=== PATIENT | female | born 1955 | race Caucasian/White ===

== ENCOUNTER 2016-12-10 16:05 | Inpatient (IN) ==
[2016-12-10] MEDS ORDERED: ASPIRIN 325 MG TABLET PO STA (18:21)
[2016-12-10] MEDS ORDERED: MORPHINE 2 MG/1 ML SYRINGE IV STA (18:21)
[2016-12-10] MEDS ORDERED: methylPREDNISolone SOD SUC 125 MG/2 ML VIAL IV STA (18:21)
[2016-12-10] MEDS ORDERED: FUROSEMIDE 100 MG/10 ML VIAL IV STA (18:21)
[2016-12-10] MEDS ORDERED: ONDANSETRON 4 MG/2 ML VIAL IV STA (18:21)
[2016-12-10 18:30] LABS: Basophils % 0.7 % (0.0-0.8); Eosinophils # 0.1 10*3/uL (0.0-0.87); Eosinophils % 1.1 % (0.00-10.9); Hemoglobin 10.1 GM/DL (12.0-16.0); Immature Granulocytes % 0.2 %; Immature Granulocytes Absolute 0.01 #; Lymphocytes % 18.3 % (21.3-54.2); Mean Corpuscular HGB Conc 28.6 GM/DL (32-36); Mean Corpuscular Hemoglobin 23 PG (27-34); Mean Corpuscular Volume 80.8 FL (87-102); Monocytes # 0.8 10*3/uL (0.11-0.8); Monocytes % 14.7 % (1.7-12.7); NRBC # 0.02 10*3/uL; Neutrophils # 3.7 10*3/uL (1.4-7.4); Platelet Count 114 10*3/uL (130-400); Red Blood Count 4.37 10*6/uL (3.8-5.5); Red Cell Distribution Width 17.6 % (9.3-17.3); White Blood Count 5.6 10*3/uL (4.5-13.71)
[2016-12-10] MEDS ORDERED: ALBUTEROL 2.5 MG/3 ML NEB RESP TX SCH (18:30)
[2016-12-10 18:31] LABS: Hematocrit 35.3 VOL% (35.7-47.0)
[2016-12-10] MEDS ORDERED: methylPREDNISolone SOD SUC 125 MG/2 ML VIAL ONE (18:35)
[2016-12-10] MEDS ORDERED: FUROSEMIDE 40 MG/4 ML VIAL ONE (18:35)
[2016-12-10] MEDS ORDERED: MORPHINE 2 MG/1 ML SYRINGE ONE (18:35)
[2016-12-10] MEDS ORDERED: FUROSEMIDE 20 MG/2 ML VIAL ONE (18:35)
[2016-12-10] MEDS ORDERED: ASPIRIN 325 MG TABLET ONE (18:35)
[2016-12-10] MEDS ORDERED: ONDANSETRON 4 MG/2 ML VIAL ONE (18:35)
--- NOTE | 2016-12-10 18:38 | XRay Report ---
PA chest. Indication: Shortness of breath. Comparison: October 30, 2016. The cardiac silhouette is markedly enlarged. The cardiac hardware is in satisfactory position. The pulmonary vasculature is normal. Obscuration of the left hemidiaphragm may be related to atelectasis or infiltrate. Mild atelectasis at the right lung base. Impression: Persistent enlargement of the cardiac silhouette. Bilateral basilar atelectasis. Infiltrate at the left base cannot be excluded. PROCEDURE INTERPRETED AT [facility] DEPARTMENT OF RADIOLOGY Final Report Signed by: Dr. Perla Nogueira
--- NOTE | 2016-12-10 18:45 | Emergency Department Note ---
IJuan Brittany, am scribing for, and in the presence of, Pelon Akers MD 18:26. Delphine Trujillo Charles R, MD, personally performed the services described in this documentation, ascribed by Genia Martinez in my presence, and it is both accurate and complete [id number] . Arrival - Arrival Chief Complaint: Shortness of Breath Stated Complaint: can't breath ED Nursing Triage Note: pt got more sob than normal over then weekend. pt was told by home health to come to the er for decreased breath sounds on rt lower lobe. Mode of Arrival: Wheelchair Limitations: No Limitations Source: Patient, Family Time Seen by Provider: 12/10/16 18:11 - History of Present Illness HPI Narrative: This is a 61 y/o white female,who presents to the ED with c/o dyspnea which started 2 days ago. Her family states she was seen by Home health over the weekend and had diminished breath sounds in the right lung. She reports she is SOB and nauseated. Per pt, "I feel like I'm 8 months from fluid." Pt has no other complaints/pain in the ED at this time. Pt has a PMHx of IDDM, CHF , HTN, pacemaker, cardiac dysrhythmia, COPD, obstructive sleep apnea, and GERD. Pt has had a cardiac cath, internal defibillator, colonoscopy, hysterectomy, gynecologic surgery, and orthopedic surgery. Pt has a family medical Hx of cancer, diabetes, heart disease, and HTN. Pt denies a social Hx. Onset (ago): day(s) (Started 2 days ago) Consistency: constant Severity: moderate Allergies/Adverse Reactions: Allergies Allergy/AdvReac Type Severity Reaction Status Date / Time nitrofurantoin Allergy ITCHING Verified 08/21/16 12:38 [From Macrobid] Penicillins Allergy ITCHING Verified 08/21/16 12:38 Home Medications: Home Medications Medication Instructions Recorded Confirmed Type Albuterol Sulfate [Ventolin HFA] 2 puff INH Q6HR PRN 05/03/16 12/10/16 History Cilostazol [Pletal] 50 mg PO BID 05/03/16 12/10/16 History Gabapentin 600 mg PO BID 05/03/16 12/10/16 History Insulin Glargine,Hum.rec.anlog 10 unit SUBCUT DAILY 05/03/16 12/10/16 History [Lantus SoloStar] Lisinopril 5 mg PO DAILY 05/03/16 12/10/16 History Pantoprazole Tab [Protonix Tab] 40 mg PO DAILY 05/03/16 12/10/16 History Zolpidem [Ambien] 5 mg PO BEDTIME PRN 05/03/16 12/10/16 History Budesonide/Formoterol 160-4.5 2 puff INH DAILY 05/04/16 12/10/16 History [Symbicort 160-4.5] Atorvastatin Calcium 10 mg PO DAILY 08/24/16 12/10/16 History Isosorbide Mononitrate [Isosorbide 30 mg PO QAM 08/24/16 12/10/16 History Mononitrate ER] PARoxetine [Paxil] 20 mg PO DAILY 08/24/16 12/10/16 History Carvedilol [Coreg] 6.25 mg PO BID #60 tablet 11/02/16 12/10/16 Rx Ferrous Sulfate Tab [Feosol 325 mg PO DAILY #30 tablet 11/02/16 12/10/16 Rx Original Tab] Furosemide Tab [Lasix Tab] 40 mg PO BID DIURETIC #60 tablet 11/02/16 12/10/16 Rx Aspirin Chew Tab 81 mg PO DAILY 12/10/16 12/10/16 History Digoxin Tab [Lanoxin Tab] 0.125 mg PO DAILY 12/10/16 12/10/16 History Levothyroxine Tab [Synthroid Tab] 125 mcg PO DAILY 12/10/16 12/10/16 History Sulfameth/Trimeth 800-160 Tab 1 tablet PO BID 12/10/16 12/10/16 History [Bactrim DS Tab] Medical,Surgical,& Family Hx - Medical History Cardio: History of: Cardiac Dysrhythmia, CHF, Hypertension, Pacemaker (ICD) Neurology: No history of: Seizures Endocrine: History of: Diabetes Mellitus (IDDM) Respiratory: History of: COPD, Obstructive Sleep Apnea, Pneumonia Genitourinary: History of: Kidney Stones Gastrointestinal: History of: GERD - Surgical History Cardiac Surgeries: Sugical HX of: Cardiac Catheterization, Internal Defibrillator Thoracic Surgeries: Patient denies;: Lobectomy Neurologic Surgeries: Patient denies: Neurologic Surgery HEENT Surgeries: Patient denies: Eye Surgery, Tonsilectomy & Adenoidectomy Abdominal Surgeries: Surgical HX of: Colonoscopy Reproductive Surgeries: Surgical HX of;: Gynecologic Surgery, Hysterectomy Orthopedic Surgeries: Surgical HX of;: Orthopedic Surgery - Family History Family History: Reports;: Family Cancer, Family Diabetes, Family Heart Disease, Family Hypertension - Social History Smoking Status: Never smoker Frequency of Alcohol Use: None Type of Drug Use: None Exam Vital Signs: Vital Signs Temperature 100.2 F H 12/10/16 17:06 Pulse Rate 88 12/10/16 17:06 Respiratory Rate 20 12/10/16 17:06 Blood Pressure 124/69 12/10/16 17:06 O2 Sat by Pulse Oximetry 94 L 12/10/16 17:06 Course - Consultations Consultation #1: Dr. Jerez will admit patient Time: 20:24 Results - Labs CBC & BMP: 12/10/16 18:14 12/10/16 18:14 Lab Results: I have reviewed the patients labs Critical Care Time Critical Care Time: Yes Total Critical Care Time: 60 Disposition Clinical Impression: Cardiomyopathy, Hypertension, CHF (congestive heart failure), Exertional dyspnea, CHF exacerbation Case discussed with: patient, patient's family Disposition: Still a Patient Condition: Guarded Time of Disposition: 20:25
[2016-12-10 18:54] LABS: Albumin 3.4 G/DL (3.4-5.0); Bilirubin,Total 2.9 MG/DL (0.2-1.0); Calcium 8.4 MG/DL (8.5-10.1); Osmolality,Calculated 290.8 MOS/KG (273-304); Total Protein 6.3 G/DL (6.4-8.3)
[2016-12-10 18:59] LABS: Troponin I Only 0.124 NG/ML (0.00-0.045)
--- NOTE | 2016-12-10 20:08 | CT Report ---
CT of the chest with intravenous contrast, PE protocol. Axial images were obtained with sagittal and coronal 2-D and 3 days reconstructions. 80 cc omni-350. Indication: Shortness of breath. Elevated d-dimer. There is no evidence of pulmonary thromboembolism. The cardiac silhouette is markedly enlarged. A pacemaker is in place. There is increased pericardial fluid inferiorly and posteriorly at the heart. There is a moderate right pleural effusion. There are shotty lymph nodes present in the hilar and mediastinal regions bilaterally, with maximum diameters measuring up to 12 mm. There are bilateral groundglass infiltrates, nonspecific but may be related to 6 pulmonary edema. There is a large hiatal hernia which contains the entire stomach which is turned upon itself. There is also a left Bochdalek hernia which contains fat. There is edema in the subcutaneous tissues. Impression: 1. No evidence of pulmonary thromboembolism. 2. Enlarged heart, with increased pericardial fluid. 3. Nonspecific groundglass infiltrates, may be related to pulmonary edema. 4. Moderate right pleural effusion. 5. Subcutaneous edema. 6. Large hiatal hernia containing the entire stomach, which is turned upon itself. Additional left Bochdalek hernia. PROCEDURE INTERPRETED AT [facility] DEPARTMENT OF RADIOLOGY Final Report Signed by: Dr. Perla Nogueira
[2016-12-10 20:32] LABS: Apearance,Urine CLEAR (Clear); Bilirubin,Urine Negative (Negative); Blood, Urine Negative (Negative); Glucose,Urine (UA) Negative (Negative); Ketones,Urine Negative (Negative); Mucus,Urine Occasional /LPF (Occasional); Nitrite,Urine Negative (Negative); Protein,Urine Negative; Squamous Epithelial Cell,Urine Occasional /HPF (0-10); Urine Color Yellow (Yellow); Urine Specific Gravity 1.006 (1.001-1.035); Urine Urobilinogen < 2.0 EU/DL (0.2-1.0); WBC,Urine <1 /HPF (0-6)
--- NOTE | 2016-12-10 21:31 | Hospitalist History & Physical ---
Assessment and Plan (1) CHF exacerbation Status: Acute Current Visit: Yes (2) Congestive heart failure Status: Acute Current Visit: Yes (3) Exertional dyspnea Status: Acute Current Visit: Yes (4) Cardiomyopathy Status: Chronic Current Visit: Yes (5) Chronic systolic (congestive) heart failure Status: Acute Assessment and plan: Plan for this patient 1 admit the patient to telemetry #2 IV diuresis #3 cardiology consult #4 2-D echo #5 home medications as appropriate #6 insulin sliding scale Current Visit: No History of Present Illness Chief complaint: shortness of breath History of present illness: Ms. Cotto is a 61 year old female with past medical history significant for congestive heart failure, COPD and diabetes who was in her normal state of health till the past couple days. Patient is short of breath at rest for the most part but it seem like her shortness of breath at steadily increased over the past 2 days. Home health checked on the patient today and I talked to Dr. Ferrell. She recommended the patient be taken to the emergency room for further evaluation. Patient found to have an elevated BNP and increasing pericardial effusion and a mild pleural effusion I was consulted to admit her Home Medications Medication Instructions Recorded Confirmed Type Albuterol Sulfate [Ventolin HFA] 2 puff INH Q6HR PRN 05/03/16 12/10/16 History Cilostazol [Pletal] 50 mg PO BID 05/03/16 12/10/16 History Gabapentin 600 mg PO BID 05/03/16 12/10/16 History Insulin Glargine,Hum.rec.anlog 10 unit SUBCUT DAILY 05/03/16 12/10/16 History [Lantus SoloStar] Lisinopril 5 mg PO DAILY 05/03/16 12/10/16 History Pantoprazole Tab [Protonix Tab] 40 mg PO DAILY 05/03/16 12/10/16 History Zolpidem [Ambien] 5 mg PO BEDTIME PRN 05/03/16 12/10/16 History Budesonide/Formoterol 160-4.5 2 puff INH DAILY 05/04/16 12/10/16 History [Symbicort 160-4.5] Atorvastatin Calcium 10 mg PO DAILY 08/24/16 12/10/16 History Isosorbide Mononitrate [Isosorbide 30 mg PO QAM 08/24/16 12/10/16 History Mononitrate ER] PARoxetine [Paxil] 20 mg PO DAILY 08/24/16 12/10/16 History Carvedilol [Coreg] 6.25 mg PO BID #60 tablet 11/02/16 12/10/16 Rx Ferrous Sulfate Tab [Feosol 325 mg PO DAILY #30 tablet 11/02/16 12/10/16 Rx Original Tab] Furosemide Tab [Lasix Tab] 40 mg PO BID DIURETIC #60 tablet 11/02/16 12/10/16 Rx Aspirin Chew Tab 81 mg PO DAILY 12/10/16 12/10/16 History Digoxin Tab [Lanoxin Tab] 0.125 mg PO DAILY 12/10/16 12/10/16 History Levothyroxine Tab [Synthroid Tab] 125 mcg PO DAILY 12/10/16 12/10/16 History Sulfameth/Trimeth 800-160 Tab 1 tablet PO BID 12/10/16 12/10/16 History [Bactrim DS Tab] Allergies Allergy/AdvReac Type Severity Reaction Status Date / Time nitrofurantoin Allergy ITCHING Verified 08/21/16 12:38 [From Macrobid] Penicillins Allergy ITCHING Verified 08/21/16 12:38 Medical,Surgical,& Family Hx - Medical History Cardio: History of: Cardiac Dysrhythmia, CHF, Hypertension, Pacemaker (ICD) Neurology: No history of: Seizures Endocrine: History of: Diabetes Mellitus (IDDM) Respiratory: History of: COPD, Obstructive Sleep Apnea, Pneumonia Genitourinary: History of: Kidney Stones Gastrointestinal: History of: GERD - Surgical History Cardiac Surgeries: Sugical HX of: Cardiac Catheterization, Internal Defibrillator Thoracic Surgeries: Patient denies;: Lobectomy Neurologic Surgeries: Patient denies: Neurologic Surgery HEENT Surgeries: Patient denies: Eye Surgery, Tonsilectomy & Adenoidectomy Abdominal Surgeries: Surgical HX of: Colonoscopy Reproductive Surgeries: Surgical HX of;: Gynecologic Surgery, Hysterectomy Orthopedic Surgeries: Surgical HX of;: Orthopedic Surgery - Family History Family History: Reports;: Family Cancer, Family Diabetes, Family Heart Disease, Family Hypertension - Social History Smoking Status: Never smoker Frequency of Alcohol Use: None Type of Drug Use: None 12 point system: reviewed and no additional remarkable complaints except as stated Exam - Constitutional Vitals: Period Temp Pulse Resp BP Sys/Cazares Pulse Ox Last 24 Hr 99.4 F-100.2 F 88-102 20-20 124-133/69-89 94-97 General appearance: morbidly obese - Head Head exam: Present: normal inspection - Eye Eye exam: Present: EOMI Pupils: Present: JUNIOR - ENT ENT exam: Present: normal exam - Neck Neck exam: Present: normal inspection - Respiratory Respiratory exam: Present: rales - Cardiovascular Cardiovascular exam: Present: regular rate and rhythm - GI/Abdominal GI/Abdominal exam: Present: normal bowel sounds - Extremities Exam Extremities exam: Present: edema - Back Exam Back exam: Present: normal inspection Results - Labs CBC & BMP: 12/10/16 18:14 12/10/16 18:14
[2016-12-10] MEDS ORDERED: GLUCAGON 1 MG VIAL IM PRN (21:34)
[2016-12-10] MEDS ORDERED: MAGNESIUM SULF RIDER 2 GM in PREMIX 1 EACH IV PRN (21:34)
[2016-12-10] MEDS ORDERED: MAGNESIUM SULF RIDER 4 GM in PREMIX 1 EACH IV PRN (21:34)
[2016-12-10] MEDS ORDERED: DEXTROSE 50% 25 GM/50 ML VIAL IV PRN (21:34)
[2016-12-10] MEDS ORDERED: ALBUTEROL 2.5 MG/3 ML NEB RESP TX PRN (21:38)
[2016-12-10] MEDS ORDERED: ZALEPLON 5 MG CAPSULE PO PRN (21:38)
[2016-12-10] MEDS: ENOXAPARIN 40 MG/0.4 ML SYRINGE SUBCUT SCH (23:11)
[2016-12-10] MEDS: CARVEDILOL 6.25 MG TABLET PO SCH (23:11)
[2016-12-11 00:11] LABS: Troponin I Only 0.098 NG/ML (0.00-0.045)
[2016-12-11 02:26] LABS: Troponin I Only 0.087 NG/ML (0.00-0.045)
[2016-12-11 02:31] LABS: Basophils % 0.2 % (0.0-0.8); Eosinophils % 0.2 % (0.00-10.9); Hematocrit 35.9 VOL% (35.7-47.0); Hemoglobin 10.3 GM/DL (12.0-16.0); Immature Granulocytes % 1.1 %; Immature Granulocytes Absolute 0.05 #; Lymphocytes # 0.3 10*3/uL (1.4-4.0); Lymphocytes % 7.3 % (21.3-54.2); Mean Corpuscular HGB Conc 28.7 GM/DL (32-36); Mean Corpuscular Hemoglobin 23 PG (27-34); Monocytes # 0.1 10*3/uL (0.11-0.8); NRBC # 0.02 10*3/uL; Neutrophils % 89.2 % (38.7-73.9); Red Blood Count 4.43 10*6/uL (3.8-5.5); Red Cell Distribution Width 17.7 % (9.3-17.3); White Blood Count 4.5 10*3/uL (4.5-13.71)
[2016-12-11 02:33] LABS: Platelet Count 92 10*3/uL (130-400)
[2016-12-11 02:45] LABS: Calcium 8.3 MG/DL (8.5-10.1); Osmolality,Calculated 294.8 MOS/KG (273-304); Potassium 4.3 MMOL/L (3.5-5.1)
[2016-12-11] MEDS: LEVOTHYROXINE 125 MCG TABLET PO SCH (06:10)
[2016-12-11] MEDS ORDERED: FUROSEMIDE 40 MG/4 ML VIAL IV SCH (08:00)
[2016-12-11] MEDS: SULFAMETHOX/TRIMETHOPRIM 800-160 MG TABLET PO SCH ×2 (08:35→20:38)
[2016-12-11] MEDS: ATORVASTATIN 10 MG TABLET PO SCH (08:35)
[2016-12-11] MEDS: PARoxetine 20 MG TABLET PO SCH (08:35)
[2016-12-11] MEDS: ASPIRIN CHEW 81 MG TABLET PO SCH (08:35)
[2016-12-11] MEDS: GABAPENTIN 600 MG TABLET PO SCH ×2 (08:35→20:38)
[2016-12-11] MEDS: CARVEDILOL 6.25 MG TABLET PO SCH ×2 (08:35→20:38)
[2016-12-11] MEDS: ISOSORBIDE MONONITRATE 30 MG TABLET PO SCH (08:35)
[2016-12-11] MEDS: FERROUS SULFATE 325 MG TABLET PO SCH (08:35)
[2016-12-11] MEDS: INSULIN REGULAR 100 UNIT/ML SUBCUT SCH ×4 (08:36→20:39)
--- NOTE | 2016-12-11 09:03 | Cardiology Consult Note ---
<Dee Dee Torres E - Last Filed: 12/11/16 09:49> Assessment and Plan - Time spent with patient Time spent with patient: Greater than 30 minutes (1) Acute on chronic systolic CHF (congestive heart failure) Status: Acute Assessment and plan: Acute on chronic congestive heart failure secondary to severely decreased LVEF of 20-25%. NYHA Class III-IV. Continue with diuresis, strict I&O and daily weights. IV Lasix. Current Visit: Yes (2) NICM (nonischemic cardiomyopathy) Status: Chronic Assessment and plan: Continue current plan of care. Current Visit: Yes (3) Diabetes Status: Chronic Current Visit: Yes (4) Biventricular ICD (implantable cardioverter-defibrillator) in place Status: Chronic Assessment and plan: Recently interrogated in October 2016. Current Visit: Yes (5) Dyslipidemia Status: Chronic Assessment and plan: Continue current plan of care. Current Visit: Yes (6) Hypothyroidism Status: Chronic Assessment and plan: Continue current plan of care. Current Visit: Yes (7) COPD (chronic obstructive pulmonary disease) Status: Chronic Current Visit: Yes (8) Thrombocytopenia Status: Chronic Assessment and plan: We'll defer further workup and management of this to attending. Current Visit: Yes (9) Hypertension Status: Chronic Assessment and plan: Usually well controlled. Will adjust medications accordingly as needed during the hospital stay. She is tolerating beta-blockade without problems. Home medications include lisinopril. I am going to restart this this morning. Current Visit: Yes (10) Obstructive sleep apnea syndrome Status: Chronic Assessment and plan: May use her sleep device during hospital stay. Current Visit: No (11) Pericardial effusion Status: Acute Assessment and plan: Echocardiogram has been ordered. No evidence of tamponade by physical exam and we'll await final interpretation of echo. Current Visit: Yes (12) Elevated troponin Status: Acute Assessment and plan: Troponin is mildly elevated and trending down. In view of other hospitalizations, last time she was admitted (October 2016) cyst troponin was mildly elevated at that time. She has a history of nonischemic cardiomyopathy though heart catheterization is approximate 2 years ago. We will continue to monitor her troponin and cardiac biomarkers. Current Visit: Yes History of Present Illness - Data of Consult Patient: known to practice within the last 3 years Consult date: 12/11/16 Requesting Physician: Fili Jerez Primary care physician: Hannah Ferrell - Consult Narrative Reason for consult: shortness of breath, enlarging pericardial effusion History of present illness: Ms. Cotto is a 61 year old female routinely followed by Dr. Morales. Risk factors include: hypertension, dyslipidemia, diabetes, obesity and sedentary lifestyle. History of known CHF, COPD, nonischemic cardiomyopathy, URMILA. She is status post by the ICD implantation. She was last seen in Dr. Morales's office November 20, 2016 after being hospitalized to [facility] for CHF. She was diagnosed with nonischemic cardiomyopathy in 2014, LVEF was 25%. Dr. Jones is a 1 perform cardiac catheterization. We do not have that official report the records from Dr. Morales's office reveal she had no known coronary artery disease. She had moderate symptomatic improvement with CURTAIN STITCHER-D after adjustments made Fall 2015. Patient was admitted to the emergency department [facility] last evening after her home health nurse expressed to her primary care provider that she had been expecting worsened shortness of breath for approximately 2 days. She denies cough or fever. She denies chest pain, heaviness, tightness. She reports that she has been chronically short of breath for many months but found that it has worsened in the past several days. She acknowledges she may have mild orthopnea or bilateral lower extremity swelling that she is very edematous ongoing evaluation. She does have a 4 cm jugular vein distention to the jaw. She underwent chest x-ray and ultimately CT of her chest last night which revealed an enlarged pericardial effusion and no PE. See report for additional information. Troponin is mildly elevated at 0.124, now down to 0.087. During her past admission her troponin was noted to be 0.114. Her platelet count has dropped overnight to 92. Upon review of her prior records, she has had chronically low platelet count. At discharge in October, thyroid nodule was noted. She was sent for fine-needle aspiration as performed by Dr. Slaughter. She tells me Dr. Ferrell reported stable pathology results and she is following this. Pro BNP is 1560. Of note, this is the lowest it has ever been on her [facility] admissions. D-dimer elevated but CT Chest negative for PE. Patient reports dietary compliance including avoiding foods high in sodium. Echo has been ordered. CC: Fili Jerez MD - Home Medications and Allergies Home Medications: Home Medications Medication Instructions Recorded Confirmed Type Albuterol Sulfate [Ventolin HFA] 2 puff INH Q6HR PRN 05/03/16 12/10/16 History Cilostazol [Pletal] 50 mg PO BID 05/03/16 12/10/16 History Gabapentin 600 mg PO BID 05/03/16 12/10/16 History Insulin Glargine,Hum.rec.anlog 10 unit SUBCUT DAILY 05/03/16 12/10/16 History [Lantus SoloStar] Lisinopril 5 mg PO DAILY 05/03/16 12/10/16 History Pantoprazole Tab [Protonix Tab] 40 mg PO DAILY 05/03/16 12/10/16 History Zolpidem [Ambien] 5 mg PO BEDTIME PRN 05/03/16 12/10/16 History Budesonide/Formoterol 160-4.5 2 puff INH DAILY 05/04/16 12/10/16 History [Symbicort 160-4.5] Atorvastatin Calcium 10 mg PO DAILY 08/24/16 12/10/16 History Isosorbide Mononitrate [Isosorbide 30 mg PO QAM 08/24/16 12/10/16 History Mononitrate ER] PARoxetine [Paxil] 20 mg PO DAILY 08/24/16 12/10/16 History Carvedilol [Coreg] 6.25 mg PO BID #60 tablet 11/02/16 12/10/16 Rx Ferrous Sulfate Tab [Feosol 325 mg PO DAILY #30 tablet 11/02/16 12/10/16 Rx Original Tab] Furosemide Tab [Lasix Tab] 40 mg PO BID DIURETIC #60 tablet 11/02/16 12/10/16 Rx Aspirin Chew Tab 81 mg PO DAILY 12/10/16 12/10/16 History Digoxin Tab [Lanoxin Tab] 0.125 mg PO DAILY 12/10/16 12/10/16 History Levothyroxine Tab [Synthroid Tab] 125 mcg PO DAILY 12/10/16 12/10/16 History Sulfameth/Trimeth 800-160 Tab 1 tablet PO BID 12/10/16 12/10/16 History [Bactrim DS Tab] Allergies/Adverse Reactions: Allergies Allergy/AdvReac Type Severity Reaction Status Date / Time nitrofurantoin Allergy ITCHING Verified 08/21/16 12:38 [From Macrobid] Penicillins Allergy ITCHING Verified 08/21/16 12:38 Review of systems: REVIEW OF SYSTEMS: - Constitutional Constitutional: Present: Fatigue. Absent: syncope, anorexia, night sweats - EENT Eyes: Absent: blurry vision, loss of vision, diplopia Ears: Absent: decreased hearing, ear pain, ear discharge - Cardiovascular Cardiovascular: Present: chest pain with exertion, dyspnea on exertion, edema, palpitations. Absent: chest pain with deep breath, claudication, - Respiratory Respiratory: HERNANDEZ, denies cough. Short of breath at rest. Some degree of orthopnea acknowledged. Absent: wheezing, hemoptysis, change in phlegm color - Gastrointestinal Gastrointestinal: Denies constipation and has had mild diarrhea. Absent: abdominal pain, hematemesis, hematochezia, melena, change in bowel habits, nausea - Genitourinary Genitourinary: Absent: difficulty urinating, dysuria, urinary hesitancy, flank pain - Musculoskeletal Musculoskeletal: Present: back pain Absent: joint swelling, muscle cramps, muscle weakness - Neurological Neurological: Present: normal gait without frequent falls. Absent: dizziness, hemiparesis - Psychiatric Psychiatric: Absent: anxiety, depression, difficulty concentrating - Endocrine Endocrine: Present: fatigue. Absent: cold intolerance, heat intolerance, polyuria, polyphagia, polydipsia - Hematologic/Lymphatic Hematologic/Lymphatic: Present: easy bruising. Absent: easy bleeding, easy bruisability -Integumentary Integumentary: Pea-sized diabetic ulcer to right pastor she has been treating at home and believes this to be much improved Absent: rashes, skin breakdown Medical,Surgical,& Family Hx - Medical History Cardio: History of: Cardiac Dysrhythmia, CHF, Hypertension, Pacemaker (ICD) No history of: CAD Neurology: No history of: Seizures Endocrine: History of: Diabetes Mellitus (IDDM) Respiratory: History of: COPD, Obstructive Sleep Apnea, Pneumonia Genitourinary: History of: Kidney Stones Gastrointestinal: History of: GERD - Surgical History Cardiac Surgeries: Sugical HX of: Cardiac Catheterization, Internal Defibrillator Thoracic Surgeries: Patient denies;: Lobectomy Neurologic Surgeries: Patient denies: Neurologic Surgery HEENT Surgeries: Patient denies: Eye Surgery, Tonsilectomy & Adenoidectomy Abdominal Surgeries: Surgical HX of: Colonoscopy Reproductive Surgeries: Surgical HX of;: Gynecologic Surgery, Hysterectomy Orthopedic Surgeries: Surgical HX of;: Orthopedic Surgery - Family History Family History: Reports;: Family Cancer, Family Diabetes, Family Heart Disease, Family Hypertension - Social History Smoking Status: Never smoker Frequency of Alcohol Use: None Type of Drug Use: None Physical Examination Vital Signs Temp Pulse Resp BP Pulse Ox 99.4 F 88 20 133/89 97 12/10/16 16:10 12/10/16 16:10 12/10/16 16:10 12/10/16 16:10 12/10/16 16:10 General: Appears well with no apparent distress. Pleasant and cooperative. Appears comfortable. HEENT: PERRL, normocephalic, atraumatic. Mucous membranes moist. No jaundice noted. Conjunctiva moist and clear, sclerae anicteric Neck: 4 cm JVD to jaw. No lymphadenopathy noted. No carotid bruit appreciated Cardiac: Regular rate and rhythm. No murmur rub or gallop. . Lungs: His respiratory crackles noted posteriorly midway of the right posterior lung bennett. No wheezing noted. Requiring oxygen intermittently. Abdomen: Soft, bowel sounds normoactive. Nontender and nondistended. No abdominal bruit or thrill noted. No masses noted. Musculoskeletal: No fluid collection. Decreased range of motion is noted. Extremities: No clubbing, cyanosis noted. 2-3+ pitting edema bilateral lower extremities. Upper extremity pulses 2+. Lower extremity pulses 1+. Capillary refill less than 3 seconds. Skin: Pea-sized ulcer noted right pastor. No skin breakdown appreciated. Neuro: Awake, alert and oriented 3. Moves all extremities well without hemiparesis or paralysis. No essential tremor is appreciated. Result/EKG - Labs CBC & BMP: 12/11/16 01:01 12/11/16 01:01 Lab Results: I have reviewed the past 24 hour labs Labs: Laboratory Results - last 24 hr 12/10/16 12/11/16 12/11/16 23:17 01:01 01:01 WBC 4.5 RBC 4.43 Hgb 10.3 L Hct 35.9 MCV 81.0 L MCH 23 L MCHC 28.7 L RDW 17.7 H Plt Count 92 L Neut % (Auto) 89.2 H Lymph % (Auto) 7.3 L Phillips % (Auto) 2.0 Eos % (Auto) 0.2 Baso % (Auto) 0.2 Neut # (Auto) 4.0 Lymph # (Auto) 0.3 L Phillips # (Auto) 0.1 L Eos # (Auto) 0.0 Baso # (Auto) 0.0 Immature Gran % 1.1 Nucleated RBC % 0.4 Immature Gran # 0.05 Nucleated RBCs # 0.02 Sodium Potassium Chloride Carbon Dioxide Anion Gap BUN Creatinine GFR Calculation BUN/Creatinine Ratio Glucose POC Glucose Calculated Osmolality Calcium Total Creatine Kinase 86 80 CK-MB (CK-2) 1.6 1.8 Troponin I 0.098 H D 0.087 H 12/11/16 12/11/16 01:01 07:21 WBC RBC Hgb Hct MCV MCH MCHC RDW Plt Count Neut % (Auto) Lymph % (Auto) Phillips % (Auto) Eos % (Auto) Baso % (Auto) Neut # (Auto) Lymph # (Auto) Phillips # (Auto) Eos # (Auto) Baso # (Auto) Immature Gran % Nucleated RBC % Immature Gran # Nucleated RBCs # Sodium 144 Potassium 4.3 Chloride 107 Carbon Dioxide 24 Anion Gap 17.3 H BUN 23 H Creatinine 1.10 H GFR Calculation 71 BUN/Creatinine Ratio 20.00 Glucose 182 H POC Glucose 225 H Calculated Osmolality 294.8 Calcium 8.3 L Total Creatine Kinase CK-MB (CK-2) Troponin I - Diagnostic Findings Procedure: Chest x-ray: report reviewed by me, CT - chest: report reviewed by me - EKG EKG results: interpreted by pa EKG shows: sinus rhythm <Ramy Dudley - Last Filed: 12/11/16 22:28> History of Present Illness - Consult Narrative History of present illness: Ms. Cotto is a 61 year old female CC: Fili Jerez MD Physical Examination Vital Signs Temp Pulse Resp BP Pulse Ox 99.4 F 88 20 133/89 97 12/10/16 16:10 12/10/16 16:10 12/10/16 16:10 12/10/16 16:10 12/10/16 16:10 Result/EKG - Labs CBC & BMP: 12/11/16 01:01 12/11/16 01:01 Labs: Laboratory Results - last 24 hr 12/10/16 12/11/16 12/11/16 23:17 01:01 01:01 WBC 4.5 RBC 4.43 Hgb 10.3 L Hct 35.9 MCV 81.0 L MCH 23 L MCHC 28.7 L RDW 17.7 H Plt Count 92 L Neut % (Auto) 89.2 H Lymph % (Auto) 7.3 L Phillips % (Auto) 2.0 Eos % (Auto) 0.2 Baso % (Auto) 0.2 Neut # (Auto) 4.0 Lymph # (Auto) 0.3 L Phillips # (Auto) 0.1 L Eos # (Auto) 0.0 Baso # (Auto) 0.0 Immature Gran % 1.1 Nucleated RBC % 0.4 Immature Gran # 0.05 Nucleated RBCs # 0.02 Sodium Potassium Chloride Carbon Dioxide Anion Gap BUN Creatinine GFR Calculation BUN/Creatinine Ratio Glucose POC Glucose Calculated Osmolality Calcium Total Creatine Kinase 86 80 CK-MB (CK-2) 1.6 1.8 Troponin I 0.098 H D 0.087 H 12/11/16 12/11/16 12/11/16 01:01 07:21 11:33 WBC RBC Hgb Hct MCV MCH MCHC RDW Plt Count Neut % (Auto) Lymph % (Auto) Phillips % (Auto) Eos % (Auto) Baso % (Auto) Neut # (Auto) Lymph # (Auto) Phillips # (Auto) Eos # (Auto) Baso # (Auto) Immature Gran % Nucleated RBC % Immature Gran # Nucleated RBCs # Sodium 144 Potassium 4.3 Chloride 107 Carbon Dioxide 24 Anion Gap 17.3 H BUN 23 H Creatinine 1.10 H GFR Calculation 71 BUN/Creatinine Ratio 20.00 Glucose 182 H POC Glucose 225 H 269 H Calculated Osmolality 294.8 Calcium 8.3 L Total Creatine Kinase CK-MB (CK-2) Troponin I 12/11/16 12/11/16 16:17 20:32 WBC RBC Hgb Hct MCV MCH MCHC RDW Plt Count Neut % (Auto) Lymph % (Auto) Phillips % (Auto) Eos % (Auto) Baso % (Auto) Neut # (Auto) Lymph # (Auto) Phillips # (Auto) Eos # (Auto) Baso # (Auto) Immature Gran % Nucleated RBC % Immature Gran # Nucleated RBCs # Sodium Potassium Chloride Carbon Dioxide Anion Gap BUN Creatinine GFR Calculation BUN/Creatinine Ratio Glucose POC Glucose 227 H 245 H Calculated Osmolality Calcium Total Creatine Kinase CK-MB (CK-2) Troponin I
[2016-12-11] MEDS ORDERED: LISINOPRIL 2.5 MG TABLET PO SCH (10:00)
--- NOTE | 2016-12-11 11:23 | Hospitalist Progress Note ---
Assessment and Plan (1) CHF exacerbation Status: Deleted Current Visit: Yes (2) Congestive heart failure Status: Acute Current Visit: Yes (3) Exertional dyspnea Status: Acute Current Visit: Yes (4) Cardiomyopathy Status: Chronic Current Visit: Yes (5) Chronic systolic (congestive) heart failure Status: Acute Assessment and plan: Plan for this patient 1 admit the patient to telemetry #2 IV diuresis #3 cardiology consult #4 2-D echo #5 home medications as appropriate #6 insulin sliding scale 12/11/16 continue with IV diuresis while in the hospital. Cardiology was can add back her lisinopril. Need to monitor kidney function. Need to follow up on her 2-D echo to see if her ejection fraction has deteriorated more. Need to evaluate for the pericardial effusion. Current Visit: No Hospitalist: Subjective Interval history: Overall patient reports feeling a little bit better. She reports not being short of breath when she exerts herself Exam - Constitutional Vitals: Period Temp Pulse Resp BP Sys/Cazares Pulse Ox Last 24 Hr 96.4 F-97.9 F 70-99 20-20 118-125/62-78 94-97 General appearance: morbidly obese - Head Head exam: Present: normal inspection - Eye Eye exam: Present: EOMI Pupils: Present: JUNIOR - ENT ENT exam: Present: normal exam - Neck Neck exam: Present: normal inspection - Respiratory Respiratory exam: Present: rales - Cardiovascular Cardiovascular exam: Present: regular rate and rhythm - GI/Abdominal GI/Abdominal exam: Present: normal bowel sounds - Extremities Exam Extremities exam: Present: edema - Back Exam Back exam: Present: normal inspection Results - Labs CBC & BMP: 12/11/16 01:01 12/11/16 01:01
[2016-12-11] MEDS: BUDESONIDE/FORMOTEROL 160-4.5 INHALER 6 GM INH SCH (11:37)
[2016-12-11] MEDS: CILOSTAZOL 50 MG TABLET PO SCH ×2 (11:37→20:38)
[2016-12-11] MEDS: DIGOXIN 0.125 MG TABLET PO SCH (14:27)
[2016-12-11] MEDS: FUROSEMIDE 40 MG/4 ML VIAL IV SCH (16:31)
[2016-12-11] MEDS: ENOXAPARIN 40 MG/0.4 ML SYRINGE SUBCUT SCH (20:38)
[2016-12-11] MEDS: rOPINIRole 0.25 MG TABLET PO SCH (20:38)
--- NOTE | 2016-12-11 21:43 | ECHO Report ---
Veronica Cotto Exam Date: 12/11/2016 08:35 Referring Physician: Technologist: Radha Hancock RDCS Age: 61 Ht (in): Wt (lb): Gender: F Exam Location: [facility] Echo Indications: Chronic systolic (congestive) heart failure, Dyspnea, unspecified, Cardiomyopathy, unspecified, IDDM, Pericardial effusion, COPD, URMILA, Edema, unspecified BP: / HR: Rhythm: Sinus Technical Quality: Good IMPRESSIONS Severely increased left ventricular cavity size. Mild left ventricular hypertrophy. Left ventricular ejection fraction is estimated at 15 %. Right ventricular size. Moderately increased right atrial size. Moderately increased left atrial size. Mildly thickened mitral valve with mild - 2+ mitral regurgitation. Morphologically normal aortic valve without significant sclerosis or stenosis. Mild to moderate tricuspid valve regurgitation. Tricuspid regurgitation velocities suggest a PAP of 50 mmHg. Trace pulmonary valve regurgitation. Trivial pericardial effusion. MEASUREMENTS (Male / Female) Normal Values 2D ECHO LV Diastolic Diameter PLAX 8.5 cm 4.2 - 5.9 / 3.9 - 5.3 cm LV Systolic Diameter PLAX 8.0 cm LV Fractional Shortening PLAX 5.1 % IVS Diastolic Thickness 1.1 cm 0.6 - 1.0 / 0.6 - 0.9 cm LVPW Diastolic Thickness 1.1 cm 0.6 - 1.0 / 0.6 - 0.9 cm RV Internal Dim ED PLAX 4.3 cm Aortic Root Diameter 3.0 cm LA Systolic Diameter LX 5.3 cm 3.0 - 4.0 / 2.7 - 3.8 cm DOPPLER TR Peak Velocity 316.0 cm/s TR Peak Gradient 39.9 mmHg FINDINGS Left Ventricle Severely increased left ventricular cavity size. Mild left ventricular hypertrophy. Left ventricular ejection fraction is estimated at 15 %. Right Ventricle 1 + incr. right ventricular size. Pacemaker wire visualized in the right ventricle. Right Atrium Moderately increased right atrial size. Pacemaker wire in the right atrial cavity. Left Atrium Moderately increased left atrial size. Mitral Valve Mildly thickened mitral valve with mild - 2+ mitral regurgitation. Aortic Valve Morphologically normal aortic valve without significant sclerosis or stenosis. There is no aortic regurgitation. Tricuspid Valve Morphologically normal tricuspid valve. Mild to moderate tricuspid valve regurgitation. Tricuspid regurgitation velocities suggest a PAP of 50 mmHg. Pulmonic Valve Morphologically normal pulmonic valve. Trace pulmonary valve regurgitation. Pericardium Trivial pericardial effusion. Aorta Normal ascending aorta dimension. Mendez Jacinto MD (Electronically Signed) Final Date: 11 December 2016 21:42
[2016-12-12 06:00] LABS: Calcium 8.1 MG/DL (8.5-10.1); Magnesium 2.1 MG/DL (1.8-2.4); Osmolality,Calculated 294.7 MOS/KG (273-304)
[2016-12-12] MEDS: LEVOTHYROXINE 125 MCG TABLET PO SCH (07:01)
[2016-12-12] MEDS: ASPIRIN CHEW 81 MG TABLET PO SCH (09:38)
[2016-12-12] MEDS: SACUBITRIL/VALSARTAN 49-51 MG TABLET PO SCH ×2 (09:38→20:30)
[2016-12-12] MEDS: ISOSORBIDE MONONITRATE 30 MG TABLET PO SCH (09:38)
[2016-12-12] MEDS: SULFAMETHOX/TRIMETHOPRIM 800-160 MG TABLET PO SCH ×2 (09:38→20:30)
[2016-12-12] MEDS: FERROUS SULFATE 325 MG TABLET PO SCH (09:38)
[2016-12-12] MEDS: ATORVASTATIN 10 MG TABLET PO SCH (09:38)
[2016-12-12] MEDS: CARVEDILOL 6.25 MG TABLET PO SCH ×2 (09:39→20:30)
[2016-12-12] MEDS: GABAPENTIN 600 MG TABLET PO SCH ×2 (09:39→20:30)
[2016-12-12] MEDS: PARoxetine 20 MG TABLET PO SCH (09:39)
[2016-12-12] MEDS: SPIRONOLACTONE 50 MG TABLET PO SCH (09:39)
[2016-12-12] MEDS: FUROSEMIDE 40 MG/4 ML VIAL IV SCH ×2 (09:39→16:10)
[2016-12-12] MEDS: INSULIN REGULAR 100 UNIT/ML SUBCUT SCH ×4 (09:39→20:31)
[2016-12-12] MEDS: BUDESONIDE/FORMOTEROL 160-4.5 INHALER 6 GM INH SCH (09:42)
--- NOTE | 2016-12-12 09:53 | EKG Report ---
Stationary ECG Study [facility] Test Date: 12/12/2016 9:20:52 AM Pat Name: QUIANA DURAN Department: Room: 286 Gender: F Resource Conservation Specialist: : [id number] Requested by: Ramy Mondragon Order Number: [id number] Reading MD: ALEJANDRO REICH Intervals [place] Rate: 84 P: 51 SD: 162 QRS: 134 QRSD: 161 T: -28 QT: 414 QTc: 454 Interpretive Statements SINUS RHYTHM WITH ELECTRONIC VENTRICULAR PACEMAKER TRACKING Electronically Signed On 12-14-16 13:06:23 POLICY VALUE CALCULATOR by ALEJANDRO REICH [email or web address]
--- NOTE | 2016-12-12 10:32 | Cardiology Progress Note ---
<Dee Dee Torres E - Last Filed: 12/12/16 10:39> Assessment and Plan - Time spent with patient Time spent with patient: Less than 30 minutes (1) Acute on chronic systolic CHF (congestive heart failure) Status: Acute Assessment and plan: Acute on chronic congestive heart failure secondary to severely decreased LVEF of 10-15%. NYHA Class III. today. Continue with diuresis, strict I&O and daily weights. IV Lasix. Spironolactone Current Visit: Yes (2) NICM (nonischemic cardiomyopathy) Status: Chronic Assessment and plan: Continue current plan of care. Current Visit: Yes (3) Diabetes Status: Chronic Current Visit: Yes (4) Biventricular ICD (implantable cardioverter-defibrillator) in place Status: Chronic Assessment and plan: Recently interrogated in October 2016. Current Visit: Yes (5) Dyslipidemia Status: Chronic Assessment and plan: Continue current plan of care. Current Visit: Yes (6) Hypothyroidism Status: Chronic Assessment and plan: Continue current plan of care. Current Visit: Yes (7) COPD (chronic obstructive pulmonary disease) Status: Chronic Current Visit: Yes (8) Thrombocytopenia Status: Chronic Assessment and plan: We'll defer further workup and management of this to attending. Current Visit: Yes (9) Hypertension Status: Chronic Assessment and plan: Usually well controlled. Will adjust medications accordingly as needed during the hospital stay. She is tolerating beta-blockade without problems. Home medications include lisinopril. I am going to restart this this morning. Current Visit: Yes (10) Obstructive sleep apnea syndrome Status: Chronic Assessment and plan: Sleep Medicine classroom technology technician consulted Current Visit: No (11) Pericardial effusion Status: Acute Assessment and plan: Echocardiogram has been ordered. No evidence of tamponade by physical exam and we'll await final interpretation of echo. Current Visit: Yes (12) Elevated troponin Status: Acute Assessment and plan: Troponin is mildly elevated and trending down. In view of other hospitalizations, last time she was admitted (October 2016) cyst troponin was mildly elevated at that time. She has a history of nonischemic cardiomyopathy though heart catheterization is approximate 2 years ago. This is NOT NSTEMI. Current Visit: Yes Cardiology - PN: Subj Interval history: Ms. Cotto is a 61 year old female routinely followed by Dr. Morales. Risk factors include: hypertension, dyslipidemia, diabetes, obesity and sedentary lifestyle. History of known CHF, COPD, nonischemic cardiomyopathy, URMILA. She is status post by the ICD implantation. She was last seen in Dr. Morales's office November 20, 2016 after being hospitalized to [facility] for CHF. Diagnosed with nonischemic cardiomyopathy in 2014, LVEF was 25% . Dr. Shaikh performed cardiac catheterization 2014. Patient was admitted to the emergency department [facility] Saturday with complaints of worsened shortness of breath and edema. She was diagnosed with acute on chronic CHF secondary to severely reduced LVEF (10%- 15%), NYHA Classication III-IV on admission. CT Chest Saturday revealed an enlarged pericardial effusion and no PE. However, echo found only tiny pericardial effusion. 1. Significantly overweight 61-year-old WF with severe nonischemic cardiomyopathy status post biventricular ICD placement in April 2016, with multiple admissions for acute on chronic systolic heart failure including last month. Continues to improve overnight. Still orthopneic but improved. 2. Added spironolactone 50 mg every morning, and we continue to watch renal function and electrolytes. Has lost 2 kg overnight. 3. Discontinued Pletal since this is contraindicated in advanced heart failure patients 4. Low dose Entresto has been initiated this morning. 5. URMILA, but not using her CPAP because "my machine ss broke". Sleep Medicine classroom technology technician has been consulted. 6. Continue IV diuresis with daily weights and strick I&0. 7. ICD/pacemaker was recently interrogated last month 8. Ejection fraction of 10-15% noted today is unchanged from last month; there is only a tiny pericardial effusion 9. Pulmonary hypertension is likely related to left heart failure but also may be related to URMILA Exam (Progress Note) - Constitutional Vitals: Period Temp Pulse Resp BP Sys/Cazares Pulse Ox Last 24 Hr 96.7 F-98.7 F 63-82 20-20 94-116/50-61 90-98 Exam: General: Appears well with no apparent distress. Pleasant and cooperative. Appears comfortable. HEENT: PERRL, normocephalic, atraumatic. Mucous membranes moist. No jaundice noted. Conjunctiva moist and clear, sclerae anicteric Neck: No JVD/HJR, no thyromegaly or lymphadenopathy noted. No carotid bruit appreciated Cardiac: Regular rate and rhythm. No murmur rub or gallop. Lungs: Right lower lobe inspiratory crackles in bases. No wheezing noted. Continues to require oxygen via nasal cannula Abdomen: Soft, bowel sounds normoactive. Nontender and nondistended. No abdominal bruit or thrill noted. No masses noted. Musculoskeletal: No fluid collection. Decreased range of motion is noted. Extremities: No clubbing, cyanosis noted. 2+ pitting edema, BLE, improved. Upper extremity pulses 2+. Lower extremity pulses 1+. Capillary refill less than 3 seconds. Skin: Dressing to right pastor dry and itact. No unusual lesions or rashes. No skin breakdown appreciated. Neuro: Awake, alert and oriented 3. Moves all extremities well without hemiparesis or paralysis. No essential tremor is appreciated. Result/EKG - Labs CBC & BMP: 12/11/16 01:01 12/12/16 04:23 Lab Results: I have reviewed the past 24 hour labs Labs: Laboratory Results - last 24 hr 12/11/16 12/11/16 12/11/16 11:33 16:17 20:32 Sodium Potassium Chloride Carbon Dioxide Anion Gap BUN Creatinine GFR Calculation BUN/Creatinine Ratio Glucose POC Glucose 269 H 227 H 245 H Calculated Osmolality Calcium Magnesium 12/12/16 12/12/16 04:23 07:09 Sodium 145 Potassium 4.0 Chloride 105 Carbon Dioxide 31 Anion Gap 13.0 BUN 26 H Creatinine 1.00 GFR Calculation 80 BUN/Creatinine Ratio 26.00 H Glucose 137 H POC Glucose 170 H Calculated Osmolality 294.7 Calcium 8.1 L Magnesium 2.1 - EKG EKG results: interpreted by ca EKG shows: sinus rhythm <Ramy Dudley - Last Filed: 12/12/16 17:45> Exam (Progress Note) - Constitutional Vitals: Period Temp Pulse Resp BP Sys/Cazares Pulse Ox Last 24 Hr 96.6 F-98.7 F 59-82 20-20 82-110/48-58 96-99 Result/EKG - Labs CBC & BMP: 12/11/16 01:01 12/12/16 04:23 Labs: Laboratory Results - last 24 hr 12/11/16 12/12/16 12/12/16 20:32 04:23 07:09 Sodium 145 Potassium 4.0 Chloride 105 Carbon Dioxide 31 Anion Gap 13.0 BUN 26 H Creatinine 1.00 GFR Calculation 80 BUN/Creatinine Ratio 26.00 H Glucose 137 H POC Glucose 245 H 170 H Calculated Osmolality 294.7 Calcium 8.1 L Magnesium 2.1 Digoxin 12/12/16 12/12/16 12/12/16 11:29 14:44 15:18 Sodium Potassium Chloride Carbon Dioxide Anion Gap BUN Creatinine GFR Calculation BUN/Creatinine Ratio Glucose POC Glucose 113 H 177 H Calculated Osmolality Calcium Magnesium Digoxin 0.20 L
--- NOTE | 2016-12-12 11:01 | Hospitalist Progress Note ---
Assessment and Plan (1) CHF exacerbation Status: Deleted Current Visit: Yes (2) Congestive heart failure Status: Acute Current Visit: Yes (3) Exertional dyspnea Status: Acute Current Visit: Yes (4) Cardiomyopathy Status: Chronic Current Visit: Yes (5) Chronic systolic (congestive) heart failure Status: Acute Assessment and plan: Plan for this patient 1 admit the patient to telemetry #2 IV diuresis #3 cardiology consult #4 2-D echo #5 home medications as appropriate #6 insulin sliding scale 12/11/16 continue with IV diuresis while in the hospital. Cardiology was can add back her lisinopril. Need to monitor kidney function. Need to follow up on her 2-D echo to see if her ejection fraction has deteriorated more. Need to evaluate for the pericardial effusion. 12/12/16 patient's pericardial effusion is trivial. She has an ejection fraction 15%. We'll continue with IV diuresis/hospital. Hopefully she is at her baseline and tomorrow she can be switched over to the medications and discharged home. Current Visit: No Hospitalist: Subjective Interval history: Patient seems to be feeling much better today. She reports that she is almost at her baseline. Exam - Constitutional Vitals: Period Temp Pulse Resp BP Sys/Cazares Pulse Ox Last 24 Hr 96.7 F-98.7 F 63-82 20-20 94-116/50-61 90-98 General appearance: morbidly obese - Head Head exam: Present: normal inspection - Eye Eye exam: Present: EOMI Pupils: Present: JUNIOR - ENT ENT exam: Present: normal exam - Neck Neck exam: Present: normal inspection - Respiratory Respiratory exam: Present: rales but better air movement today - Cardiovascular Cardiovascular exam: Present: regular rate and rhythm - GI/Abdominal GI/Abdominal exam: Present: normal bowel sounds - Extremities Exam Extremities exam: Present: edema - Back Exam Back exam: Present: normal inspection Results - Labs CBC & BMP: 12/11/16 01:01 12/12/16 04:23
[2016-12-12] MEDS: DIGOXIN 0.125 MG TABLET PO SCH (16:10)
--- NOTE | 2016-12-12 17:15 | Sleep Medicine Consult ---
Assessment and Plan (1) Obstructive sleep apnea syndrome Status: Chronic Assessment and plan: She will need to get her CPAP machine taken [facility] to be assessed and see if it can be serviced and put back into use. She may not qualify for a new CPAP device if it is not. This can be a difficult problem. She should continue on nocturnal O2 therapy and we will schedule her for follow-up in the sleep clinic after discharge for follow-up. Current Visit: No History of Present Illness Chief complaint: sleep apnea History of present illness: Ms. Cotto is a 61 year old female known to me from previous sleep evaluation and sleep consultation done in August 2016. She has a history of severe obstructive sleep apnea with a diagnostic AHI of 46.9. She was treated with CPAP therapy of 18 cm. She apparently did not keep follow-up appointments for compliance. She did keep her CPAP machine and by her report, used it. She states however that it quit working and when she took it to be checked, it was found to be infested with roaches. She has not taken her CPAP machine to [facility] for service. She has not used her CPAP machine since. She received her CPAP device in 2014 with diagnosis on 03/23/2015. She is now admitted with congestive heart failure and has a severe cardiomyopathy. She continues to have some symptoms of sleepiness, having an [place] sleepiness score of 13. She now sleeps with nocturnal O2 therapy. Home Medications Medication Instructions Recorded Confirmed Type Albuterol Sulfate [Ventolin HFA] 2 puff INH Q6HR PRN 05/03/16 12/10/16 History Cilostazol [Pletal] 50 mg PO BID 05/03/16 12/10/16 History Gabapentin 600 mg PO BID 05/03/16 12/10/16 History Insulin Glargine,Hum.rec.anlog 10 unit SUBCUT DAILY 05/03/16 12/10/16 History [Lantus SoloStar] Lisinopril 5 mg PO DAILY 05/03/16 12/10/16 History Pantoprazole Tab [Protonix Tab] 40 mg PO DAILY 05/03/16 12/10/16 History Zolpidem [Ambien] 5 mg PO BEDTIME PRN 05/03/16 12/10/16 History Budesonide/Formoterol 160-4.5 2 puff INH DAILY 05/04/16 12/10/16 History [Symbicort 160-4.5] Atorvastatin Calcium 10 mg PO DAILY 08/24/16 12/10/16 History Isosorbide Mononitrate [Isosorbide 30 mg PO QAM 08/24/16 12/10/16 History Mononitrate ER] PARoxetine [Paxil] 20 mg PO DAILY 08/24/16 12/10/16 History Carvedilol [Coreg] 6.25 mg PO BID #60 tablet 11/02/16 12/10/16 Rx Ferrous Sulfate Tab [Feosol 325 mg PO DAILY #30 tablet 11/02/16 12/10/16 Rx Original Tab] Furosemide Tab [Lasix Tab] 40 mg PO BID DIURETIC #60 tablet 11/02/16 12/10/16 Rx Aspirin Chew Tab 81 mg PO DAILY 12/10/16 12/10/16 History Digoxin Tab [Lanoxin Tab] 0.125 mg PO DAILY 12/10/16 12/10/16 History Levothyroxine Tab [Synthroid Tab] 125 mcg PO DAILY 12/10/16 12/10/16 History Sulfameth/Trimeth 800-160 Tab 1 tablet PO BID 12/10/16 12/10/16 History [Bactrim DS Tab] Allergies Allergy/AdvReac Type Severity Reaction Status Date / Time nitrofurantoin Allergy ITCHING Verified 08/21/16 12:38 [From Macrobid] Penicillins Allergy ITCHING Verified 08/21/16 12:38 Review of systems: Notable for lower extremity swelling. Exam (Pulmonay) H&P - Constitutional Vitals: Period Temp Pulse Resp BP Sys/Cazares Pulse Ox Last 24 Hr 96.6 F-98.7 F 59-82 20-20 82-110/48-58 96-99 Exam: She is alert and responsive in no acute distress. Pupils equal round reactive to light and accommodation. Extraocular movements intact. Oropharynx with a class III Mallampati exam. Neck is supple without adenopathy or thyromegaly. No supraclavicular adenopathy is noted. Chest was symmetrical breath sounds without focal wheezes, rhonchi, or rales. Cardiac exam reveals a regular rhythm without murmur or gallop. Abdomen obese nontender without palpable hepatosplenomegaly or mass. Extremities notable for pitting edema bilaterally. Neurologically, she is grossly intact. Medical,Surgical,& Family Hx - Medical History Cardio: History of: Cardiac Dysrhythmia, CHF, Hypertension, Pacemaker (ICD) No history of: CAD Neurology: No history of: Seizures Endocrine: History of: Diabetes Mellitus (IDDM) Respiratory: History of: COPD, Obstructive Sleep Apnea, Pneumonia Genitourinary: History of: Kidney Stones Gastrointestinal: History of: GERD - Surgical History Cardiac Surgeries: Sugical HX of: Cardiac Catheterization, Internal Defibrillator Thoracic Surgeries: Patient denies;: Lobectomy Neurologic Surgeries: Patient denies: Neurologic Surgery HEENT Surgeries: Patient denies: Eye Surgery, Tonsilectomy & Adenoidectomy Abdominal Surgeries: Surgical HX of: Colonoscopy Reproductive Surgeries: Surgical HX of;: Gynecologic Surgery, Hysterectomy Orthopedic Surgeries: Surgical HX of;: Orthopedic Surgery - Family History Family History: Reports;: Family Cancer, Family Diabetes, Family Heart Disease, Family Hypertension - Social History Smoking Status: Never smoker Frequency of Alcohol Use: None Type of Drug Use: None Results - Labs CBC & BMP: 12/11/16 01:01 12/12/16 04:23 Lab Results: I have reviewed the past 24 hour labs
[2016-12-12 18:53] LABS: Apearance,Urine Slightly Hazy (Clear); Bilirubin,Urine Negative (Negative); Blood, Urine Small mg/dL (Negative); Glucose,Urine (UA) Negative (Negative); Ketones,Urine Negative (Negative); Mucus,Urine Occasional /LPF (Occasional); Nitrite,Urine Negative (Negative); Protein,Urine Negative; RBC,Urine 6 /HPF (0-4); Urine Color Yellow (Yellow); Urine Specific Gravity 1.016 (1.001-1.035); WBC,Urine 12 /HPF (0-6)
[2016-12-12] MEDS: rOPINIRole 0.25 MG TABLET PO SCH (20:30)
[2016-12-12] MEDS: ENOXAPARIN 40 MG/0.4 ML SYRINGE SUBCUT SCH ×2 (20:31→22:21)
[2016-12-13 06:28] LABS: Calcium 7.7 MG/DL (8.5-10.1); Osmolality,Calculated 297.4 MOS/KG (273-304); Potassium 4.2 MMOL/L (3.5-5.1)
[2016-12-13] MEDS: LEVOTHYROXINE 125 MCG TABLET PO SCH (06:47)
[2016-12-13] MEDS: INSULIN REGULAR 100 UNIT/ML SUBCUT SCH ×2 (08:58→13:18)
[2016-12-13] MEDS: ISOSORBIDE MONONITRATE 30 MG TABLET PO SCH (09:59)
[2016-12-13] MEDS: FERROUS SULFATE 325 MG TABLET PO SCH (09:59)
[2016-12-13] MEDS: GABAPENTIN 600 MG TABLET PO SCH (09:59)
[2016-12-13] MEDS: SACUBITRIL/VALSARTAN 49-51 MG TABLET PO SCH (09:59)
[2016-12-13] MEDS: PARoxetine 20 MG TABLET PO SCH (10:00)
[2016-12-13] MEDS: CARVEDILOL 6.25 MG TABLET PO SCH (10:00)
[2016-12-13] MEDS: BUDESONIDE/FORMOTEROL 160-4.5 INHALER 6 GM INH SCH (10:00)
[2016-12-13] MEDS: FUROSEMIDE 40 MG/4 ML VIAL IV SCH (10:00)
[2016-12-13] MEDS: ATORVASTATIN 10 MG TABLET PO SCH (10:00)
[2016-12-13] MEDS: SPIRONOLACTONE 50 MG TABLET PO SCH (10:00)
[2016-12-13] MEDS: SULFAMETHOX/TRIMETHOPRIM 800-160 MG TABLET PO SCH (10:00)
[2016-12-13] MEDS: ASPIRIN CHEW 81 MG TABLET PO SCH (10:00)
--- NOTE | 2016-12-13 12:52 | Sleep Medicine Progress Note ---
Assessment and Plan (1) Obstructive sleep apnea syndrome Status: Chronic Assessment and plan: Patient will have her CPAP device check by [facility] and can resume use of it if functional. Current Visit: No Sleep Medicine Subjective Interval history: Patient doing okay. She reports no new issues or problems. She is sleeping with oxygen at night. She does state that her daughter is to poultry picker her CPAP machine and take it to [facility] to see if it is serviceable. If so, she just needs to restart her on CPAP device. Exam (Progress Note) - Constitutional Vitals: Period Temp Pulse Resp BP Sys/Cazares Pulse Ox Last 24 Hr 96.6 F-98.6 F 59-77 18-20 88-108/50-59 90-99 Results - Labs CBC & BMP: 12/11/16 01:01 12/13/16 05:38 Lab Results: I have reviewed the past 24 hour labs
[2016-12-13] MEDS: DIGOXIN 0.125 MG TABLET PO SCH (13:18)
--- NOTE | 2016-12-13 15:05 | Discharge Summary ---
Hospital Course - Hospital Course Hospital Course: Ms. Cotto is a 61 year old female with past medical history significant for congestive heart failure, COPD and diabetes who was in her normal state of health till the past couple days. Patient is short of breath at rest for the most part but it seem like her shortness of breath at steadily increased over the past 2 days. Home health checked on the patient today and I talked to Dr. Ferrell. She recommended the patient be taken to the emergency room for further evaluation. Patient found to have an elevated BNP and increasing pericardial effusion and a mild pleural effusion I was consulted to admit her. Consult to cardiology with assistance for this patient. Patient has a severely reduced ejection fraction with an EF approximately 15%. We ID diuresed her and got her back to her baseline. Cardiology followed along with us while she was here. Patient's usual building maintenance engineer is Dr. Batres. She has an appointment with him within 2 weeks. Patient is ready for discharge at this time Diagnosis - Discharge Diagnosis (1) CHF exacerbation Status: Deleted (2) Congestive heart failure Status: Acute (3) Exertional dyspnea Status: Acute (4) Cardiomyopathy Status: Chronic (5) Chronic systolic (congestive) heart failure Status: Acute Specialty Discharge - Follow Up or Referrals Follow up with: Hollie Velasquez MD [Physician] - 01/14/17 9:45 am (bring cpap) Discharge Plan - Discharge Data Disposition: Disch To Home/Self Care Condition at Discharge: Stable Discharge Diet: advance to your usual diet Activity: resume usual activities as tolerated - Discharge Medications New Sacubitril/Valsartan [Entresto 49 mg-51 mg Tablet] 0.5 tablet PO BID #60 tablet Spironolactone [Aldactone] 50 mg PO DAILY #30 tablet Continue Zolpidem [Ambien] 5 mg PO BEDTIME PRN PRN Reason: Sleep Pantoprazole Tab [Protonix Tab] 40 mg PO DAILY Insulin Glargine,Hum.rec.anlog [Lantus SoloStar] 10 unit SUBCUT DAILY Gabapentin 600 mg PO BID Albuterol Sulfate [Ventolin HFA] 2 puff INH Q6HR PRN PRN Reason: Dyspnea Budesonide/Formoterol 160-4.5 [Symbicort 160-4.5] 2 puff INH DAILY Atorvastatin Calcium 10 mg PO DAILY Isosorbide Mononitrate [Isosorbide Mononitrate ER] 30 mg PO QAM PARoxetine [Paxil] 20 mg PO DAILY Carvedilol [Coreg] 6.25 mg PO BID #60 tablet Aspirin Chew Tab 81 mg PO DAILY Levothyroxine Tab [Synthroid Tab] 125 mcg PO DAILY Ferrous Sulfate Tab [Feosol Original Tab] 325 mg PO DAILY #30 tablet Digoxin Tab [Lanoxin Tab] 0.125 mg PO DAILY Sulfameth/Trimeth 800-160 Tab [Bactrim DS Tab] 1 tablet PO BID Changed Furosemide Tab [Lasix Tab] 80 mg PO BID DIURETIC #120 tablet Discontinued Lisinopril 5 mg PO DAILY Cilostazol [Pletal] 50 mg PO BID - Follow Up or Referral Follow Up: Hollie Velasquez MD [Physician] - 01/14/17 9:45 am (bring cpap) - Forms/Instructions Exam - Constitutional Vitals: Period Temp Pulse Resp BP Sys/Cazares Pulse Ox Last 24 Hr 96.6 F-98.6 F 59-77 18-20 88-108/50-59 90-99 General appearance: morbidly obese - Head Head exam: Present: normal inspection - Eye Eye exam: Present: EOMI Pupils: Present: JUNIOR - ENT ENT exam: Present: normal exam - Neck Neck exam: Present: normal inspection - Respiratory Respiratory exam: Present: rales but better air movement today - Cardiovascular Cardiovascular exam: Present: regular rate and rhythm - GI/Abdominal GI/Abdominal exam: Present: normal bowel sounds - Extremities Exam Extremities exam: Present: edema - Back Exam Back exam: Present: normal inspectio Discharge Results Procedures and tests throughout hospitalization: Pending Orders 12/12/16 Urine Culture Routine Labs on day of discharge: Labs from last 24 hours 12/13/16 12/13/16 12/13/16 11:26 07:52 05:38 Sodium Potassium Chloride Carbon Dioxide Anion Gap BUN Creatinine GFR Calculation BUN/Creatinine Ratio Glucose POC Glucose 167 H 135 H Calculated Osmolality Calcium B-Natriuretic Peptide 733 H Urine Color Urine Appearance Urine pH Ur Specific [place] Urine Protein Urine Glucose (UA) Urine Ketones Urine Blood Urine Nitrate Urine Bilirubin Urine Urobilinogen Urine Leukocytes Urine RBC Urine WBC Urine Mucus Ur Culture Indicated? Digoxin 12/13/16 12/12/16 12/12/16 05:38 Unknown 20:09 Sodium 147 H Potassium 4.2 Chloride 108 H Carbon Dioxide 32 Anion Gap 11.2 BUN 23 H Creatinine 1.00 GFR Calculation 79 BUN/Creatinine Ratio 23.00 H Glucose 129 H POC Glucose 213 H Calculated Osmolality 297.4 Calcium 7.7 L B-Natriuretic Peptide Urine Color Yellow Urine Appearance Slightly hazy Urine pH 7.0 Ur Specific [place] 1.016 Urine Protein Negative Urine Glucose (UA) Negative Urine Ketones Negative Urine Blood Small Urine Nitrate Negative Urine Bilirubin Negative Urine Urobilinogen 4.0 H Urine Leukocytes Moderate H Urine RBC 6 Urine WBC 12 Urine Mucus Occasional Ur Culture Indicated? Results to follow Digoxin 12/12/16 12/12/16 15:18 14:44 Sodium Potassium Chloride Carbon Dioxide Anion Gap BUN Creatinine GFR Calculation BUN/Creatinine Ratio Glucose POC Glucose 177 H Calculated Osmolality Calcium B-Natriuretic Peptide Urine Color Urine Appearance Urine pH Ur Specific [place] Urine Protein Urine Glucose (UA) Urine Ketones Urine Blood Urine Nitrate Urine Bilirubin Urine Urobilinogen Urine Leukocytes Urine RBC Urine WBC Urine Mucus Ur Culture Indicated? Digoxin 0.20 L Preliminary micro results at discharge 12/12/16 Unknown Urine Culture - Preliminary Urine,Clean Catch No Growth at 12 hours. DS: Provider Date of admission: 12/10/16 21:34 Primary care physician: . No PCP Attending physician on admission: Fili Jerez MD Consults: 12/10/16 21:39 Consult to Wound Care - [place] [CONS] Routine Reason for Wound Care: Wound Care Management 12/10/16 21:40 Consult to Physician [CONS] Routine Comment: Consulting Provider: Cardiology - [facility] Consult to Specialist Group: Cardiology When should Consulting Provider be notified: In am Person Notified: MENDY Date Notified: 12/11/16 Time Notified: 07:40 12/11/16 22:32 Consult to Sleep Center [CONS] Routine Reason for Sleep Center: Technologist Assist Consult Comment: URMILA; severe CMP repeat admis "cpap broke" Discharging clinician: Fili Jerez MD
--- NOTE | 2016-12-13 15:11 | Cardiology Progress Note ---
<Dee Dee Torres E - Last Filed: 12/13/16 15:08> Assessment and Plan - Time spent with patient Time spent with patient: Less than 30 minutes (1) Acute on chronic systolic CHF (congestive heart failure) Status: Acute Assessment and plan: Acute on chronic congestive heart failure secondary to severely decreased LVEF of 10-15%. NYHA Class II-III. today. Ready for discharge. Current Visit: Yes (2) NICM (nonischemic cardiomyopathy) Status: Chronic Assessment and plan: Continue current plan of care. Current Visit: Yes (3) Diabetes Status: Chronic Current Visit: Yes (4) Biventricular ICD (implantable cardioverter-defibrillator) in place Status: Chronic Assessment and plan: Recently interrogated in October 2016. Current Visit: Yes (5) Dyslipidemia Status: Chronic Assessment and plan: Continue current plan of care. Current Visit: Yes (6) Hypothyroidism Status: Chronic Assessment and plan: Continue current plan of care. Current Visit: Yes (7) COPD (chronic obstructive pulmonary disease) Status: Chronic Current Visit: Yes (8) Thrombocytopenia Status: Chronic Assessment and plan: We'll defer further workup and management of this to attending. Current Visit: Yes (9) Hypertension Status: Chronic Assessment and plan: Usually well controlled. Will adjust medications accordingly as needed during the hospital stay. She is tolerating beta-blockade without problems. Home medications include lisinopril. I am going to restart this this morning. Current Visit: Yes (10) Obstructive sleep apnea syndrome Status: Chronic Assessment and plan: Sleep Medicine fork lift technician consulted Current Visit: No (11) Pericardial effusion Status: Acute Assessment and plan: Echocardiogram has been ordered. No evidence of tamponade by physical exam and we'll await final interpretation of echo. Current Visit: Yes (12) Elevated troponin Status: Chronic Assessment and plan: Troponin is mildly elevated and trending down. In view of other hospitalizations, last time she was admitted (October 2016) cyst troponin was mildly elevated at that time. She has a history of nonischemic cardiomyopathy though heart catheterization is approximate 2 years ago. This is NOT NSTEMI. Current Visit: Yes Cardiology - PN: Subj Interval history: Ms. Cotto is a 61 year old female routinely followed by Dr. Morales. Risk factors include: hypertension, dyslipidemia, diabetes, obesity and sedentary lifestyle. History of known CHF, COPD, nonischemic cardiomyopathy, URMILA. She is status post by the ICD implantation. She was last seen in Dr. Morales's office November 20, 2016 after being hospitalized to [facility] for CHF. Diagnosed with nonischemic cardiomyopathy in 2014, LVEF was 25% . Dr. Shaikh performed cardiac catheterization 2014. Patient was admitted to the emergency department [facility] Saturday with complaints of worsened shortness of breath and edema. She was diagnosed with acute on chronic CHF secondary to severely reduced LVEF (10%- 15%), NYHA Classication III-IV on admission. CT Chest Saturday revealed an enlarged pericardial effusion and no PE. However, echo found only tiny pericardial effusion. 1. Significantly overweight 61-year-old WF with severe nonischemic cardiomyopathy status post biventricular ICD placement in April 2016, with multiple admissions for acute on chronic systolic heart failure including last month. Continues to improve overnight. Still orthopneic but improved. 2. Added spironolactone 50 mg every morning, and she has responded well. Lost another 2 kg overnight. Breathing improved. Edema improved. 3. Discontinued Pletal since this is contraindicated in advanced heart failure patients 4. Low dose Entresto has been initiated and she is tolerating well. 5. URMILA, evalauted by Dr. Velasquez. See recommendations. 6. ICD/pacemaker was recently interrogated last month 8. Ejection fraction of 10-15% per echo during this hospitalization, unchanged from last month; there is only a tiny pericardial effusion 9. Pulmonary hypertension is likely related to left heart failure but also may be related to URMILA 10. Being considered for discharge today. Will arrange follow-up appointment with Dr. Morales in 1-2 weeks. Exam (Progress Note) - Constitutional Vitals: Period Temp Pulse Resp BP Sys/Cazares Pulse Ox Last 24 Hr 96.6 F-98.6 F 59-77 18-20 88-108/50-59 90-99 Exam: General: Appears well with no apparent distress. Pleasant and cooperative. Appears comfortable. HEENT: PERRL, normocephalic, atraumatic. Mucous membranes moist. No jaundice noted. Conjunctiva moist and clear, sclerae anicteric Neck: No JVD/HJR, no thyromegaly or lymphadenopathy noted. No carotid bruit appreciated Cardiac: Regular rate and rhythm. No murmur rub or gallop. Lungs: Relatively clear to auscultation. No wheezing noted. Intermittently wearing oxygen via nasal cannula Abdomen: Soft, bowel sounds normoactive. Nontender and nondistended. No abdominal bruit or thrill noted. No masses noted. Musculoskeletal: No fluid collection. Decreased range of motion is noted. Extremities: No clubbing, cyanosis noted. 1+ pitting edema, BLE, improved. Upper extremity pulses 2+. Lower extremity pulses 1+. Capillary refill less than 3 seconds. Skin: Dressing to right pastor dry and itact. No unusual lesions or rashes. No skin breakdown appreciated. Neuro: Awake, alert and oriented 3. Moves all extremities well without hemiparesis or paralysis. No essential tremor is appreciated. Result/EKG - Labs CBC & BMP: 12/11/16 01:01 12/13/16 05:38 Lab Results: I have reviewed the past 24 hour labs Labs: Laboratory Results - last 24 hr 12/12/16 12/12/16 12/12/16 14:44 15:18 20:09 Sodium Potassium Chloride Carbon Dioxide Anion Gap BUN Creatinine GFR Calculation BUN/Creatinine Ratio Glucose POC Glucose 177 H 213 H Calculated Osmolality Calcium B-Natriuretic Peptide Urine Color Urine Appearance Urine pH Ur Specific Brewster Urine Protein Urine Glucose (UA) Urine Ketones Urine Blood Urine Nitrate Urine Bilirubin Urine Urobilinogen Urine Leukocytes Urine RBC Urine WBC Urine Mucus Ur Culture Indicated? Digoxin 0.20 L 12/12/16 12/13/16 12/13/16 Unknown 05:38 05:38 Sodium 147 H Potassium 4.2 Chloride 108 H Carbon Dioxide 32 Anion Gap 11.2 BUN 23 H Creatinine 1.00 GFR Calculation 79 BUN/Creatinine Ratio 23.00 H Glucose 129 H POC Glucose Calculated Osmolality 297.4 Calcium 7.7 L B-Natriuretic Peptide 733 H Urine Color Yellow Urine Appearance Slightly hazy Urine pH 7.0 Ur Specific Brewster 1.016 Urine Protein Negative Urine Glucose (UA) Negative Urine Ketones Negative Urine Blood Small Urine Nitrate Negative Urine Bilirubin Negative Urine Urobilinogen 4.0 H Urine Leukocytes Moderate H Urine RBC 6 Urine WBC 12 Urine Mucus Occasional Ur Culture Indicated? Results to follow Digoxin 12/13/16 12/13/16 07:52 11:26 Sodium Potassium Chloride Carbon Dioxide Anion Gap BUN Creatinine GFR Calculation BUN/Creatinine Ratio Glucose POC Glucose 135 H 167 H Calculated Osmolality Calcium B-Natriuretic Peptide Urine Color Urine Appearance Urine pH Ur Specific Brewster Urine Protein Urine Glucose (UA) Urine Ketones Urine Blood Urine Nitrate Urine Bilirubin Urine Urobilinogen Urine Leukocytes Urine RBC Urine WBC Urine Mucus Ur Culture Indicated? Digoxin - Diagnostic Findings Procedure: Chest x-ray: report reviewed by me - EKG EKG results: interpreted by me EKG shows: sinus rhythm Specialty Discharge - Follow Up or Referrals Follow up with: Fernandez Morales MD [Physician] - 12/25/16 2:50 pm Hollie Velasquez MD [Physician] - 01/14/17 9:45 am (bring cpap) <Ramy Dudley - Last Filed: 12/13/16 15:34> Exam (Progress Note) - Constitutional Vitals: Period Temp Pulse Resp BP Sys/Cazares Pulse Ox Last 24 Hr 96.6 F-98.6 F 59-77 18-20 88-108/50-59 90-99 Result/EKG - Labs CBC & BMP: 12/11/16 01:01 12/13/16 05:38 Labs: Laboratory Results - last 24 hr 12/12/16 12/12/16 12/12/16 14:44 15:18 20:09 Sodium Potassium Chloride Carbon Dioxide Anion Gap BUN Creatinine GFR Calculation BUN/Creatinine Ratio Glucose POC Glucose 177 H 213 H Calculated Osmolality Calcium B-Natriuretic Peptide Urine Color Urine Appearance Urine pH Ur Specific Brewster Urine Protein Urine Glucose (UA) Urine Ketones Urine Blood Urine Nitrate Urine Bilirubin Urine Urobilinogen Urine Leukocytes Urine RBC Urine WBC Urine Mucus Ur Culture Indicated? Digoxin 0.20 L 12/12/16 12/13/16 12/13/16 Unknown 05:38 05:38 Sodium 147 H Potassium 4.2 Chloride 108 H Carbon Dioxide 32 Anion Gap 11.2 BUN 23 H Creatinine 1.00 GFR Calculation 79 BUN/Creatinine Ratio 23.00 H Glucose 129 H POC Glucose Calculated Osmolality 297.4 Calcium 7.7 L B-Natriuretic Peptide 733 H Urine Color Yellow Urine Appearance Slightly hazy Urine pH 7.0 Ur Specific Brewster 1.016 Urine Protein Negative Urine Glucose (UA) Negative Urine Ketones Negative Urine Blood Small Urine Nitrate Negative Urine Bilirubin Negative Urine Urobilinogen 4.0 H Urine Leukocytes Moderate H Urine RBC 6 Urine WBC 12 Urine Mucus Occasional Ur Culture Indicated? Results to follow Digoxin 12/13/16 12/13/16 07:52 11:26 Sodium Potassium Chloride Carbon Dioxide Anion Gap BUN Creatinine GFR Calculation BUN/Creatinine Ratio Glucose POC Glucose 135 H 167 H Calculated Osmolality Calcium B-Natriuretic Peptide Urine Color Urine Appearance Urine pH Ur Specific Brewster Urine Protein Urine Glucose (UA) Urine Ketones Urine Blood Urine Nitrate Urine Bilirubin Urine Urobilinogen Urine Leukocytes Urine RBC Urine WBC Urine Mucus Ur Culture Indicated? Digoxin
[2016-12-13 15:53] VITALS: BP 108/53
[2016-12-13] MEDS ORDERED: FUROSEMIDE 80 MG TABLET PO SCH (16:00)
== END 2016-12-13 17:01 | disposition home or self-care (01) | DRG 292 ==
LOC: N.ED 16:05 → N.EDINP 21:34 → N.TELEN 22:24
PROVIDERS: ADMIT Internal Medicine; ATTEND Internal Medicine

== ENCOUNTER 2017-07-12 10:44 | Inpatient (IN) ==
[2017-07-12] MEDS ORDERED: MAGNESIUM SULF RIDER 2 GM in PREMIX 1 EACH IV PRN (10:46)
[2017-07-12] MEDS ORDERED: MAGNESIUM SULF RIDER 4 GM in PREMIX 1 EACH IV PRN (10:46)
[2017-07-12] MEDS ORDERED: ONDANSETRON 4 MG/2 ML VIAL IV PRN (10:46)
[2017-07-12] MEDS ORDERED: ZALEPLON 5 MG CAPSULE PO PRN (10:46)
[2017-07-12] MEDS ORDERED: ACETAMINOPHEN 325 MG TABLET PO PRN (10:46)
[2017-07-12] MEDS ORDERED: DOCUSATE SODIUM 100 MG CAPSULE PO PRN (10:46)
[2017-07-12] MEDS ORDERED: POTASSIUM CHLORIDE RIDER 10 MEQ in PREMIX 1 EACH IV PRN (10:46)
[2017-07-12 14:12] LABS: Basophils % 0.9 % (0.0-0.8); Eosinophils # 0.2 10*3/uL (0.0-0.87); Eosinophils % 3.5 % (0.00-10.9); Hematocrit 38.5 VOL% (35.7-47.0); Hemoglobin 12.6 GM/DL (12.0-16.0); Immature Granulocytes % 0.2 %; Immature Granulocytes Absolute 0.01 #; Lymphocytes # 1.2 10*3/uL (1.4-4.0); Lymphocytes % 28.2 % (21.3-54.2); Mean Corpuscular HGB Conc 32.7 GM/DL (32-36); Mean Corpuscular Hemoglobin 31 PG (27-34); Mean Corpuscular Volume 94.8 FL (87-102); Mean Platelet Volume 10.6 FL (9.6-12.0); Monocytes # 0.5 10*3/uL (0.11-0.8); Monocytes % 11.4 % (1.7-12.7); Neutrophils # 2.4 10*3/uL (1.4-7.4); Neutrophils % 55.8 % (38.7-73.9); Platelet Count 96 T/CUMM (130-400); Red Blood Count 4.06 MC/CUMM (3.8-5.5); Red Cell Distribution Width 13.6 % (9.3-17.3); White Blood Count 4.3 T/CUMM (4-12)
[2017-07-12 14:51] LABS: Troponin I Only 0.024 NG/ML (0.00-0.045)
[2017-07-12 15:12] LABS: Albumin 3.8 G/DL (3.4-5.0); Bilirubin,Total 0.7 MG/DL (0.2-1.0); Calcium 8.8 MG/DL (8.5-10.1); Magnesium 2.2 MG/DL (1.8-2.4); Osmolality,Calculated 283.1 MOS/KG (273-304); Potassium 4.2 MMOL/L (3.5-5.1); Total Protein 6.8 G/DL (6.4-8.3)
[2017-07-12] MEDS ORDERED: Tiotropium Br/Olodaterol Hcl [Stiolto Respimat Inhal Spray] 4 GM INH PRN (15:23)
--- NOTE | 2017-07-12 15:23 | Event Note ---
Dr. Morales called Dr. Jacinto this morning regarding Ms. Cotto's need for admission. She is admitted to the hospital for inpatient management of CHF exacerbation and diuresis with IV lasix. She will tentatively be planned for RHC after her volume overload improves. She has been started on 80mg IV Lasix BID. We will monitor her labs and vital signs and resume her home medications as she is able to tolerate. Dr. Jacinto will assume care of Ms. Cotto tomorrow and follow her throughout the weekend. Ms. Cotto voices understanding of the plan of care and denies any needs at the present time. She is resting comfortably in her room in no acute distress. We will continue to monitor.
[2017-07-12] MEDS ORDERED: ZOLPIDEM 5 MG TABLET PO PRN (15:33)
[2017-07-12 15:54] LABS: Platelet Estimate Decreased; Poikilocytosis Slight; Tear Drop Cells Few
[2017-07-12] MEDS: FUROSEMIDE 40 MG/4 ML VIAL IV SCH (16:15)
--- NOTE | 2017-07-12 16:54 | XRay Report ---
XR chest 2V Indication: Shortness of breath. Chest 2 views: Comparison 12/10/2016. Although mild cardiomegaly is present, it represents a significant improvement from the previous exam. Thoracic aortic tortuosity noted. Obscuration of the left hemidiaphragm noted and appears to be secondary to elevated left hemidiaphragm and atelectasis or scarring. Cannot exclude left basilar pneumonia however. Right lung is clear. Impression: Left basilar opacification, likely from elevated left hemidiaphragm and atelectasis. Cannot exclude left basilar pneumonia. Decreased severity of cardiomegaly since November. PROCEDURE INTERPRETED AT [facility] DEPARTMENT OF RADIOLOGY Final Report Signed by: Fili Mccracken M.D.
[2017-07-12] MEDS: clonazePAM 0.5 MG TABLET PO SCH (20:39)
[2017-07-12] MEDS: GABAPENTIN 600 MG TABLET PO SCH (20:40)
[2017-07-12] MEDS: CARVEDILOL 6.25 MG TABLET PO SCH (20:40)
[2017-07-12] MEDS: POTASSIUM GLUCONATE 500 MG TABLET PO SCH (20:41)
[2017-07-13 05:00] LABS: Calcium 8.3 MG/DL (8.5-10.1); Magnesium 2.5 MG/DL (1.8-2.4); Potassium 3.7 MMOL/L (3.5-5.1)
[2017-07-13] MEDS ORDERED: LEVOTHYROXINE 125 MCG TABLET PO SCH (07:30)
[2017-07-13] MEDS: SPIRONOLACTONE 50 MG TABLET PO SCH (09:24)
[2017-07-13] MEDS: PARoxetine 20 MG TABLET PO SCH (09:24)
[2017-07-13] MEDS: GABAPENTIN 600 MG TABLET PO SCH ×2 (09:24→21:31)
[2017-07-13] MEDS: DIGOXIN 0.125 MG TABLET PO SCH (09:24)
[2017-07-13] MEDS: SACUBITRIL/VALSARTAN 49-51 MG TABLET PO SCH (09:24)
[2017-07-13] MEDS: PANTOPRAZOLE 40 MG TABLET PO SCH (09:24)
[2017-07-13] MEDS: ASPIRIN CHEW 81 MG TABLET PO SCH (09:24)
[2017-07-13] MEDS: ISOSORBIDE MONONITRATE 30 MG TABLET PO SCH (09:24)
[2017-07-13] MEDS: CARVEDILOL 6.25 MG TABLET PO SCH ×2 (09:25→18:03)
[2017-07-13] MEDS: FUROSEMIDE 40 MG/4 ML VIAL IV SCH ×2 (09:25→16:31)
[2017-07-13] MEDS: BUDESONIDE/FORMOTEROL 160-4.5 INHALER 6 GM INH SCH (09:33)
[2017-07-13] MEDS: INSULIN GLARGINE 100 UNIT/ML SUBCUT SCH (09:36)
--- NOTE | 2017-07-13 13:23 | Cardiology Progress Note ---
Assessment and Plan - Time spent with patient Time spent with patient: Greater than 30 minutes (1) Chronic combined systolic and diastolic heart failure Status: Acute Assessment and plan: Her shortness of breath better with diuresis She is on good evidence-based medication for systolic heart failure May be some diastolic heart failure from her untreated sleep apnea, contributing to her symptoms I encouraged encouraged to sleep propped up It is possible untreated sleep apnea is causing her pulmonary hypertension Her TSH is elevated, suggesting inadequate repletion of her hypothyroidism We will increase the levothyroxine 175 mcg daily Recheck CMP every morning 3 Right heart cath on Saturday Current Visit: Yes (2) NICM (nonischemic cardiomyopathy) Status: Chronic Current Visit: No (3) Cellulitis Status: Acute Current Visit: No (4) Chronic systolic (congestive) heart failure Status: Acute Current Visit: No (5) Congestive heart failure Status: Acute Current Visit: No (6) Exertional dyspnea Status: Acute Current Visit: No (7) Intravascular volume depletion Status: Acute Current Visit: No (8) Biventricular ICD (implantable cardioverter-defibrillator) in place Status: Chronic Current Visit: No (9) CHF (congestive heart failure) Status: Chronic Current Visit: No (10) COPD (chronic obstructive pulmonary disease) Status: Chronic Current Visit: No (11) Cardiomyopathy Status: Chronic Current Visit: No (12) Diabetes Status: Chronic Current Visit: No (13) Dyslipidemia Status: Chronic Current Visit: No (14) Elevated troponin Status: Chronic Current Visit: No (15) Hypertension Status: Chronic Current Visit: No (16) Hypothyroid Status: Chronic Current Visit: No (17) Obstructive sleep apnea syndrome Status: Chronic Current Visit: No Cardiology - PN: Subj Interval history: Less shortness of breath. No chest pain Exam (Progress Note) - Constitutional Vitals: Period Temp Pulse Resp BP Sys/Cazares Pulse Ox Last 24 Hr 96.9 F-98.0 F 60-62 18-18 94-141/51-81 92-99 Exam: HEENT: Pupils equal, reactive to light and accommodation Neck: NoJVD or bruit Lungs clear to auscultation Heart: Regular rhythm rate with normal S1 and S2. Apical S4 Abdomen: No hepatosplenomegaly Spine/extremities: No clubbing, cyanosis, or edema Neuro: Nonfocal Psych: No depression or anxiety Result/EKG - Labs CBC & BMP: 07/12/17 13:50 07/13/17 04:23 Lab Results: I have reviewed the past 24 hour labs Labs: Laboratory Results - last 24 hr 07/12/17 07/12/17 07/12/17 13:50 13:50 13:50 WBC 4.3 RBC 4.06 Hgb 12.6 Hct 38.5 MCV 94.8 MCH 31 MCHC 32.7 RDW 13.6 Plt Count 96 L MPV 10.6 Neut % (Auto) 55.8 Lymph % (Auto) 28.2 Valley % (Auto) 11.4 Eos % (Auto) 3.5 Baso % (Auto) 0.9 H Neut # (Auto) 2.4 Lymph # (Auto) 1.2 L Valley # (Auto) 0.5 Eos # (Auto) 0.2 Baso # (Auto) 0.0 Immature Gran % 0.2 Nucleated RBC % 0.0 Immature Gran # 0.01 Nucleated RBCs # 0.00 Platelet Estimate Decreased Immature Plt Fraction 2.2 Poikilocytosis Slight Tear Drop Cells Few Sodium 142 Potassium 4.2 Chloride 109 H Carbon Dioxide 27 Anion Gap 10.2 BUN 16 Creatinine 1.00 GFR Calculation 78 BUN/Creatinine Ratio 16.00 Glucose 100 POC Glucose Calculated Osmolality 283.1 Calcium 8.8 Magnesium 2.2 Total Bilirubin 0.70 AST 18 ALT 19 Alkaline Phosphatase 76 Total Creatine Kinase 136 CK-MB (CK-2) 1.7 Troponin I 0.024 B-Natriuretic Peptide Total Protein 6.8 Albumin 3.8 Globulin 3.0 Albumin/Globulin Ratio 1.2 TSH 3rd Generation 24.000 H Digoxin 07/12/17 07/13/17 07/13/17 13:50 04:23 04:23 WBC RBC Hgb Hct MCV MCH MCHC RDW Plt Count MPV Neut % (Auto) Lymph % (Auto) Valley % (Auto) Eos % (Auto) Baso % (Auto) Neut # (Auto) Lymph # (Auto) Valley # (Auto) Eos # (Auto) Baso # (Auto) Immature Gran % Nucleated RBC % Immature Gran # Nucleated RBCs # Platelet Estimate Immature Plt Fraction Poikilocytosis Tear Drop Cells Sodium 143 Potassium 3.7 Chloride 108 H Carbon Dioxide 27 Anion Gap 11.7 BUN 20 H Creatinine 1.00 GFR Calculation 78 BUN/Creatinine Ratio 20.00 Glucose 114 H POC Glucose Calculated Osmolality 288.0 Calcium 8.3 L Magnesium 2.5 H Total Bilirubin AST ALT Alkaline Phosphatase Total Creatine Kinase CK-MB (CK-2) Troponin I B-Natriuretic Peptide 255 H Total Protein Albumin Globulin Albumin/Globulin Ratio TSH 3rd Generation Digoxin 0.70 L 07/13/17 09:35 WBC RBC Hgb Hct MCV MCH MCHC RDW Plt Count MPV Neut % (Auto) Lymph % (Auto) Valley % (Auto) Eos % (Auto) Baso % (Auto) Neut # (Auto) Lymph # (Auto) Valley # (Auto) Eos # (Auto) Baso # (Auto) Immature Gran % Nucleated RBC % Immature Gran # Nucleated RBCs # Platelet Estimate Immature Plt Fraction Poikilocytosis Tear Drop Cells Sodium Potassium Chloride Carbon Dioxide Anion Gap BUN Creatinine GFR Calculation BUN/Creatinine Ratio Glucose POC Glucose 112 H Calculated Osmolality Calcium Magnesium Total Bilirubin AST ALT Alkaline Phosphatase Total Creatine Kinase CK-MB (CK-2) Troponin I B-Natriuretic Peptide Total Protein Albumin Globulin Albumin/Globulin Ratio TSH 3rd Generation Digoxin - EKG EKG results: interpreted by me Quality Measures - VTE Contraindication to Pharmacological VTE Prophylaxis: High Risk of Bleeding
[2017-07-13] MEDS: POTASSIUM GLUCONATE 500 MG TABLET PO SCH (21:31)
[2017-07-13] MEDS: clonazePAM 0.5 MG TABLET PO SCH (21:31)
[2017-07-14 06:22] LABS: Calcium 8.5 MG/DL (8.5-10.1); Magnesium 2.4 MG/DL (1.8-2.4); Osmolality,Calculated 286.3 MOS/KG (273-304)
[2017-07-14 06:23] LABS: Albumin 3.6 G/DL (3.4-5.0); Calcium 8.5 MG/DL (8.5-10.1); Osmolality,Calculated 286.3 MOS/KG (273-304); Total Protein 6.5 G/DL (6.4-8.3)
[2017-07-14] MEDS ORDERED: LEVOTHYROXINE 150 MCG TABLET PO SCH (07:00)
[2017-07-14] MEDS: SPIRONOLACTONE 50 MG TABLET PO SCH (09:28)
[2017-07-14] MEDS: SACUBITRIL/VALSARTAN 49-51 MG TABLET PO SCH (09:28)
[2017-07-14] MEDS: GABAPENTIN 600 MG TABLET PO SCH ×2 (09:28→21:46)
[2017-07-14] MEDS: DIGOXIN 0.125 MG TABLET PO SCH (09:28)
[2017-07-14] MEDS: PANTOPRAZOLE 40 MG TABLET PO SCH (09:28)
[2017-07-14] MEDS: ASPIRIN CHEW 81 MG TABLET PO SCH (09:28)
[2017-07-14] MEDS: CARVEDILOL 6.25 MG TABLET PO SCH ×2 (09:29→16:56)
[2017-07-14] MEDS: PARoxetine 20 MG TABLET PO SCH (09:29)
[2017-07-14] MEDS: BUDESONIDE/FORMOTEROL 160-4.5 INHALER 6 GM INH SCH (09:29)
[2017-07-14] MEDS: ISOSORBIDE MONONITRATE 30 MG TABLET PO SCH (09:29)
[2017-07-14] MEDS: INSULIN GLARGINE 100 UNIT/ML SUBCUT SCH (09:30)
[2017-07-14] MEDS: FUROSEMIDE 40 MG/4 ML VIAL IV SCH ×2 (10:04→16:56)
[2017-07-14] MEDS ORDERED: MAGNESIUM SULF RIDER 2 GM in PREMIX 1 EACH IV PRN (15:16)
[2017-07-14] MEDS ORDERED: POTASSIUM CHLORIDE RIDER 10 MEQ in PREMIX 1 EACH IV PRN (15:16)
[2017-07-14] MEDS ORDERED: DIAZEPAM 5 MG TABLET PO ONE (15:16)
[2017-07-14] MEDS ORDERED: diphenhydrAMINE CAP 25 MG CAPSULE PO ONE (15:16)
--- NOTE | 2017-07-14 15:22 | Cardiology Progress Note ---
Assessment and Plan (1) Chronic combined systolic and diastolic heart failure Status: Acute Assessment and plan: Her shortness of breath better with diuresis She is on good evidence-based medication for systolic heart failure May be some diastolic heart failure from her untreated sleep apnea, contributing to her symptoms I encouraged encouraged to sleep propped up It is possible untreated sleep apnea is causing her pulmonary hypertension Her TSH is elevated, suggesting inadequate repletion of her hypothyroidism We will increase the levothyroxine 175 mcg daily Recheck CMP every morning 3 Right heart cath on Saturday07/14/17: Continue diuresis With TSH as high as it was, will increase to 175 mcg every morning. Recheck TSH in 6 weeks We will consult Dr. Velasquez regarding options of getting another CPAP which is not pay for by her insurance--using CPAP regularly would probably help lessen her heart failure in addition to help resolve the pulmonary hypertension The risk and benefits of the right heart catheter discussed the patient. She agrees to proceed. It will be done tomorrow afternoon right heart cath were discussed with the patient. The risk of the procedure include but are not limited to a small risk of injury to the vessel, abnormal heart rhythm, stroke, heart attack, need for emergent surgery, contrast reaction , restenosis, or . The patient voices understanding, agrees with the plan , and desires to proceed with the heart catheterization. I will recheck a chemistry in the morning Current Visit: Yes (2) NICM (nonischemic cardiomyopathy) Status: Chronic Current Visit: No (3) Cellulitis Status: Acute Current Visit: No (4) Chronic systolic (congestive) heart failure Status: Acute Current Visit: No (5) Congestive heart failure Status: Acute Current Visit: No (6) Exertional dyspnea Status: Acute Current Visit: No (7) Intravascular volume depletion Status: Acute Current Visit: No (8) Biventricular ICD (implantable cardioverter-defibrillator) in place Status: Chronic Current Visit: No (9) CHF (congestive heart failure) Status: Chronic Current Visit: No (10) COPD (chronic obstructive pulmonary disease) Status: Chronic Current Visit: No (11) Cardiomyopathy Status: Chronic Current Visit: No (12) Diabetes Status: Chronic Current Visit: No (13) Dyslipidemia Status: Chronic Current Visit: No (14) Elevated troponin Status: Chronic Current Visit: No (15) Hypertension Status: Chronic Current Visit: No (16) Hypothyroid Status: Chronic Current Visit: No (17) Obstructive sleep apnea syndrome Status: Chronic Current Visit: No Cardiology - PN: Subj Interval history: No chest pain. Less shortness of breath. Exam (Progress Note) - Constitutional Vitals: Period Temp Pulse Resp BP Sys/Cazares Pulse Ox Last 24 Hr 97.1 F-98.5 F 58-64 16-20 94-122/51-66 93-98 Exam: HEENT: Pupils equal, reactive to light and accommodation Neck: NoJVD or bruit Lungs clear to auscultation Heart: Regular rhythm rate with normal S1 and S2. Apical S4 Abdomen: No hepatosplenomegaly Spine/extremities: No clubbing, cyanosis, or edema Neuro: Nonfocal Psych: No depression or anxiety Result/EKG - Labs CBC & BMP: 07/12/17 13:50 07/14/17 05:30 Lab Results: I have reviewed the past 24 hour labs Labs: Laboratory Results - last 24 hr 07/13/17 07/14/17 07/14/17 20:27 05:30 05:30 Sodium 141 141 Potassium 4.0 4.0 Chloride 105 105 Carbon Dioxide 28 28 Anion Gap 12.0 12.0 BUN 25 H 24 H Creatinine 1.10 H 1.10 H GFR Calculation 69 69 BUN/Creatinine Ratio 22.00 H 21.00 H Glucose 140 H 143 H POC Glucose 221 H Calculated Osmolality 286.3 286.3 Calcium 8.5 8.5 Magnesium 2.4 Total Bilirubin 1.00 AST 15 ALT 15 Alkaline Phosphatase 78 Total Protein 6.5 Albumin 3.6 Globulin 2.9 Albumin/Globulin Ratio 1.2 07/14/17 08:15 Sodium Potassium Chloride Carbon Dioxide Anion Gap BUN Creatinine GFR Calculation BUN/Creatinine Ratio Glucose POC Glucose 92 Calculated Osmolality Calcium Magnesium Total Bilirubin AST ALT Alkaline Phosphatase Total Protein Albumin Globulin Albumin/Globulin Ratio - EKG EKG results: interpreted by nv Quality Measures - VTE Contraindication to Pharmacological VTE Prophylaxis: High Risk of Bleeding
[2017-07-14] MEDS: clonazePAM 0.5 MG TABLET PO SCH (21:46)
[2017-07-14] MEDS: POTASSIUM GLUCONATE 500 MG TABLET PO SCH (21:46)
[2017-07-15 05:29] LABS: Calcium 8.5 MG/DL (8.5-10.1); Magnesium 2.4 MG/DL (1.8-2.4); Osmolality,Calculated 285.4 MOS/KG (273-304); Osmolality,Calculated 286.3 MOS/KG (273-304); Potassium 3.8 MMOL/L (3.5-5.1); Potassium 3.9 MMOL/L (3.5-5.1)
[2017-07-15 05:30] LABS: Albumin 3.6 G/DL (3.4-5.0); Bilirubin,Total 0.8 MG/DL (0.2-1.0); Calcium 8.2 MG/DL (8.5-10.1); Osmolality,Calculated 287.3 MOS/KG (273-304); Potassium 3.9 MMOL/L (3.5-5.1); Total Protein 6.5 G/DL (6.4-8.3)
[2017-07-15] MEDS ORDERED: diphenhydrAMINE CAP 25 MG CAPSULE PO ONE (06:00)
[2017-07-15] MEDS ORDERED: DIAZEPAM 5 MG TABLET PO ONE (06:00)
[2017-07-15] MEDS: LEVOTHYROXINE 175 MCG TABLET PO SCH (06:14)
[2017-07-15] MEDS: ASPIRIN CHEW 81 MG TABLET PO SCH (08:35)
[2017-07-15] MEDS: CARVEDILOL 6.25 MG TABLET PO SCH ×2 (08:35→18:37)
[2017-07-15] MEDS: SPIRONOLACTONE 50 MG TABLET PO SCH (08:35)
[2017-07-15] MEDS: SACUBITRIL/VALSARTAN 49-51 MG TABLET PO SCH (08:35)
[2017-07-15] MEDS: INSULIN GLARGINE 100 UNIT/ML SUBCUT SCH (08:36)
[2017-07-15] MEDS: GABAPENTIN 600 MG TABLET PO SCH ×2 (08:36→20:41)
[2017-07-15] MEDS: ISOSORBIDE MONONITRATE 30 MG TABLET PO SCH (08:36)
[2017-07-15] MEDS: BUDESONIDE/FORMOTEROL 160-4.5 INHALER 6 GM INH SCH (08:37)
[2017-07-15] MEDS: PARoxetine 20 MG TABLET PO SCH (08:37)
[2017-07-15] MEDS: PANTOPRAZOLE 40 MG TABLET PO SCH (08:37)
[2017-07-15] MEDS: FUROSEMIDE 40 MG/4 ML VIAL IV SCH (08:38)
[2017-07-15] MEDS: DIGOXIN 0.125 MG TABLET PO SCH (08:38)
[2017-07-15] MEDS ORDERED: DIAZEPAM 5 MG TABLET ONE (13:34)
[2017-07-15] MEDS ORDERED: diphenhydrAMINE CAP 25 MG CAPSULE ONE (13:35)
[2017-07-15] MEDS ORDERED: LIDOCAINE 1% 20 ML VIAL ONE (13:53)
[2017-07-15] MEDS ORDERED: HEPARIN 5,000 UNIT/1 ML VIAL ONE (13:53)
--- NOTE | 2017-07-15 14:11 | History and Physical Update ---
Sedation H&P Update - History and Physical H&P was reviewed, the patient examined and there: are no changes in the patients condition since last H&P was completed. - Dictation Physical: refer to H&P completed by admitting physician - Physical Exam Mental Status: alert and oriented Heart: regular rate and rhythm Lung: clear to auscultation Abdomen: within normal limits Vitals: within normal limits - Sedation Plan for Sedation: minimal Patient Consent: Procedure disscussed with patient and patinet has consented., Risks and benefits were discussed with patient,including infection,, bleeding, injury to surrounding structures, seizure, temporary nerve, Patient understands and accepts potential risks/benefits and agrees to, proceed. ASA Class: II Airway Assessment: Class III: Soft palate, base of uvula visible
[2017-07-15] MEDS ORDERED: MEPERIDINE 25 MG/1 ML VIAL ONE (14:19)
[2017-07-15] MEDS ORDERED: MIDAZOLAM 2 MG/2 ML VIAL ONE (14:19)
--- NOTE | 2017-07-15 15:05 | Operative Note ---
Date of procedure: 07/15/17 Procedure Preformed: entry of right femoral vein Right heart cath Oxygen saturation measurements of SVC and PA Thermodilution cardiac outputs Surgeon / Physician: Mendez Jacinto [place] Technician: Peter Paez Post-op diagnosis: same (Recurrent heart failure, nonischemic cardiomyopathy,) Findings: Impression Normal right heart pressures Cardiac output is low, 3.1 L/min Plan/recommendations: The patient will have adjusted medications based on the heart cath. Consideration of Dr. Joycelyn Batres of referring her to an advanced heart failure center could be made. I have consulted Dr. Roslyn Velasquez to see the patient about trying to supply her a new CPAP machine as her current one is broken and her insurance will not pay for it to be repaired or replaced. Untreated obstructive sleep apnea would certainly aggravate her condition/ heart failure. Follow-up will be scheduled. Addenda: I saw the patient post-cath. the groin puncture site and distal pulse are stable. vital signs are stable and the patient will be observed closely overnight. Specimens: none sent Estimated blood loss: minimal Condition: stable Anesthesia: local, conscious sedation Disposition: floor
--- NOTE | 2017-07-15 15:11 | Cardiology Operative Report ---
Date of Procedure:: 07/15/17 Post-op diagnosis: same (Recurrent heart failure, nonischemic cardiomyopathy,) Procedure: Patient Name: Veronica Cotto Date of : 1955 Patient Status: Inpatient Attending Provider: Mendez Jacinto Date: 07/15/17 14:53 Initialization Date: 07/15/17 14:53 Date of procedure: 07/15/17 Procedure Preformed: entry of right femoral vein Right heart cath Oxygen saturation measurements of SVC and PA Thermodilution cardiac outputs Surgeon / Physician: Mendez Jacinto Entry Level Project Engineer: Peter Paez Post-op diagnosis: same (Recurrent heart failure, nonischemic cardiomyopathy,) Procedure: Right heart catheterization was performed by entering the right femoral vein using a Seldinger technique. I then placed a 7.5 Turkish thermal dilution catheter in the pulmonary artery. O2 sats were obtained at that site and in the SVC . I then did thermodilution cardiac outputs. I then did a right heart pullback, measuring the pressures to the right heart. Hemodynamic data PC = 9 PA = 25/15 RV = 25/5 RA = 5 Cardiac output is 3.1 L/min. O2 sat is about 65% in SVC and PA Impression Normal right heart pressures Cardiac output is low, 3.1 L/min Plan/recommendations: The patient will have adjusted medications based on the heart cath. Consideration of Dr. Joycelyn Batres of referring her to an advanced heart failure center could be made. I have consulted Dr. Roslyn Velasquez to see the patient about trying to supply her a new CPAP machine as her current one is broken and her insurance will not pay for it to be repaired or replaced. Untreated obstructive sleep apnea would certainly aggravate her condition/ heart failure. Follow-up will be scheduled. Addenda: I saw the patient post-cath. the groin puncture site and distal pulse are stable. vital signs are stable and the patient will be observed closely overnight. Specimens: none sent Estimated blood loss: minimal Condition: stable Anesthesia: local, conscious sedation Disposition: floor Additional CC's: Fernandez Morales Anesthesia: local, minimal conscious sedation Surgeon / Physician: Mendez Jacinto Entry Level Project Engineer: other Estimated blood loss: minimal Specimens: none sent Condition: stable Disposition: floor
[2017-07-15] MEDS ORDERED: MORPHINE 2 MG/1 ML SYRINGE IV PRN (15:21)
[2017-07-15] MEDS ORDERED: ACETAMINOPHEN/CODEINE 300-30 MG TABLET PO PRN (15:21)
--- NOTE | 2017-07-15 15:54 | Sleep Medicine Consult ---
Assessment and Plan (1) Obstructive sleep apnea syndrome Status: Chronic Assessment and plan: This patient has a history of severe obstructive sleep apnea and has been without treatment for several months due to her machine being infested with roaches. These machines cannot be repaired and insurance will not replace them. This will have to be purchased [id number]. We can place her on auto titration machine and there are machines that she can purchase that are used and obtained a lesser expense. We will be glad to assist her in that search for a used machine if that is what she desires. Follow-up will be scheduled in the sleep clinic after discharge. Thank you for this consult and the opportunity to participate in her care. Current Visit: No History of Present Illness Chief complaint: Obstructive sleep apnea History of present illness: Ms. Cotto is a 61 year old female with a history of severe obstructive sleep apnea diagnosed in 2014 with an AHI of 46.9. She underwent CPAP titration and was placed on 18 cm of CPAP. She used her machine and was very compliant with it. She took it with her to stay at her daughter's for period of time and while there, her machine became infested with roaches. She has not been able to use her equipment now for several months and is been admitted with fluid retention and congestive heart failure. She has lost significant weight since her original diagnosis but does continue to snore loudly and have abnormal breathing during her sleep. She does have symptoms of fatigue and sleepiness during the day. Home Medications Medication Instructions Recorded Confirmed Type Gabapentin 600 mg PO BID 05/03/16 07/12/17 History Insulin Glargine,Hum.rec.anlog 10 unit SUBCUT DAILY 05/03/16 07/12/17 History [Lantus SoloStar] Pantoprazole Tab [Protonix Tab] 40 mg PO DAILY 05/03/16 07/12/17 History Zolpidem [Ambien] 5 mg PO BEDTIME PRN 05/03/16 07/12/17 History Budesonide/Formoterol 160-4.5 2 puff INH DAILY 05/04/16 07/12/17 History [Symbicort 160-4.5] Isosorbide Mononitrate [Isosorbide 30 mg PO QAM 08/24/16 07/12/17 History Mononitrate ER] PARoxetine [Paxil] 20 mg PO DAILY 08/24/16 07/12/17 History Carvedilol [Coreg] 6.25 mg PO BID #60 tablet 11/02/16 07/12/17 Rx Aspirin Chew Tab 81 mg PO DAILY 12/10/16 07/12/17 History Digoxin Tab [Lanoxin Tab] 2 tablet PO DAILY 12/10/16 07/12/17 History Levothyroxine Tab [Synthroid Tab] 125 mcg PO DAILY@0700 12/10/16 07/12/17 History Spironolactone [Aldactone] 50 mg PO DAILY #30 tablet 12/13/16 07/12/17 Rx Furosemide 180 mg PO DAILY 03/04/17 07/12/17 History Sacubitril/Valsartan [Entresto 49 2 tablet PO DAILY 03/04/17 07/12/17 History mg-51 mg Tablet] Hydrocodone/Acetaminophen 1 tablet PO Q6HR PRN 07/12/17 07/12/17 History [Hydrocodon-Acetaminophn 10-325] Potassium Gluconate 250 mg PO BEDTIME 07/12/17 07/12/17 History Tiotropium Br/Olodaterol HCl 4 gm INH DAILY PRN 07/12/17 07/12/17 History [Stiolto Respimat Inhal [place]] clonazePAM [Clonazepam] 2 mg PO BEDTIME 07/12/17 07/12/17 History Allergies Allergy/AdvReac Type Severity Reaction Status Date / Time nitrofurantoin Allergy ITCHING Verified 03/04/17 10:23 [From Macrobid] Penicillins Allergy ITCHING Verified 03/04/17 10:23 Review of systems: Notable for recent issues with fluid retention but otherwise unremarkable from a sleep standpoint. Exam (Pulmonay) H&P - Constitutional Vitals: Period Temp Pulse Resp BP Sys/Cazares Pulse Ox Last 24 Hr 97.1 F-97.9 F 59-60 16-20 101-113/52-57 91-98 Exam: She is alert and responsive in no acute distress. Pupils equal round reactive to light and accommodation. Extraocular movements intact. Oropharynx with a class III Mallampati exam. Neck is supple without adenopathy or thyromegaly. No supraclavicular adenopathy is noted. Chest with symmetrical breath sounds without focal wheeze, rhonchi, or rales. Cardiac exam reveals a regular rhythm without murmur or gallop. Abdomen soft nontender but obese. Extremities without significant clubbing, cyanosis, or edema. Neurologically, she is grossly intact. She moves all extremities with good strength. Medical,Surgical,& Family Hx - Medical History Cardio: History of: Cardiac Dysrhythmia, CHF, Hypertension, Pacemaker (ICD DR [place] AT [place]) No history of: CAD Neurology: No history of: Seizures Endocrine: History of: Diabetes Mellitus (IDDM), Thyroid Disorder Respiratory: History of: COPD, Obstructive Sleep Apnea (NO CPAP), Pneumonia Comment Only: Respiratory Problems (wears O2 2L at night) Genitourinary: History of: Kidney Stones Gastrointestinal: History of: GERD Other: History of: MRSA - Surgical History Cardiac Surgeries: Sugical HX of: Cardiac Catheterization, Internal Defibrillator Thoracic Surgeries: Patient denies;: Lobectomy Neurologic Surgeries: Patient denies: Neurologic Surgery HEENT Surgeries: Surgical HX of: Thyroid Surgery Patient denies: Eye Surgery, Tonsilectomy & Adenoidectomy Abdominal Surgeries: Surgical HX of: Colonoscopy Reproductive Surgeries: Surgical HX of;: Gynecologic Surgery, Hysterectomy Orthopedic Surgeries: Surgical HX of;: Implanted Devices (PLATE SCREWS R LEG), Orthopedic Surgery (R LEG) - Family History Family History: Reports;: Family Cancer (MOM DAD), Family Diabetes (GRANDMOTHER) , Family Heart Disease, Family Hypertension - Social History Smoking Status: Never smoker Frequency of Alcohol Use: None Type of Drug Use: None Results - Labs CBC & BMP: 07/12/17 13:50 07/15/17 04:40 Lab Results: I have reviewed the past 24 hour labs Quality Measures - VTE Contraindication to Pharmacological VTE Prophylaxis: High Risk of Bleeding
[2017-07-15] MEDS: clonazePAM 0.5 MG TABLET PO SCH (20:41)
[2017-07-15] MEDS: POTASSIUM GLUCONATE 500 MG TABLET PO SCH (20:41)
[2017-07-16] MEDS: LEVOTHYROXINE 175 MCG TABLET PO SCH (06:16)
[2017-07-16 06:29] LABS: Osmolality,Calculated 289.3 MOS/KG (273-304); Potassium 4.1 MMOL/L (3.5-5.1)
[2017-07-16 07:58] VITALS: BP 114/56
--- NOTE | 2017-07-16 08:01 | Discharge Summary ---
Hospital Course - Hospital Course Hospital Course: Talent Consultant: Dr. Morales Patient was directly admitted to [facility] July 12, [address] Batres is office for inpatient management of congestive heart failure exacerbation. She was diuresed with IV Lasix. When her volume overload improved she underwent right heart catheterization Saturday, July 15, [address] Mendez Jacinto with the following impressions noted: HEMODYNAMIC DATA PC = 9 PA = 25/15 RV = 25/5 RA = 5 Cardiac output is 3.1 L/min. O2 sat is about 65% in SVC and PA IMPRESSIONS Normal right heart pressures Cardiac output is low, 3.1 L/min Post heart catheterization patient was transported back to the telemetry unit in stable condition. She has done well overnight and is without complications. Right groin is soft without bleeding, hematoma and bruit. Distal pulses 2+. Patient has ambulated around the room without difficulty. Right groin has remained stable post ambulation. Right groin precautions have been reviewed with the patient. She verbalizes understanding. Dr. Morales could consider referring her to an advanced heart failure center. Patient does have known obstructive sleep apnea. However, she has been noncompliant with her CPAP as her current one is breaking and her insurance will not pay for repair or replacement. She was seen in consultation by Dr. Velasquez as her untreated sleep apnea certainly may be aggravating her recurrent heart failure. He is planning to find her a used CPAP machine. She will follow with him on an outpatient basis. TSH was high this hospitalization. Levothyroxine was increased to 175 mcg daily. She will need a repeat TSH in 6 weeks. This morning, patient's creatinine is 1.2. Per her labs she appears to be slightly over diuresed. I will decrease patient's Lasix dose at discharge. She will be given a follow-up appoint with Dr. Morales in 1 week with NIC. Patient is anxious for discharge home today. Having felt that she has met maximum medical benefit , she will be discharged home in stable condition per She has been given a follow-up appoint with Dr. Morales in 1 week with NIC She has also been given a follow-up appoint with Dr. Velasquez in 2 weeks. She will be discharged home with her preadmission medications with the exception of Lasix, levothyroxine and potassium. Lasix was decreased to 40 mg daily she appears to be slightly over diuresed currently. Potassium dosage was also decreased significantly as patient is on Aldactone with a lower dose of Lasix. Patient will have follow-up BMP in 1 week. Patient verbalizes understanding of discharge instructions and discharge medications. I saw and examined the patient with Ms. Lobato. The patient ready for discharge I think given her numbers and her volume status we can decrease her Lasix. She seems to be maximized from other heart failure regimens. If she has recurrent volume overload we may have to increase her Lasix. Her renal function is good. - Time spent with patient Time with patient DS: Greater than 30 minutes Diagnosis - Discharge Diagnosis (1) Chronic combined systolic and diastolic heart failure Status: Chronic (2) Biventricular ICD (implantable cardioverter-defibrillator) in place Status: Chronic (3) COPD (chronic obstructive pulmonary disease) Status: Chronic (4) Diabetes Status: Chronic (5) Dyslipidemia Status: Chronic (6) Hypertension Status: Chronic (7) Hypothyroidism Status: Chronic (8) NICM (nonischemic cardiomyopathy) Status: Chronic (9) Obstructive sleep apnea syndrome Status: Chronic Specialty Discharge - Follow Up or Referrals Follow up with: Fernandez Morales MD [Physician] - 1 Week (bmp) Hollie Velasquez MD [Physician] - 2 Weeks Discharge Plan - Discharge Data Disposition: Disch To Home/Self Care Condition at Discharge: Stable Discharge Diet: heart healthy, low salt diet Activity: no lifting (Avoid lifting and squatting 1 week), other (Post cath expectations) Hygiene: may shower, other (Post cath expectations) Weight Bearing at Discharge: other (Post cath expectations) Driving: other (Post cath expectations) Contact your physician if you experience:: fever over 101, Difficulty voiding, Redness or swelling, Nausea/Vomiting, Shortness of breath, Bleeding, pain uncontrolled by pain medications - Discharge Medications New Potassium Gluconate 90 mg PO DAILY #30 tablet Furosemide Tab [Lasix Tab] 40 mg PO DAILY #30 tablet Levothyroxine Tab [Synthroid Tab] 175 mcg PO DAILY@0700 #30 tablet Continue Zolpidem [Ambien] 5 mg PO BEDTIME PRN PRN Reason: Sleep Pantoprazole Tab [Protonix Tab] 40 mg PO DAILY Insulin Glargine,Hum.rec.anlog [Lantus SoloStar] 10 unit SUBCUT DAILY Gabapentin 600 mg PO BID Budesonide/Formoterol 160-4.5 [Symbicort 160-4.5] 2 puff INH DAILY Isosorbide Mononitrate [Isosorbide Mononitrate ER] 30 mg PO QAM PARoxetine [Paxil] 20 mg PO DAILY Carvedilol [Coreg] 6.25 mg PO BID #60 tablet Aspirin Chew Tab 81 mg PO DAILY clonazePAM [Clonazepam] 2 mg PO BEDTIME Hydrocodone/Acetaminophen [Hydrocodon-Acetaminophn 10-325] 1 tablet PO Q6HR PRN PRN Reason: Pain Digoxin Tab [Lanoxin Tab] 2 tablet PO DAILY Spironolactone [Aldactone] 50 mg PO DAILY #30 tablet Sacubitril/Valsartan [Entresto 49 mg-51 mg Tablet] 2 tablet PO DAILY Tiotropium Br/Olodaterol HCl [Stiolto Respimat Inhal [place]] 4 gm INH DAILY PRN PRN Reason: Shortness Of Breath Discontinued Levothyroxine Tab [Synthroid Tab] 125 mcg PO DAILY@0700 Furosemide 180 mg PO DAILY Potassium Gluconate 250 mg PO BEDTIME - Follow Up or Referral Follow Up: Fernandez Morales MD [Physician] - 1 Week (bmp) Hollie Velasquez MD [Physician] - 2 Weeks - Forms/Instructions Instructions: Left Heart Catheterization (DC), Sleep Apnea Syndrome (GEN), Low Sodium Diet (GEN) Exam - Constitutional Vitals: Period Temp Pulse Resp BP Sys/Cazares Pulse Ox Last 24 Hr 96.7 F-97.9 F 59-77 18-20 84-116/48-61 91-98 Exam: General: Appears well with no apparent distress. Pleasant and cooperative. Appears comfortable. HEENT: PERRL, normocephalic, atraumatic. Mucous membranes moist. No jaundice noted. Conjunctiva moist and clear, sclerae anicteric Neck: No JVD/HJR, no thyromegaly or lymphadenopathy noted. No carotid bruit appreciated Cardiac: Regular rate and rhythm. Lungs: Clear to auscultation without accessory muscle use to assist the respiratory pattern. Not requiring oxygen. Abdomen: Soft, bowel sounds normoactive. Nontender and nondistended. No abdominal bruit or thrill noted. No masses noted. Extremities: No clubbing, cyanosis noted. No edema noted. Upper extremity pulses 2+. Lower extremity pulses 2+. Capillary refill less than 3 seconds. Right groin soft without bleeding, hematoma and bruit. Distal pulses 2+. Skin: No unusual lesions or rashes. No skin breakdown appreciated. Neuro: Awake, alert and oriented 3. Moves all extremities well without hemiparesis or paralysis. No essential tremor is appreciated. Discharge Results Procedures and tests throughout hospitalization: Pending Orders 07/15/17 07:58 CL heart Routine Labs on day of discharge: Labs from last 24 hours 07/16/17 05:10 Sodium 141 Potassium 4.1 Chloride 105 Carbon Dioxide 28 Anion Gap 12.1 BUN 33 H Creatinine 1.20 H GFR Calculation 62 BUN/Creatinine Ratio 27.00 H Glucose 136 H Calculated Osmolality 289.3 Calcium 9.0 - Imaging and Cardiology Cardiology Procedure: report reviewed by me DS: Provider Date of admission: 07/12/17 13:33 Primary care physician: . No PCP Attending physician on admission: Mendez Jacinto MD Consults: 07/12/17 10:46 Consult to Cardiac Rehabilitation [CONS] Routine Reason for Cardiac Rehabilitation: Risk Factor Modification 07/14/17 15:13 Consult to Physician [CONS] Routine Comment: Consulting Provider: Hollie Velasquez Consulting Provider Notified: No When should Consulting Provider be notified: In am Consult Notification Comment: Patient known to you. Has broken CPAP machine. Cannot get it repaired or paid for our new replacement paid for by her insurance. Please evaluate and see if there are other options such as support groups with old CPAP of people who have which she could use until she comes up for a time when her insurance will pay for a new CPAP machine. Thank you. 07/15/17 07:42 Consult to Sleep Center [CONS] Routine Reason for Sleep Center: Technologist Assist Discharging clinician: Perla Lobato NP Expected date of discharge: 07/16/17
[2017-07-16] MEDS ORDERED: FUROSEMIDE 40 MG TABLET PO SCH (09:00)
[2017-07-16] MEDS: ISOSORBIDE MONONITRATE 30 MG TABLET PO SCH (09:00)
[2017-07-16] MEDS: PANTOPRAZOLE 40 MG TABLET PO SCH (09:00)
[2017-07-16] MEDS: DIGOXIN 0.125 MG TABLET PO SCH (09:00)
[2017-07-16] MEDS: ASPIRIN CHEW 81 MG TABLET PO SCH (09:00)
[2017-07-16] MEDS: SPIRONOLACTONE 50 MG TABLET PO SCH (09:00)
[2017-07-16] MEDS: GABAPENTIN 600 MG TABLET PO SCH (09:00)
[2017-07-16] MEDS: SACUBITRIL/VALSARTAN 49-51 MG TABLET PO SCH (09:00)
[2017-07-16] MEDS: PARoxetine 20 MG TABLET PO SCH (09:00)
[2017-07-16] MEDS: CARVEDILOL 6.25 MG TABLET PO SCH (09:00)
[2017-07-16] MEDS: INSULIN GLARGINE 100 UNIT/ML SUBCUT SCH (09:01)
[2017-07-16] MEDS: BUDESONIDE/FORMOTEROL 160-4.5 INHALER 6 GM INH SCH (09:03)
== END 2017-07-16 11:17 | disposition home or self-care (01) | DRG 287 ==
LOC: N.TELES 13:33
PROVIDERS: ADMIT Internal Medicine Cardiovascular Disease; ATTEND Internal Medicine Cardiovascular Disease

== ENCOUNTER 2021-05-25 19:39 | Inpatient (IN) ==
[2021-05-25] MEDS ORDERED: VECURONIUM 10 MG VIAL IV ONE (19:58)
[2021-05-25] MEDS ORDERED: ETOMIDATE 20 MG/10 ML VIAL IV ONE (19:58)
[2021-05-25 20:04] LABS: Basophils # 0.1 10*3/uL (0.0-0.2); Basophils % 0.4 % (0.0-0.8); Eosinophils # 0.1 10*3/uL (0.0-0.87); Eosinophils % 0.9 % (0.00-10.9); Hematocrit 42.4 VOL% (35.7-47.0); Hemoglobin 12.8 GM/DL (12.0-16.0); Immature Granulocytes % 0.5 %; Immature Granulocytes Absolute 0.07 #; Lymphocytes % 22.9 % (21.3-54.2); Mean Corpuscular HGB Conc 30.2 GM/DL (32-36); Mean Corpuscular Volume 97.7 FL (87-102); Mean Platelet Volume 12.3 FL (9.6-12.0); Monocytes % 5.8 % (1.7-12.7); Neutrophils % 69.5 % (38.7-73.9); Platelet Count 65 T/CUMM (130-400); Red Blood Count 4.34 MC/CUMM (3.8-5.5); Red Cell Distribution Width 13.2 % (9.3-17.3); White Blood Count 13.2 T/CUMM (4-12)
[2021-05-25] MEDS ORDERED: FUROSEMIDE 100 MG/10 ML VIAL IV STA (20:16)
[2021-05-25] MEDS ORDERED: methylPREDNISolone SOD SUC 125 MG/2 ML VIAL IV STA (20:16)
[2021-05-25] MEDS ORDERED: ONDANSETRON 4 MG/2 ML VIAL IV STA (20:16)
[2021-05-25] MEDS ORDERED: MORPHINE 4 MG/1 ML VIAL IV STA (20:16)
[2021-05-25 20:23] LABS: Albumin 3.5 G/DL (3.4-5.0); Bilirubin,Total 1.5 MG/DL (0.2-1.0); Calcium 8.3 MG/DL (8.5-10.1); Osmolality,Calculated 288.5 MOS/KG (273-304); Potassium 3.3 MMOL/L (3.5-5.1); Total Protein 6.9 G/DL (6.4-8.2)
[2021-05-25] MEDS ORDERED: ACETAMINOPHEN 650 MG SUPP RECTAL STA (20:23)
[2021-05-25] MEDS ORDERED: VANCOMYCIN INJ 1,000 MG in SODIUM CHLORIDE 0.9% 250 ML IV STA (20:25)
[2021-05-25] MEDS ORDERED: LEVOFLOXACIN INJ 750 MG/150 ML PREMIX IV STA (20:25)
[2021-05-25 20:28] LABS: Bilirubin,Urine Negative (Negative); Blood, Urine Negative (Negative); Glucose,Urine (UA) >=500 mg/dL (Negative); Hyaline Casts,Urine 4 /LPF (0-3); Ketones,Urine 5 mg/dL (Negative); Mucus,Urine Occasional /LPF (Occasional); Nitrite,Urine Negative (Negative); Protein,Urine 30 MG/DL; RBC,Urine 3 /HPF (0-4); Squamous Epithelial Cell,Urine Occasional /HPF (0-10); Urine Appearance Slightly Hazy (Clear); Urine Color Amber (Yellow); Urine Specific Gravity 1.033 (1.001-1.035)
[2021-05-25 20:31] LABS: INR 1.1; PT Patient Result 12.2 SECS (10.5-12.0); Partial Thromboplastin Time 23.1 SECS (23.9-33.8); Platelet Estimate Decreased
[2021-05-25 20:36] LABS: ABG Base Excess -12.1 MMOL/L (-2.5-2.5); ABG HCO3 15.1 MMOL/L (20-26); ABG Oxygen Saturation 96.6 % (95-100); ABG PCO2 54.7 MM HG (35-48); ABG TCO2 16.6 MMOL/L (23-27); Allen Test Positive; Pt O2 Delivery Device Ventilator
[2021-05-25 20:42] LABS: ABG PH 7.126 (7.35-7.45)
[2021-05-25] MEDS ORDERED: ALBUTEROL 2.5 MG/3 ML NEB RESP TX PRN (22:04)
[2021-05-25] MEDS ORDERED: GLUCAGON 1 MG VIAL IM PRN (22:13)
[2021-05-25] MEDS ORDERED: DEXTROSE 50% 25 GM/50 ML VIAL IV PRN (22:13)
[2021-05-25] MEDS ORDERED: MIDAZOLAM 2 MG/2 ML VIAL IV ONE (22:21)
[2021-05-25] MEDS ORDERED: MIDAZOLAM 2 MG/2 ML VIAL ONE (22:21)
[2021-05-25] MEDS: DOBUTamine 500 MG/250 ML PREMIX IV SCH (22:50)
[2021-05-26] MEDS ORDERED: VANCOMYCIN INJ 1,500 MG in SODIUM CHLORIDE 0.9% 500 ML IV ONE
[2021-05-26] MEDS: PANTOPRAZOLE 40 MG VIAL IV SCH ×2 (00:07→22:14)
[2021-05-26] MEDS: FUROSEMIDE 40 MG/4 ML VIAL IV SCH ×4 (00:07→22:15)
[2021-05-26] MEDS: INSULIN LISPRO 100 UNIT/ML SUBCUT SCH ×4 (00:08→18:15)
[2021-05-26] MEDS: ALBUTEROL/IPRATROPIUM 3 ML NEB RESP TX SCH ×4 (00:39→19:17)
[2021-05-26] MEDS: CEFEPIME 1,000 MG in SODIUM CHLORIDE 0.9% 100 ML IV SCH ×4 (01:33→22:13)
[2021-05-26 02:45] LABS: ABG Base Excess -1.5 MMOL/L (-2.5-2.5); ABG HCO3 23.2 MMOL/L (20-26); ABG PCO2 39.2 MM HG (35-48); ABG PH 7.384 (7.35-7.45); ABG TCO2 20.7 MMOL/L (23-27)
[2021-05-26 03:42] LABS: Basophils % 0.1 % (0.0-0.8); Hematocrit 37.8 VOL% (35.7-47.0); Hemoglobin 11.7 GM/DL (12.0-16.0); Immature Granulocytes % 0.5 %; Immature Granulocytes Absolute 0.04 #; Lymphocytes # 0.4 10*3/uL (1.4-4.0); Lymphocytes % 5.6 % (21.3-54.2); Mean Platelet Volume 12.5 FL (9.6-12.0); Monocytes % 4.2 % (1.7-12.7); Neutrophils % 89.6 % (38.7-73.9); Platelet Count 52 T/CUMM (130-400); Red Blood Count 4.02 MC/CUMM (3.8-5.5); Red Cell Distribution Width 13.1 % (9.3-17.3); White Blood Count 7.7 T/CUMM (4-12)
[2021-05-26 04:20] LABS: Band Neutrophils 3 % (0-10); Lymphocytes 6 % (20-55); Segmented Neutrophils 89 % (50-85); Total Cells Counted 100
[2021-05-26 04:21] LABS: Hypochromasia 1+; Microcytosis 1+; Platelet Estimate Decreased
[2021-05-26 04:54] LABS: Calcium 7.8 MG/DL (8.5-10.1); Osmolality,Calculated 291.3 MOS/KG (273-304); Potassium 3.7 MMOL/L (3.5-5.1); Risk Ratio 2.76; Thyroid Stimulating Hormone 0.842 uIU/ml (0.358-3.74); VLDL Cholesterol 15.4 MG/DL
[2021-05-26] MEDS ORDERED: SACUBITRIL/VALSARTAN 49-51 MG TABLET PO SCH ×2 (09:00→21:00)
[2021-05-26] MEDS ORDERED: carvediloL 6.25 MG TABLET PO SCH (09:00)
[2021-05-26] MEDS ORDERED: ISOSORBIDE MONONITRATE 30 MG TABLET PO SCH (09:00)
[2021-05-26] MEDS: ASPIRIN CHEW 81 MG TABLET PO SCH (09:31)
[2021-05-26] MEDS: LEVOTHYROXINE 175 MCG TABLET PO SCH (09:31)
[2021-05-26] MEDS: SPIRONOLACTONE 50 MG TABLET PO SCH (09:31)
[2021-05-26] MEDS: DOBUTamine 500 MG/250 ML PREMIX IV SCH (13:25)
[2021-05-26] MEDS: ROSUVASTATIN 20 MG TABLET PO SCH (20:33)
[2021-05-26] MEDS: MINERAL OIL/PETROLATUM OPH OINT 3.5 GM TUBE BOTH EYES SCH (20:34)
[2021-05-26] MEDS: VANCOMYCIN INJ 1,500 MG in SODIUM CHLORIDE 0.9% 500 ML IV SCH (22:13)
[2021-05-27] MEDS: INSULIN LISPRO 100 UNIT/ML SUBCUT SCH ×4 (00:40→18:02)
[2021-05-27] MEDS: ALBUTEROL/IPRATROPIUM 3 ML NEB RESP TX SCH ×4 (00:54→19:08)
[2021-05-27] MEDS ORDERED: POTASSIUM CHLORIDE RIDER 10 MEQ/100 ML PREMIX IV PRN (01:49)
[2021-05-27] MEDS: POTASSIUM CHLORIDE RIDER 20 MEQ/100 ML PREMIX IV PRN ×3 (02:15→09:40)
[2021-05-27 04:44] LABS: ABG Base Excess 1.5 MMOL/L (-2.5-2.5); ABG HCO3 25.3 MMOL/L (20-26); ABG Oxygen Saturation 98.6 % (95-100); ABG PCO2 37.1 MM HG (35-48); ABG PH 7.452 (7.35-7.45); ABG PO2 137.7 MM HG (80-95); ABG TCO2 26.5 MMOL/L (23-27); Allen Test Positive; Pt O2 Delivery Device Ventilator
[2021-05-27] MEDS: DOBUTamine 500 MG/250 ML PREMIX IV SCH ×3 (05:16→23:34)
[2021-05-27 05:36] LABS: Basophils % 0.1 % (0.0-0.8); Eosinophils % 0.1 % (0.00-10.9); Hematocrit 37.4 VOL% (35.7-47.0); Hemoglobin 11.9 GM/DL (12.0-16.0); Immature Granulocytes % 0.8 %; Immature Granulocytes Absolute 0.07 #; Lymphocytes # 0.4 10*3/uL (1.4-4.0); Lymphocytes % 4.8 % (21.3-54.2); Mean Corpuscular HGB Conc 31.8 GM/DL (32-36); Mean Platelet Volume 12.4 FL (9.6-12.0); Monocytes % 5.8 % (1.7-12.7); Neutrophils % 88.4 % (38.7-73.9); Platelet Count 71 T/CUMM (130-400); Red Blood Count 4.02 MC/CUMM (3.8-5.5); Red Cell Distribution Width 13.2 % (9.3-17.3); White Blood Count 9.1 T/CUMM (4-12)
[2021-05-27 05:53] LABS: Albumin 2.9 G/DL (3.4-5.0); Bilirubin,Total 1.4 MG/DL (0.2-1.0); Calcium 8.2 MG/DL (8.5-10.1); Osmolality,Calculated 302.6 MOS/KG (273-304); Potassium 3.8 MMOL/L (3.5-5.1); Total Protein 6.4 G/DL (6.4-8.2)
[2021-05-27] MEDS: FUROSEMIDE 40 MG/4 ML VIAL IV SCH ×3 (06:49→23:39)
[2021-05-27] MEDS: LEVOTHYROXINE 175 MCG TABLET PO SCH (06:50)
[2021-05-27] MEDS: CEFEPIME 1,000 MG in SODIUM CHLORIDE 0.9% 100 ML IV SCH ×3 (06:50→23:39)
[2021-05-27] MEDS ORDERED: POTASSIUM PHOSPHATE 30 MMOL in SODIUM CHLORIDE 0.9% 250 ML IV ONE (07:12)
[2021-05-27 07:54] LABS: Hypochromasia Slight; Lymphocytes 6 % (20-55); Platelet Estimate Decreased; Segmented Neutrophils 89 % (50-85); Total Cells Counted 100
[2021-05-27] MEDS ORDERED: MIDAZOLAM 100 MG in SODIUM CHLORIDE 0.9% 80 ML IV PRN (08:38)
[2021-05-27] MEDS: LOSARTAN 25 MG TABLET PO SCH ×2 (08:50→20:31)
[2021-05-27] MEDS: SPIRONOLACTONE 50 MG TABLET PO SCH (08:50)
[2021-05-27] MEDS: ASPIRIN CHEW 81 MG TABLET PO SCH (08:50)
[2021-05-27] MEDS ORDERED: LACTATED RINGERS 250 ML IV ONE ×2 (12:51→13:00)
[2021-05-27] MEDS: DEXMEDETOMIDINE 200 MCG in SODIUM CHLORIDE 0.9% 48 ML IV PRN ×2 (13:45→20:03)
[2021-05-27] MEDS: MINERAL OIL/PETROLATUM OPH OINT 3.5 GM TUBE BOTH EYES SCH (20:32)
[2021-05-27] MEDS: PANTOPRAZOLE 40 MG VIAL IV SCH (23:39)
[2021-05-28] MEDS: INSULIN LISPRO 100 UNIT/ML SUBCUT SCH ×5 (00:19→23:46)
[2021-05-28] MEDS: VANCOMYCIN INJ 1,500 MG in SODIUM CHLORIDE 0.9% 500 ML IV SCH ×2 (00:19→23:13)
[2021-05-28] MEDS: ALBUTEROL/IPRATROPIUM 3 ML NEB RESP TX SCH ×4 (00:21→19:19)
[2021-05-28] MEDS: POTASSIUM CHLORIDE RIDER 20 MEQ/100 ML PREMIX IV PRN (01:15)
[2021-05-28] MEDS: DEXMEDETOMIDINE 400 MCG in SODIUM CHLORIDE 0.9% 96 ML IV PRN ×4 (02:06→19:44)
[2021-05-28 04:40] LABS: Basophils % 0.1 % (0.0-0.8); Eosinophils # 0.1 10*3/uL (0.0-0.87); Eosinophils % 1.5 % (0.00-10.9); Hematocrit 39.5 VOL% (35.7-47.0); Hemoglobin 12.6 GM/DL (12.0-16.0); Immature Granulocytes % 0.6 %; Immature Granulocytes Absolute 0.05 #; Lymphocytes # 1.1 10*3/uL (1.4-4.0); Lymphocytes % 13.1 % (21.3-54.2); Mean Corpuscular HGB Conc 31.9 GM/DL (32-36); Mean Corpuscular Volume 93.2 FL (87-102); Mean Platelet Volume 12.2 FL (9.6-12.0); Monocytes % 8.4 % (1.7-12.7); Neutrophils % 76.3 % (38.7-73.9); Platelet Count 98 T/CUMM (130-400); Red Blood Count 4.24 MC/CUMM (3.8-5.5); Red Cell Distribution Width 13.5 % (9.3-17.3); White Blood Count 8.1 T/CUMM (4-12)
[2021-05-28 04:47] LABS: ABG Base Excess 6.8 MMOL/L (-2.5-2.5); ABG HCO3 30.7 MMOL/L (20-26); ABG Oxygen Saturation 99.5 % (95-100); ABG PCO2 45.3 MM HG (35-48); ABG PH 7.457 (7.35-7.45); ABG TCO2 25.9 MMOL/L (23-27); Allen Test Positive; Pt O2 Delivery Device Ventilator
[2021-05-28 05:00] LABS: Hypochromasia Slight; Microcytosis Slight; Platelet Estimate Decreased
[2021-05-28 05:24] LABS: Calcium 8.2 MG/DL (8.5-10.1); Osmolality,Calculated 294.8 MOS/KG (273-304)
[2021-05-28] MEDS: CEFEPIME 1,000 MG in SODIUM CHLORIDE 0.9% 100 ML IV SCH ×3 (06:12→18:32)
[2021-05-28] MEDS: LEVOTHYROXINE 175 MCG TABLET PO SCH (06:12)
[2021-05-28] MEDS: FUROSEMIDE 40 MG/4 ML VIAL IV SCH ×3 (06:12→21:43)
[2021-05-28] MEDS: ASPIRIN CHEW 81 MG TABLET PO SCH (08:43)
[2021-05-28] MEDS: SPIRONOLACTONE 50 MG TABLET PO SCH (08:44)
[2021-05-28] MEDS ORDERED: LOSARTAN 25 MG TABLET PO SCH (09:00)
[2021-05-28] MEDS: TRIAMCINOLONE 0.1% CREAM 15 GM TUBE TOP SCH ×2 (12:11→20:50)
[2021-05-28] MEDS: DOBUTamine 500 MG/250 ML PREMIX IV SCH ×2 (16:42→19:42)
[2021-05-28] MEDS: MINERAL OIL/PETROLATUM OPH OINT 3.5 GM TUBE BOTH EYES SCH (20:50)
[2021-05-28] MEDS: PANTOPRAZOLE 40 MG VIAL IV SCH (21:36)
[2021-05-29] MEDS: ALBUTEROL/IPRATROPIUM 3 ML NEB RESP TX SCH ×4 (00:32→19:52)
[2021-05-29] MEDS: DEXMEDETOMIDINE 400 MCG in SODIUM CHLORIDE 0.9% 96 ML IV PRN ×2 (00:53→06:04)
[2021-05-29] MEDS: CEFEPIME 1,000 MG in SODIUM CHLORIDE 0.9% 100 ML IV SCH ×5 (01:15→23:51)
[2021-05-29 04:40] LABS: ABG Base Excess 7.6 MMOL/L (-2.5-2.5); ABG HCO3 31.6 MMOL/L (20-26); ABG Oxygen Saturation 98.1 % (95-100); ABG PCO2 41.8 MM HG (35-48); ABG PH 7.496 (7.35-7.45); ABG PO2 109.5 MM HG (80-95); ABG TCO2 32.9 MMOL/L (23-27); Allen Test Positive; Pt O2 Delivery Device Ventilator
[2021-05-29 05:16] LABS: Basophils % 0.3 % (0.0-0.8); Eosinophils # 0.2 10*3/uL (0.0-0.87); Eosinophils % 2.4 % (0.00-10.9); Hematocrit 43.3 VOL% (35.7-47.0); Hemoglobin 13.3 GM/DL (12.0-16.0); Immature Granulocytes % 0.8 %; Immature Granulocytes Absolute 0.06 #; Lymphocytes # 1.1 10*3/uL (1.4-4.0); Lymphocytes % 14.5 % (21.3-54.2); Mean Corpuscular HGB Conc 30.7 GM/DL (32-36); Mean Corpuscular Volume 94.7 FL (87-102); Monocytes % 10.5 % (1.7-12.7); Neutrophils % 71.5 % (38.7-73.9); Platelet Count 110 T/CUMM (130-400); Red Blood Count 4.57 MC/CUMM (3.8-5.5); Red Cell Distribution Width 13.2 % (9.3-17.3); White Blood Count 7.8 T/CUMM (4-12)
[2021-05-29 05:38] LABS: Albumin 3.1 G/DL (3.4-5.0); Bilirubin,Direct 0.35 MG/DL (0.0-0.20); Bilirubin,Indirect 1.2 MG/DL (0.0-1.0); Bilirubin,Total 1.5 MG/DL (0.2-1.0); Total Protein 7.2 G/DL (6.4-8.2)
[2021-05-29 05:42] LABS: Calcium 8.9 MG/DL (8.5-10.1); Osmolality,Calculated 295.8 MOS/KG (273-304); Potassium 4.3 MMOL/L (3.5-5.1)
[2021-05-29 05:49] LABS: Anisocytosis 1+; Macrocytosis Slight; Platelet Estimate Adequate; Spherocytes Few
[2021-05-29] MEDS: INSULIN LISPRO 100 UNIT/ML SUBCUT SCH ×4 (06:11→22:26)
[2021-05-29] MEDS: LEVOTHYROXINE 175 MCG TABLET PO SCH (06:11)
[2021-05-29] MEDS: FUROSEMIDE 40 MG/4 ML VIAL IV SCH ×3 (06:25→22:27)
[2021-05-29 08:58] LABS: ABG Base Excess 7.7 MMOL/L (-2.5-2.5); ABG HCO3 31.5 MMOL/L (20-26); ABG Oxygen Saturation 97.6 % (95-100); ABG PCO2 44.3 MM HG (35-48); ABG PH 7.473 (7.35-7.45); ABG PO2 93.3 MM HG (80-95); ABG TCO2 27.9 MMOL/L (23-27)
[2021-05-29] MEDS: SPIRONOLACTONE 50 MG TABLET PO SCH (10:05)
[2021-05-29] MEDS: ASPIRIN CHEW 81 MG TABLET PO SCH (10:05)
[2021-05-29] MEDS: TRIAMCINOLONE 0.1% CREAM 15 GM TUBE TOP SCH ×2 (10:05→22:27)
[2021-05-29] MEDS ORDERED: DEXTROSE 50% 25 GM/50 ML VIAL IV PRN (14:57)
[2021-05-29] MEDS ORDERED: VANCOMYCIN INJ 1,500 MG in SODIUM CHLORIDE 0.9% 500 ML IV SCH (17:00)
[2021-05-29] MEDS: MINERAL OIL/PETROLATUM OPH OINT 3.5 GM TUBE BOTH EYES SCH (22:26)
[2021-05-29] MEDS: PANTOPRAZOLE 40 MG VIAL IV SCH (22:27)
[2021-05-30] MEDS: ALBUTEROL/IPRATROPIUM 3 ML NEB RESP TX SCH ×4 (00:40→20:55)
[2021-05-30 05:55] LABS: Basophils % 0.5 % (0.0-0.8); Eosinophils # 0.6 10*3/uL (0.0-0.87); Eosinophils % 7.2 % (0.00-10.9); Hematocrit 42.1 VOL% (35.7-47.0); Hemoglobin 13.4 GM/DL (12.0-16.0); Immature Granulocytes % 0.8 %; Immature Granulocytes Absolute 0.07 #; Lymphocytes # 1.2 10*3/uL (1.4-4.0); Lymphocytes % 13.3 % (21.3-54.2); Mean Corpuscular HGB Conc 31.8 GM/DL (32-36); Mean Corpuscular Volume 93.8 FL (87-102); Mean Platelet Volume 11.9 FL (9.6-12.0); Neutrophils % 70.2 % (38.7-73.9); Platelet Count 103 T/CUMM (130-400); Red Blood Count 4.49 MC/CUMM (3.8-5.5); Red Cell Distribution Width 13.1 % (9.3-17.3); White Blood Count 8.8 T/CUMM (4-12)
[2021-05-30 06:13] LABS: Hypochromasia Slight; Microcytosis Slight; Platelet Estimate Decreased
[2021-05-30 06:21] LABS: Calcium 9.1 MG/DL (8.5-10.1); Osmolality,Calculated 291.3 MOS/KG (273-304); Potassium 3.5 MMOL/L (3.5-5.1)
[2021-05-30 06:26] LABS: Albumin 3.2 G/DL (3.4-5.0); Bilirubin,Direct 0.4 MG/DL (0.0-0.20); Bilirubin,Indirect 1.9 MG/DL (0.0-1.0); Bilirubin,Total 2.3 MG/DL (0.2-1.0); Total Protein 7.3 G/DL (6.4-8.2)
[2021-05-30] MEDS: FUROSEMIDE 40 MG/4 ML VIAL IV SCH ×3 (06:30→17:10)
[2021-05-30] MEDS: CEFEPIME 1,000 MG in SODIUM CHLORIDE 0.9% 100 ML IV SCH ×3 (06:33→18:08)
[2021-05-30] MEDS: LEVOTHYROXINE 175 MCG TABLET PO SCH (07:09)
[2021-05-30] MEDS: INSULIN LISPRO 100 UNIT/ML SUBCUT SCH ×4 (07:14→22:02)
[2021-05-30] MEDS: PANTOPRAZOLE 40 MG TABLET PO SCH (09:03)
[2021-05-30] MEDS: SPIRONOLACTONE 50 MG TABLET PO SCH (09:03)
[2021-05-30] MEDS: ASPIRIN CHEW 81 MG TABLET PO SCH (09:03)
[2021-05-30] MEDS: TRIAMCINOLONE 0.1% CREAM 15 GM TUBE TOP SCH ×2 (09:04→21:47)
[2021-05-30] MEDS ORDERED: DEXTROSE 50% 25 GM/50 ML VIAL IV PRN (12:35)
[2021-05-30] MEDS ORDERED: GLUCAGON 1 MG VIAL IM PRN (12:35)
[2021-05-30] MEDS: ROSUVASTATIN 20 MG TABLET PO SCH (21:42)
[2021-05-30] MEDS: carvediloL 3.125 MG TABLET PO SCH (21:43)
[2021-05-30] MEDS: SACUBITRIL/VALSARTAN 49-51 MG TABLET PO SCH (21:44)
[2021-05-30] MEDS: AMIODARONE 200 MG TABLET PO SCH (21:44)
[2021-05-30] MEDS: MINERAL OIL/PETROLATUM OPH OINT 3.5 GM TUBE BOTH EYES SCH (21:56)
[2021-05-31] MEDS: CEFEPIME 1,000 MG in SODIUM CHLORIDE 0.9% 100 ML IV SCH ×5 (00:36→21:49)
[2021-05-31] MEDS: ALBUTEROL/IPRATROPIUM 3 ML NEB RESP TX SCH ×4 (00:54→19:33)
[2021-05-31] MEDS: LEVOTHYROXINE 175 MCG TABLET PO SCH (06:20)
[2021-05-31 06:39] LABS: Calcium 8.9 MG/DL (8.5-10.1); Potassium 3.2 MMOL/L (3.5-5.1)
[2021-05-31] MEDS ORDERED: POTASSIUM CHLORIDE 20 MEQ TABLET PO ONE (08:41)
[2021-05-31] MEDS: INSULIN LISPRO 100 UNIT/ML SUBCUT SCH ×4 (09:19→21:48)
[2021-05-31] MEDS: AMIODARONE 200 MG TABLET PO SCH ×2 (09:20→21:48)
[2021-05-31] MEDS: SPIRONOLACTONE 50 MG TABLET PO SCH (09:20)
[2021-05-31] MEDS: SACUBITRIL/VALSARTAN 49-51 MG TABLET PO SCH ×2 (09:20→21:48)
[2021-05-31] MEDS: PANTOPRAZOLE 40 MG TABLET PO SCH (09:20)
[2021-05-31] MEDS: ASPIRIN CHEW 81 MG TABLET PO SCH (09:20)
[2021-05-31] MEDS: carvediloL 3.125 MG TABLET PO SCH ×2 (09:20→21:48)
[2021-05-31] MEDS: POTASSIUM CHLORIDE RIDER 20 MEQ/100 ML PREMIX IV PRN (09:21)
[2021-05-31] MEDS: FUROSEMIDE 40 MG/4 ML VIAL IV SCH ×2 (09:26→18:36)
[2021-05-31] MEDS: TRIAMCINOLONE 0.1% CREAM 15 GM TUBE TOP SCH ×2 (09:26→21:54)
[2021-05-31] MEDS ORDERED: PHENOL 1.4% THROAT SPRAY 177 ML BOTTLE PO PRN (14:21)
[2021-05-31 18:40] LABS: CDT Result Negative (Negative); CDT Specimen Source STOOL
[2021-05-31] MEDS: ROSUVASTATIN 20 MG TABLET PO SCH (21:48)
[2021-05-31] MEDS: MINERAL OIL/PETROLATUM OPH OINT 3.5 GM TUBE BOTH EYES SCH (23:48)
[2021-06-01] MEDS: ALBUTEROL/IPRATROPIUM 3 ML NEB RESP TX SCH ×4 (00:06→18:57)
[2021-06-01] MEDS: CEFEPIME 1,000 MG in SODIUM CHLORIDE 0.9% 100 ML IV SCH ×2 (03:27→08:16)
[2021-06-01] MEDS: LEVOTHYROXINE 175 MCG TABLET PO SCH (06:38)
[2021-06-01 07:57] LABS: Basophils % 0.2 % (0.0-0.8); Eosinophils # 0.6 10*3/uL (0.0-0.87); Eosinophils % 6.8 % (0.00-10.9); Hematocrit 40.7 VOL% (35.7-47.0); Immature Granulocytes % 1.4 %; Immature Granulocytes Absolute 0.12 #; Lymphocytes # 1.9 10*3/uL (1.4-4.0); Lymphocytes % 22.5 % (21.3-54.2); Mean Corpuscular HGB Conc 31.9 GM/DL (32-36); Mean Corpuscular Volume 91.9 FL (87-102); Mean Platelet Volume 11.9 FL (9.6-12.0); Monocytes % 9.4 % (1.7-12.7); Neutrophils % 59.7 % (38.7-73.9); Platelet Count 125 T/CUMM (130-400); Red Blood Count 4.43 MC/CUMM (3.8-5.5); Red Cell Distribution Width 12.9 % (9.3-17.3); White Blood Count 8.6 T/CUMM (4-12)
[2021-06-01] MEDS: FUROSEMIDE 40 MG/4 ML VIAL IV SCH ×2 (08:12→16:29)
[2021-06-01] MEDS: metOLazone 2.5 MG TABLET PO SCH (08:13)
[2021-06-01] MEDS: SACUBITRIL/VALSARTAN 49-51 MG TABLET PO SCH ×2 (08:14→20:27)
[2021-06-01] MEDS: POTASSIUM GLUCONATE 500 MG TABLET PO SCH (08:14)
[2021-06-01] MEDS: SPIRONOLACTONE 50 MG TABLET PO SCH (08:14)
[2021-06-01] MEDS: PANTOPRAZOLE 40 MG TABLET PO SCH (08:14)
[2021-06-01] MEDS: AMIODARONE 200 MG TABLET PO SCH (08:14)
[2021-06-01] MEDS: BUDESONIDE/FORMOTEROL 160-4.5 INHALER 6 GM INH SCH (08:15)
[2021-06-01] MEDS: carvediloL 3.125 MG TABLET PO SCH (08:15)
[2021-06-01] MEDS: ASPIRIN CHEW 81 MG TABLET PO SCH (08:15)
[2021-06-01] MEDS: TRIAMCINOLONE 0.1% CREAM 15 GM TUBE TOP SCH ×2 (08:16→20:31)
[2021-06-01 08:34] LABS: Albumin 3.1 G/DL (3.4-5.0); Bilirubin,Direct 0.27 MG/DL (0.0-0.20); Bilirubin,Indirect 1.6 MG/DL (0.0-1.0); Bilirubin,Total 1.9 MG/DL (0.20-1.00); Calcium 8.8 MG/DL (8.5-10.1); Osmolality,Calculated 291.3 MOS/KG (273-304); Potassium 3.5 MMOL/L (3.5-5.1); Total Protein 7.1 G/DL (6.4-8.2)
[2021-06-01] MEDS: INSULIN LISPRO 100 UNIT/ML SUBCUT SCH ×4 (09:06→20:29)
[2021-06-01] MEDS: cefTRIAXone 2,000 MG in SODIUM CHLORIDE 0.9% 100 ML IV SCH (17:41)
[2021-06-01] MEDS: carvediloL 6.25 MG TABLET PO SCH (20:29)
[2021-06-01] MEDS: MINERAL OIL/PETROLATUM OPH OINT 3.5 GM TUBE BOTH EYES SCH (20:30)
[2021-06-02] MEDS: ALBUTEROL/IPRATROPIUM 3 ML NEB RESP TX SCH ×4 (00:30→19:30)
[2021-06-02] MEDS: LEVOTHYROXINE 175 MCG TABLET PO SCH (07:37)
[2021-06-02 08:08] LABS: Basophils % 0.4 % (0.0-0.8); Eosinophils # 0.5 10*3/uL (0.0-0.87); Eosinophils % 6.8 % (0.00-10.9); Hematocrit 40.8 VOL% (35.7-47.0); Hemoglobin 12.7 GM/DL (12.0-16.0); Immature Granulocytes % 1.4 %; Immature Granulocytes Absolute 0.11 #; Lymphocytes # 2.2 10*3/uL (1.4-4.0); Lymphocytes % 28.6 % (21.3-54.2); Mean Corpuscular HGB Conc 31.1 GM/DL (32-36); Mean Corpuscular Volume 92.7 FL (87-102); Mean Platelet Volume 11.9 FL (9.6-12.0); Monocytes % 11.1 % (1.7-12.7); Neutrophils % 51.7 % (38.7-73.9); Platelet Count 135 T/CUMM (130-400); Red Cell Distribution Width 12.7 % (9.3-17.3); White Blood Count 7.8 T/CUMM (4-12)
[2021-06-02 08:22] LABS: Calcium 8.9 MG/DL (8.5-10.1); Potassium 3.3 MMOL/L (3.5-5.1)
[2021-06-02] MEDS: INSULIN LISPRO 100 UNIT/ML SUBCUT SCH ×4 (09:05→20:55)
[2021-06-02] MEDS: ASPIRIN CHEW 81 MG TABLET PO SCH (09:18)
[2021-06-02] MEDS: carvediloL 6.25 MG TABLET PO SCH ×2 (09:18→20:57)
[2021-06-02] MEDS: metOLazone 2.5 MG TABLET PO SCH (09:19)
[2021-06-02] MEDS: PANTOPRAZOLE 40 MG TABLET PO SCH (09:21)
[2021-06-02] MEDS: SPIRONOLACTONE 50 MG TABLET PO SCH (09:21)
[2021-06-02] MEDS: AMIODARONE 200 MG TABLET PO SCH (09:22)
[2021-06-02] MEDS: SACUBITRIL/VALSARTAN 49-51 MG TABLET PO SCH ×2 (09:22→20:56)
[2021-06-02] MEDS: BUDESONIDE/FORMOTEROL 160-4.5 INHALER 6 GM INH SCH (09:23)
[2021-06-02] MEDS: TRIAMCINOLONE 0.1% CREAM 15 GM TUBE TOP SCH ×2 (09:24→20:58)
[2021-06-02] MEDS: FUROSEMIDE 40 MG/4 ML VIAL IV SCH (09:25)
[2021-06-02] MEDS: POTASSIUM GLUCONATE 500 MG TABLET PO SCH (11:28)
[2021-06-02] MEDS: cefTRIAXone 2,000 MG in SODIUM CHLORIDE 0.9% 100 ML IV SCH (11:30)
[2021-06-02] MEDS: FUROSEMIDE 40 MG TABLET PO SCH (16:58)
[2021-06-02] MEDS: ROSUVASTATIN 20 MG TABLET PO SCH (21:01)
[2021-06-02] MEDS: MINERAL OIL/PETROLATUM OPH OINT 3.5 GM TUBE BOTH EYES SCH (21:02)
[2021-06-03] MEDS: ALBUTEROL/IPRATROPIUM 3 ML NEB RESP TX SCH ×2 (01:42→07:52)
[2021-06-03] MEDS: cefTRIAXone 2,000 MG in SODIUM CHLORIDE 0.9% 100 ML IV SCH (04:02)
[2021-06-03 04:27] LABS: Basophils % 0.6 % (0.0-0.8); Eosinophils # 0.4 10*3/uL (0.0-0.87); Hematocrit 38.4 VOL% (35.7-47.0); Hemoglobin 12.1 GM/DL (12.0-16.0); Immature Granulocytes % 2.5 %; Immature Granulocytes Absolute 0.18 #; Lymphocytes # 2.1 10*3/uL (1.4-4.0); Lymphocytes % 29.3 % (21.3-54.2); Mean Corpuscular HGB Conc 31.5 GM/DL (32-36); Mean Corpuscular Volume 92.5 FL (87-102); Mean Platelet Volume 11.5 FL (9.6-12.0); Monocytes % 12.3 % (1.7-12.7); Neutrophils % 50.3 % (38.7-73.9); Platelet Count 124 T/CUMM (130-400); Red Blood Count 4.15 MC/CUMM (3.8-5.5); Red Cell Distribution Width 12.8 % (9.3-17.3); White Blood Count 7.1 T/CUMM (4-12)
[2021-06-03 04:35] LABS: Calcium 9.6 MG/DL (8.5-10.1); Osmolality,Calculated 286.2 MOS/KG (273-304); Potassium 3.4 MMOL/L (3.5-5.1)
[2021-06-03 04:38] LABS: Albumin 3.2 G/DL (3.4-5.0); Bilirubin,Direct 0.19 MG/DL (0.0-0.20); Bilirubin,Total 1.2 MG/DL (0.20-1.00); Total Protein 6.7 G/DL (6.4-8.2)
[2021-06-03 04:57] LABS: Atypical Lymphocytes Few; Eosinophils 7 % (0-10); Hypochromasia 1+; Lymphocytes 33 % (20-55); Nucleated Red Blood Cells 1 (0-5); Segmented Neutrophils 52 % (50-85); Total Cells Counted 100
[2021-06-03 04:58] LABS: Microcytosis 1+; Ovalocytes Slight; Platelet Estimate Adequate
[2021-06-03 08:16] VITALS: BP 82/48
[2021-06-03] MEDS: ASPIRIN CHEW 81 MG TABLET PO SCH (10:11)
[2021-06-03] MEDS: SACUBITRIL/VALSARTAN 49-51 MG TABLET PO SCH (10:11)
[2021-06-03] MEDS: INSULIN LISPRO 100 UNIT/ML SUBCUT SCH (10:11)
[2021-06-03] MEDS: SPIRONOLACTONE 50 MG TABLET PO SCH (10:12)
[2021-06-03] MEDS: LEVOTHYROXINE 175 MCG TABLET PO SCH (10:12)
[2021-06-03] MEDS: POTASSIUM GLUCONATE 500 MG TABLET PO SCH (10:12)
[2021-06-03] MEDS: carvediloL 6.25 MG TABLET PO SCH (10:12)
[2021-06-03] MEDS: BUDESONIDE/FORMOTEROL 160-4.5 INHALER 6 GM INH SCH (10:12)
[2021-06-03] MEDS: AMIODARONE 200 MG TABLET PO SCH (10:12)
[2021-06-03] MEDS: FUROSEMIDE 40 MG TABLET PO SCH (10:13)
[2021-06-03] MEDS: PANTOPRAZOLE 40 MG TABLET PO SCH (10:13)
[2021-06-03] MEDS: TRIAMCINOLONE 0.1% CREAM 15 GM TUBE TOP SCH (10:13)
[2021-06-03] MEDS: metOLazone 2.5 MG TABLET PO SCH (10:13)
== END 2021-06-03 10:58 | disposition home health service (06) | DRG 871 ==
LOC: N.ED 19:39 → N.EDINP 20:47 → SUATTDRO 20:47 → N.ICU 21:06 → N.4E 05-30 10:27
PROVIDERS: ADMIT Family Medicine; ATTEND Family Medicine

== ENCOUNTER 2022-02-22 09:51 | Inpatient (IN) ==
[2022-02-22] MEDS ORDERED: FUROSEMIDE 100 MG/10 ML VIAL IV STA (10:07)
[2022-02-22] MEDS ORDERED: MORPHINE 2 MG/1 ML SYRINGE ONE (10:11)
[2022-02-22] MEDS ORDERED: MORPHINE 2 MG/1 ML SYRINGE IV STA ×2 (10:12→10:27)
[2022-02-22] MEDS ORDERED: ETOMIDATE 20 MG/10 ML VIAL IV ONE (10:26)
[2022-02-22] MEDS ORDERED: ROCURONIUM 100 MG/10 ML VIAL IV ONE (10:26)
[2022-02-22 11:08] LABS: Albumin 3.7 G/DL (3.4-5.0); Calcium 9.1 MG/DL (8.5-10.1); Osmolality,Calculated 292.8 MOS/KG (273-304); Potassium 4.6 MMOL/L (3.5-5.1); Total Protein 7.5 G/DL (6.4-8.2)
[2022-02-22 11:21] LABS: Arterial Base Excess iSTAT -9 MMOL/L (-2.5-2.5); Arterial Bicarbonate iSTAT 20.2 MMOL/L (20-26); Arterial O2 Saturation iSTAT 92 % (95-100); Arterial PCO2 iSTAT 56 MM HG (35-48); Arterial PO2 iSTAT 83 MM HG (80-95); Arterial Total CO2 iSTAT 22 MMO/L (23-27); Arterial pH iSTAT 7.166 (7.35-7.45)
[2022-02-22 11:35] LABS: Basophils # 0.1 10*3/uL (0.0-0.2); Basophils % 0.2 % (0.0-0.8); Hematocrit 48.2 VOL% (35.7-47.0); Immature Granulocytes % 0.8 %; Immature Granulocytes Absolute 0.17 #; Lymphocytes # 1.7 10*3/uL (1.4-4.0); Lymphocytes % 7.5 % (21.3-54.2); Mean Corpuscular HGB Conc 31.1 GM/DL (32-36); Mean Corpuscular Volume 101.5 FL (87-102); Mean Platelet Volume 11.2 FL (9.6-12.0); Monocytes % 7.5 % (1.7-12.7); Platelet Count 155 T/CUMM (130-400); Red Blood Count 4.75 MC/CUMM (3.8-5.5); Red Cell Distribution Width 13.7 % (9.3-17.3); White Blood Count 22.4 T/CUMM (4-12)
[2022-02-22 13:00] LABS: Anisocytosis Slight; Band Neutrophils 10 % (0-10); Lymphocytes 11 % (20-55); Macrocytosis 1+; Platelet Estimate Normal; Segmented Neutrophils 70 % (50-85); Total Cells Counted 100
[2022-02-22 14:04] LABS: Hyaline Casts,Urine 12 /LPF (0-3); Mucus,Urine Few /LPF (Occasional); RBC,Urine 11 /HPF (0-4); Squamous Epithelial Cell,Urine Occasional /HPF (0-10)
[2022-02-22 14:05] LABS: Bilirubin,Urine Negative (Negative); Blood, Urine Moderate mg/dL (Negative); Glucose,Urine (UA) >1000 mg/dL (Negative); Ketones,Urine Negative (Negative); Nitrite,Urine Negative (Negative); Protein,Urine 100 mg/dL (Negative); Urine Appearance Slightly Cloudy (Clear); Urine Color Yellow (Yellow); Urine Urobilinogen 0.2 eU/dL (<2.0)
[2022-02-22] MEDS ORDERED: GLUCAGON 1 MG VIAL IM PRN (14:13)
[2022-02-22] MEDS ORDERED: DEXTROSE 10% 250 ML BAG IV PRN (14:13)
[2022-02-22] MEDS: ENOXAPARIN 30 MG/0.3 ML SYRINGE SUBCUT SCH (14:42)
[2022-02-22] MEDS: PANTOPRAZOLE 40 MG VIAL IV SCH (14:42)
[2022-02-22] MEDS ORDERED: FUROSEMIDE 40 MG/4 ML VIAL IV ONE (15:00)
[2022-02-22] MEDS: INSULIN LISPRO 100 UNIT/ML SUBCUT SCH ×2 (18:17→23:29)
[2022-02-22] MEDS: FUROSEMIDE 40 MG/4 ML VIAL IV SCH (20:52)
[2022-02-22] MEDS: carvediloL 6.25 MG TABLET NG SCH (20:52)
[2022-02-22] MEDS ORDERED: carvediloL 6.25 MG TABLET PO SCH (21:00)
[2022-02-23 02:16] LABS: Basophils % 0.2 % (0.0-0.8); Hematocrit 39.6 VOL% (35.7-47.0); Hemoglobin 12.6 GM/DL (12.0-16.0); Immature Granulocytes % 0.3 %; Immature Granulocytes Absolute 0.03 #; Lymphocytes # 0.9 10*3/uL (1.4-4.0); Lymphocytes % 8.4 % (21.3-54.2); Mean Corpuscular HGB Conc 31.8 GM/DL (32-36); Mean Corpuscular Volume 97.3 FL (87-102); Mean Platelet Volume 11.6 FL (9.6-12.0); Monocytes % 6.5 % (1.7-12.7); Neutrophils % 84.6 % (38.7-73.9); Platelet Count 93 T/CUMM (130-400); Red Blood Count 4.07 MC/CUMM (3.8-5.5); Red Cell Distribution Width 13.5 % (9.3-17.3); White Blood Count 10.9 T/CUMM (4-12)
[2022-02-23 02:31] LABS: Albumin 3.3 G/DL (3.4-5.0); Bilirubin,Total 1.5 MG/DL (0.20-1.00); Calcium 8.5 MG/DL (8.5-10.1); Osmolality,Calculated 291.4 MOS/KG (273-304); Potassium 5.2 MMOL/L (3.5-5.1); Total Protein 6.6 G/DL (6.4-8.2)
[2022-02-23] MEDS: INSULIN LISPRO 100 UNIT/ML SUBCUT SCH ×5 (03:03→23:57)
[2022-02-23 06:12] LABS: Arterial Base Excess iSTAT 2 MMOL/L (-2.5-2.5); Arterial Bicarbonate iSTAT 25.2 MMOL/L (20-26); Arterial O2 Saturation iSTAT 99 % (95-100); Arterial PCO2 iSTAT 34 MM HG (35-48); Arterial PO2 iSTAT 149 MM HG (80-95); Arterial Total CO2 iSTAT 26 MMO/L (23-27); Arterial pH iSTAT 7.475 (7.35-7.45)
[2022-02-23] MEDS: FUROSEMIDE 40 MG/4 ML VIAL IV SCH ×2 (08:45→15:40)
[2022-02-23] MEDS: metOLazone 2.5 MG TABLET PO SCH (08:45)
[2022-02-23] MEDS: carvediloL 6.25 MG TABLET NG SCH (08:45)
[2022-02-23] MEDS: ASPIRIN CHEW 81 MG TABLET PO SCH (08:45)
[2022-02-23] MEDS: AMIODARONE 200 MG TABLET NG SCH (08:45)
[2022-02-23] MEDS ORDERED: ISOSORBIDE MONONITRATE 30 MG TABLET PO SCH (09:00)
[2022-02-23] MEDS ORDERED: AMIODARONE 200 MG TABLET PO SCH (09:00)
[2022-02-23] MEDS ORDERED: DEXTROSE 10% 250 ML BAG IV PRN (15:15)
[2022-02-23] MEDS: PANTOPRAZOLE 40 MG VIAL IV SCH (15:40)
[2022-02-23] MEDS: METOPROLOL TARTRATE 25 MG TABLET PO SCH ×2 (15:41→21:16)
[2022-02-23] MEDS: ENOXAPARIN 30 MG/0.3 ML SYRINGE SUBCUT SCH (15:41)
[2022-02-23] MEDS: MORPHINE 2 MG/1 ML SYRINGE IV PRN (21:39)
[2022-02-24 03:53] LABS: ABG Base Excess 4.2 MMOL/L (-2.5-2.5); ABG HCO3 28.2 MMOL/L (20-26); ABG Oxygen Saturation 98.8 % (95-100); ABG PCO2 31.4 MM HG (35-48); ABG PH 7.532 (7.35-7.45); ABG TCO2 23.1 MMOL/L (23-27)
[2022-02-24 05:52] LABS: Basophils % 0.2 % (0.0-0.8); Eosinophils # 0.1 10*3/uL (0.0-0.87); Hematocrit 38.9 VOL% (35.7-47.0); Hemoglobin 12.6 GM/DL (12.0-16.0); Immature Granulocytes % 0.4 %; Immature Granulocytes Absolute 0.03 #; Lymphocytes # 1.1 10*3/uL (1.4-4.0); Lymphocytes % 13.3 % (21.3-54.2); Mean Corpuscular HGB Conc 32.4 GM/DL (32-36); Mean Corpuscular Volume 95.1 FL (87-102); Mean Platelet Volume 12.1 FL (9.6-12.0); Monocytes % 10.1 % (1.7-12.7); Red Blood Count 4.09 MC/CUMM (3.8-5.5); Red Cell Distribution Width 13.6 % (9.3-17.3); White Blood Count 8.2 T/CUMM (4-12)
[2022-02-24 05:55] LABS: Platelet Count 81 T/CUMM (130-400)
[2022-02-24 06:12] LABS: Calcium 9.2 MG/DL (8.5-10.1); Osmolality,Calculated 301.4 MOS/KG (273-304); Potassium 3.3 MMOL/L (3.5-5.1)
[2022-02-24 06:17] LABS: Platelet Estimate Decreased
[2022-02-24] MEDS: INSULIN LISPRO 100 UNIT/ML SUBCUT SCH ×3 (06:18→17:47)
[2022-02-24] MEDS: FUROSEMIDE 40 MG/4 ML VIAL IV SCH (08:56)
[2022-02-24] MEDS: ASPIRIN CHEW 81 MG TABLET PO SCH (08:57)
[2022-02-24] MEDS: AMIODARONE 200 MG TABLET NG SCH (08:57)
[2022-02-24] MEDS: METOPROLOL TARTRATE 25 MG TABLET PO SCH ×3 (08:57→20:30)
[2022-02-24] MEDS: metOLazone 2.5 MG TABLET PO SCH (08:57)
[2022-02-24] MEDS: POTASSIUM BICARB EFFERVESCENT 20 MEQ TAB.EFF PO SCH ×4 (09:32→21:00)
[2022-02-24] MEDS: MORPHINE 2 MG/1 ML SYRINGE IV PRN ×2 (10:40→23:37)
[2022-02-24] MEDS: ENOXAPARIN 30 MG/0.3 ML SYRINGE SUBCUT SCH (14:12)
[2022-02-24] MEDS: PANTOPRAZOLE 40 MG VIAL IV SCH (14:12)
[2022-02-25] MEDS: INSULIN LISPRO 100 UNIT/ML SUBCUT SCH ×5 (00:21→21:15)
[2022-02-25 04:32] LABS: Basophils % 0.2 % (0.0-0.8); Eosinophils # 0.1 10*3/uL (0.0-0.87); Eosinophils % 0.9 % (0.00-10.9); Hematocrit 42.7 VOL% (35.7-47.0); Hemoglobin 13.6 GM/DL (12.0-16.0); Immature Granulocytes % 0.5 %; Immature Granulocytes Absolute 0.04 #; Lymphocytes # 0.7 10*3/uL (1.4-4.0); Lymphocytes % 8.3 % (21.3-54.2); Mean Corpuscular HGB Conc 31.9 GM/DL (32-36); Monocytes % 10.2 % (1.7-12.7); Neutrophils % 79.9 % (38.7-73.9); Red Blood Count 4.45 MC/CUMM (3.8-5.5); Red Cell Distribution Width 13.2 % (9.3-17.3); White Blood Count 8.5 T/CUMM (4-12)
[2022-02-25 04:46] LABS: Calcium 9.9 MG/DL (8.5-10.1); Osmolality,Calculated 300.7 MOS/KG (273-304); Potassium 4.7 MMOL/L (3.5-5.1)
[2022-02-25 04:49] LABS: Platelet Count 63 T/CUMM (130-400)
[2022-02-25] MEDS ORDERED: FONDAPARINUX 2.5 MG/0.5 ML SYRINGE SUBCUT SCH (09:00)
[2022-02-25] MEDS: ASPIRIN CHEW 81 MG TABLET PO SCH (09:07)
[2022-02-25] MEDS: PANTOPRAZOLE 40 MG TABLET PO SCH (09:08)
[2022-02-25] MEDS: metOLazone 2.5 MG TABLET PO SCH (09:08)
[2022-02-25] MEDS: METOPROLOL TARTRATE 25 MG TABLET PO SCH ×3 (09:08→20:55)
[2022-02-25] MEDS: AMIODARONE 200 MG TABLET PO SCH (09:08)
[2022-02-25] MEDS: FUROSEMIDE 40 MG/4 ML VIAL IV SCH (09:08)
[2022-02-25] MEDS: ALBUTEROL 2.5 MG/3 ML NEB RESP TX PRN (11:47)
[2022-02-25] MEDS: MORPHINE 2 MG/1 ML SYRINGE IV PRN (20:56)
[2022-02-26 04:33] LABS: Basophils % 0.4 % (0.0-0.8); Eosinophils # 0.2 10*3/uL (0.0-0.87); Eosinophils % 2.8 % (0.00-10.9); Hematocrit 42.2 VOL% (35.7-47.0); Hemoglobin 13.8 GM/DL (12.0-16.0); Immature Granulocytes % 0.3 %; Immature Granulocytes Absolute 0.02 #; Lymphocytes # 1.2 10*3/uL (1.4-4.0); Lymphocytes % 15.5 % (21.3-54.2); Mean Corpuscular HGB Conc 32.7 GM/DL (32-36); Mean Corpuscular Volume 95.5 FL (87-102); Monocytes % 9.1 % (1.7-12.7); Neutrophils % 71.9 % (38.7-73.9); Red Blood Count 4.42 MC/CUMM (3.8-5.5); Red Cell Distribution Width 12.9 % (9.3-17.3); White Blood Count 7.6 T/CUMM (4-12)
[2022-02-26 04:35] LABS: Platelet Count 118 T/CUMM (130-400)
[2022-02-26 04:37] LABS: Calcium 9.5 MG/DL (8.5-10.1); Osmolality,Calculated 300.1 MOS/KG (273-304); Potassium 3.4 MMOL/L (3.5-5.1)
[2022-02-26] MEDS: POTASSIUM CHLORIDE 20 MEQ TABLET PO PRN ×3 (06:13→16:33)
[2022-02-26] MEDS: INSULIN LISPRO 100 UNIT/ML SUBCUT SCH ×4 (07:51→20:38)
[2022-02-26] MEDS: FUROSEMIDE 40 MG/4 ML VIAL IV SCH (08:26)
[2022-02-26] MEDS: ASPIRIN CHEW 81 MG TABLET PO SCH (08:26)
[2022-02-26] MEDS: metOLazone 2.5 MG TABLET PO SCH (08:26)
[2022-02-26] MEDS: PANTOPRAZOLE 40 MG TABLET PO SCH (08:26)
[2022-02-26] MEDS: METOPROLOL TARTRATE 25 MG TABLET PO SCH ×3 (08:27→20:43)
[2022-02-26] MEDS: AMIODARONE 200 MG TABLET PO SCH (08:29)
[2022-02-26] MEDS: ENOXAPARIN 30 MG/0.3 ML SYRINGE SUBCUT SCH (08:31)
[2022-02-26] MEDS: ACETAMINOPHEN 325 MG TABLET PO PRN ×2 (16:32→20:42)
[2022-02-26] MEDS ORDERED: DAPAGLIFLOZIN 10 MG TABLET PO SCH (18:46)
[2022-02-26] MEDS: LEVALBUTEROL 0.63 MG/3 ML NEB RESP TX SCH (23:10)
[2022-02-27 04:01] LABS: Basophils % 0.3 % (0.0-0.8); Eosinophils # 0.2 10*3/uL (0.0-0.87); Eosinophils % 2.9 % (0.00-10.9); Hematocrit 42.6 VOL% (35.7-47.0); Immature Granulocytes % 0.5 %; Immature Granulocytes Absolute 0.03 #; Lymphocytes # 0.9 10*3/uL (1.4-4.0); Lymphocytes % 13.4 % (21.3-54.2); Mean Corpuscular HGB Conc 32.9 GM/DL (32-36); Mean Corpuscular Volume 95.1 FL (87-102); Mean Platelet Volume 12.2 FL (9.6-12.0); Monocytes % 14.1 % (1.7-12.7); Neutrophils % 68.8 % (38.7-73.9); Platelet Count 122 T/CUMM (130-400); Red Blood Count 4.48 MC/CUMM (3.8-5.5); Red Cell Distribution Width 12.7 % (9.3-17.3); White Blood Count 6.6 T/CUMM (4-12)
[2022-02-27 04:27] LABS: Calcium 9.4 MG/DL (8.5-10.1); Osmolality,Calculated 296.5 MOS/KG (273-304); Potassium 3.2 MMOL/L (3.5-5.1)
[2022-02-27] MEDS: POTASSIUM CHLORIDE 20 MEQ TABLET PO PRN ×4 (04:43→10:46)
[2022-02-27] MEDS: LEVOTHYROXINE 175 MCG TABLET PO SCH (06:17)
[2022-02-27] MEDS: LEVALBUTEROL 0.63 MG/3 ML NEB RESP TX SCH ×3 (07:00→23:00)
[2022-02-27] MEDS: metOLazone 2.5 MG TABLET PO SCH (08:13)
[2022-02-27] MEDS: DAPAGLIFLOZIN 5 MG TABLET PO SCH (08:13)
[2022-02-27] MEDS: METOPROLOL TARTRATE 25 MG TABLET PO SCH ×2 (08:13→14:48)
[2022-02-27] MEDS: AMIODARONE 200 MG TABLET PO SCH (08:14)
[2022-02-27] MEDS: PANTOPRAZOLE 40 MG TABLET PO SCH (08:14)
[2022-02-27] MEDS: ENOXAPARIN 30 MG/0.3 ML SYRINGE SUBCUT SCH (08:19)
[2022-02-27] MEDS: INSULIN LISPRO 100 UNIT/ML SUBCUT SCH ×4 (08:19→20:44)
[2022-02-27] MEDS: ASPIRIN CHEW 81 MG TABLET PO SCH (08:19)
[2022-02-27] MEDS: BUDESONIDE/FORMOTEROL 160-4.5 INHALER 6 GM INH SCH (08:21)
[2022-02-27] MEDS ORDERED: FUROSEMIDE 40 MG/4 ML VIAL IV SCH ×2 (09:00)
[2022-02-27] MEDS: ACETAMINOPHEN 325 MG TABLET PO PRN (16:24)
[2022-02-27] MEDS: METOPROLOL SUCCINATE XL 25 MG TABLET PO SCH (20:29)
[2022-02-27] MEDS: hydrALAZINE 10 MG TABLET PO SCH (20:29)
[2022-02-27] MEDS: ISOSORBIDE DINITRATE 10 MG TABLET PO SCH (20:44)
[2022-02-28 04:49] LABS: Albumin 3.3 G/DL (3.4-5.0); Calcium 9.2 MG/DL (8.5-10.1); Osmolality,Calculated 298.5 MOS/KG (273-304); Total Protein 7.6 G/DL (6.4-8.2)
[2022-02-28 04:57] LABS: Basophils % 0.4 % (0.0-0.8); Eosinophils # 0.1 10*3/uL (0.0-0.87); Eosinophils % 1.9 % (0.00-10.9); Hematocrit 41.9 VOL% (35.7-47.0); Hemoglobin 14.2 GM/DL (12.0-16.0); Immature Granulocytes % 0.3 %; Immature Granulocytes Absolute 0.02 #; Lymphocytes # 0.9 10*3/uL (1.4-4.0); Lymphocytes % 12.2 % (21.3-54.2); Mean Corpuscular HGB Conc 33.9 GM/DL (32-36); Mean Corpuscular Volume 92.9 FL (87-102); Mean Platelet Volume 12.1 FL (9.6-12.0); Neutrophils % 71.2 % (38.7-73.9); Platelet Count 136 T/CUMM (130-400); Red Blood Count 4.51 MC/CUMM (3.8-5.5); Red Cell Distribution Width 12.6 % (9.3-17.3); White Blood Count 7.3 T/CUMM (4-12)
[2022-02-28] MEDS: POTASSIUM CHLORIDE 20 MEQ TABLET PO PRN ×4 (05:44→13:38)
[2022-02-28] MEDS: LEVOTHYROXINE 175 MCG TABLET PO SCH (06:21)
[2022-02-28] MEDS: LEVALBUTEROL 0.63 MG/3 ML NEB RESP TX SCH ×2 (07:43→16:00)
[2022-02-28] MEDS: DAPAGLIFLOZIN 5 MG TABLET PO SCH (09:10)
[2022-02-28] MEDS: AMIODARONE 200 MG TABLET PO SCH (09:10)
[2022-02-28] MEDS: hydrALAZINE 10 MG TABLET PO SCH ×3 (09:10→21:38)
[2022-02-28] MEDS: METOPROLOL SUCCINATE XL 25 MG TABLET PO SCH ×2 (09:10→21:38)
[2022-02-28] MEDS: PANTOPRAZOLE 40 MG TABLET PO SCH (09:10)
[2022-02-28] MEDS: metOLazone 2.5 MG TABLET PO SCH (09:10)
[2022-02-28] MEDS: ASPIRIN CHEW 81 MG TABLET PO SCH (09:10)
[2022-02-28] MEDS: FUROSEMIDE 40 MG TABLET PO SCH ×2 (09:10→17:03)
[2022-02-28] MEDS: INSULIN LISPRO 100 UNIT/ML SUBCUT SCH ×4 (09:11→21:41)
[2022-02-28] MEDS: ENOXAPARIN 30 MG/0.3 ML SYRINGE SUBCUT SCH (09:11)
[2022-02-28] MEDS: ISOSORBIDE DINITRATE 10 MG TABLET PO SCH ×3 (09:11→21:38)
[2022-02-28] MEDS ORDERED: PHENOL 1.4% THROAT SPRAY 177 ML BOTTLE PO PRN (09:23)
[2022-02-28] MEDS: BUDESONIDE/FORMOTEROL 160-4.5 INHALER 6 GM INH SCH (09:45)
[2022-02-28] MEDS: ONDANSETRON 4 MG/2 ML VIAL IV PRN (17:13)
[2022-03-01] MEDS: LEVALBUTEROL 0.63 MG/3 ML NEB RESP TX SCH ×4 (04:13→22:51)
[2022-03-01] MEDS: LEVOTHYROXINE 175 MCG TABLET PO SCH (06:27)
[2022-03-01 06:37] LABS: Alanine Aminotransferase 24 U/L (13-56); Albumin 3.5 G/DL (3.4-5.0); Alkaline Phosphatase 53 U/L (45-117); Aspartate Amino Transferase < 3 U/L (0-37); Blood Urea Nitrogen 97 MG/DL (7-18); Calcium 9.3 MG/DL (8.5-10.1); Carbon Dioxide 26 MMOL/L (21-32); Estimated Glom Filtration Rate 22 ML/MIN; Glucose 149 MG/DL (74-106); Osmolality,Calculated 292.8 MOS/KG (273-304); Potassium 3.1 MMOL/L (3.5-5.1); Sodium 130 MMOL/L (136-145); Total Protein 8.2 G/DL (6.4-8.2)
[2022-03-01] MEDS: INSULIN LISPRO 100 UNIT/ML SUBCUT SCH ×4 (07:46→21:02)
[2022-03-01 08:22] LABS: Basophils % 0.2 % (0.0-0.8); Eosinophils # 0.1 10*3/uL (0.0-0.87); Eosinophils % 0.8 % (0.00-10.9); Hematocrit 41.7 VOL% (35.7-47.0); Immature Granulocytes % 0.6 %; Immature Granulocytes Absolute 0.05 #; Lymphocytes # 0.9 10*3/uL (1.4-4.0); Lymphocytes % 10.5 % (21.3-54.2); Mean Corpuscular HGB Conc 33.6 GM/DL (32-36); Mean Corpuscular Volume 92.1 FL (87-102); Mean Platelet Volume 11.2 FL (9.6-12.0); Monocytes % 12.9 % (1.7-12.7); Platelet Count 141 T/CUMM (130-400); Red Blood Count 4.53 MC/CUMM (3.8-5.5); Red Cell Distribution Width 12.5 % (9.3-17.3); White Blood Count 8.5 T/CUMM (4-12)
[2022-03-01] MEDS: FUROSEMIDE 40 MG TABLET PO SCH ×2 (08:45→16:21)
[2022-03-01] MEDS: BUDESONIDE/FORMOTEROL 160-4.5 INHALER 6 GM INH SCH (09:16)
[2022-03-01] MEDS: ASPIRIN CHEW 81 MG TABLET PO SCH (09:16)
[2022-03-01] MEDS: METOPROLOL SUCCINATE XL 25 MG TABLET PO SCH ×2 (09:16→21:02)
[2022-03-01] MEDS: ISOSORBIDE DINITRATE 10 MG TABLET PO SCH ×3 (09:16→21:02)
[2022-03-01] MEDS: AMIODARONE 200 MG TABLET PO SCH (09:16)
[2022-03-01] MEDS: ENOXAPARIN 30 MG/0.3 ML SYRINGE SUBCUT SCH (09:16)
[2022-03-01] MEDS: DAPAGLIFLOZIN 10 MG TABLET PO SCH (09:16)
[2022-03-01] MEDS: hydrALAZINE 10 MG TABLET PO SCH ×3 (09:16→21:04)
[2022-03-01] MEDS: PANTOPRAZOLE 40 MG TABLET PO SCH (09:16)
[2022-03-01] MEDS: metOLazone 2.5 MG TABLET PO SCH (09:16)
[2022-03-01] MEDS: ONDANSETRON 4 MG/2 ML VIAL IV PRN (19:40)
[2022-03-02] MEDS: LEVOTHYROXINE 175 MCG TABLET PO SCH (06:07)
[2022-03-02] MEDS: ONDANSETRON 4 MG/2 ML VIAL IV PRN (06:07)
[2022-03-02 06:26] LABS: Basophils % 0.2 % (0.0-0.8); Eosinophils # 0.1 10*3/uL (0.0-0.87); Eosinophils % 0.8 % (0.00-10.9); Hematocrit 43.1 VOL% (35.7-47.0); Hemoglobin 14.5 GM/DL (12.0-16.0); Immature Granulocytes % 0.7 %; Immature Granulocytes Absolute 0.06 #; Lymphocytes # 0.9 10*3/uL (1.4-4.0); Lymphocytes % 10.9 % (21.3-54.2); Mean Corpuscular HGB Conc 33.6 GM/DL (32-36); Mean Corpuscular Volume 92.5 FL (87-102); Mean Platelet Volume 12.3 FL (9.6-12.0); Monocytes % 13.7 % (1.7-12.7); Neutrophils % 73.7 % (38.7-73.9); Platelet Count 130 T/CUMM (130-400); Red Blood Count 4.66 MC/CUMM (3.8-5.5); Red Cell Distribution Width 12.6 % (9.3-17.3); White Blood Count 8.5 T/CUMM (4-12)
[2022-03-02 06:45] LABS: Albumin 3.7 G/DL (3.4-5.0); Bilirubin,Total 0.9 MG/DL (0.20-1.00); Calcium 9.4 MG/DL (8.5-10.1); Osmolality,Calculated 291.9 MOS/KG (273-304); Potassium 3.4 MMOL/L (3.5-5.1); Total Protein 8.3 G/DL (6.4-8.2)
[2022-03-02] MEDS: LEVALBUTEROL 0.63 MG/3 ML NEB RESP TX SCH (07:30)
[2022-03-02] MEDS ORDERED: BISACODYL 10 MG SUPP RECTAL ONE (08:04)
[2022-03-02] MEDS ORDERED: POLYETHYLENE GLYCOL POWDER 17 GM PACK PO PRN (08:06)
[2022-03-02] MEDS: metOLazone 2.5 MG TABLET PO SCH (09:10)
[2022-03-02] MEDS: ASPIRIN CHEW 81 MG TABLET PO SCH (09:44)
[2022-03-02] MEDS: BUDESONIDE/FORMOTEROL 160-4.5 INHALER 6 GM INH SCH (09:44)
[2022-03-02] MEDS: METOPROLOL SUCCINATE XL 25 MG TABLET PO SCH ×2 (09:44→20:56)
[2022-03-02] MEDS: PANTOPRAZOLE 40 MG TABLET PO SCH (09:44)
[2022-03-02] MEDS: FUROSEMIDE 40 MG TABLET PO SCH ×2 (09:44→16:54)
[2022-03-02] MEDS: ENOXAPARIN 30 MG/0.3 ML SYRINGE SUBCUT SCH (09:44)
[2022-03-02] MEDS: DAPAGLIFLOZIN 10 MG TABLET PO SCH (09:44)
[2022-03-02] MEDS: INSULIN LISPRO 100 UNIT/ML SUBCUT SCH ×4 (09:44→22:16)
[2022-03-02] MEDS: ISOSORBIDE DINITRATE 10 MG TABLET PO SCH ×3 (09:44→20:57)
[2022-03-02] MEDS: AMIODARONE 200 MG TABLET PO SCH (09:44)
[2022-03-02] MEDS: hydrALAZINE 10 MG TABLET PO SCH ×3 (09:44→20:57)
[2022-03-03] MEDS: LEVALBUTEROL 0.63 MG/3 ML NEB RESP TX SCH ×5 (00:56→23:05)
[2022-03-03] MEDS: ACETAMINOPHEN 325 MG TABLET PO PRN (03:01)
[2022-03-03] MEDS: ALBUTEROL 2.5 MG/3 ML NEB RESP TX PRN (05:16)
[2022-03-03 05:17] LABS: Basophils % 0.3 % (0.0-0.8); Eosinophils % 0.4 % (0.00-10.9); Hematocrit 45.6 VOL% (35.7-47.0); Hemoglobin 14.9 GM/DL (12.0-16.0); Immature Granulocytes % 0.4 %; Immature Granulocytes Absolute 0.04 #; Lymphocytes # 1.1 10*3/uL (1.4-4.0); Lymphocytes % 11.7 % (21.3-54.2); Mean Corpuscular HGB Conc 32.7 GM/DL (32-36); Mean Platelet Volume 12.6 FL (9.6-12.0); Monocytes % 13.6 % (1.7-12.7); Neutrophils % 73.6 % (38.7-73.9); Platelet Count 123 T/CUMM (130-400); Red Cell Distribution Width 12.3 % (9.3-17.3)
[2022-03-03] MEDS ORDERED: RACEPINEPHRINE 0.5 ML NEB RESP TX ONE (05:20)
[2022-03-03 05:41] LABS: Albumin 3.5 G/DL (3.4-5.0); Bilirubin,Total 1.1 MG/DL (0.20-1.00); Calcium 9.5 MG/DL (8.5-10.1); Osmolality,Calculated 286.2 MOS/KG (273-304); Potassium 2.9 MMOL/L (3.5-5.1); Total Protein 8.3 G/DL (6.4-8.2)
[2022-03-03] MEDS: LEVOTHYROXINE 175 MCG TABLET PO SCH (07:09)
[2022-03-03] MEDS: DEXAMETHASONE 4 MG/1 ML VIAL IV SCH ×3 (07:09→22:49)
[2022-03-03] MEDS: INSULIN LISPRO 100 UNIT/ML SUBCUT SCH ×4 (07:30→22:48)
[2022-03-03] MEDS: metOLazone 2.5 MG TABLET PO SCH (10:14)
[2022-03-03] MEDS: FUROSEMIDE 40 MG TABLET PO SCH ×2 (10:15→16:04)
[2022-03-03] MEDS: DAPAGLIFLOZIN 10 MG TABLET PO SCH (10:15)
[2022-03-03] MEDS: METOPROLOL SUCCINATE XL 25 MG TABLET PO SCH ×2 (10:15→21:06)
[2022-03-03] MEDS: ASPIRIN CHEW 81 MG TABLET PO SCH (10:15)
[2022-03-03] MEDS: hydrALAZINE 10 MG TABLET PO SCH ×3 (10:16→21:06)
[2022-03-03] MEDS: PANTOPRAZOLE 40 MG TABLET PO SCH (10:16)
[2022-03-03] MEDS: ENOXAPARIN 30 MG/0.3 ML SYRINGE SUBCUT SCH (10:16)
[2022-03-03] MEDS: AMIODARONE 200 MG TABLET PO SCH (10:16)
[2022-03-03] MEDS: ISOSORBIDE DINITRATE 10 MG TABLET PO SCH ×3 (10:21→21:06)
[2022-03-03] MEDS: BUDESONIDE/FORMOTEROL 160-4.5 INHALER 6 GM INH SCH (11:18)
[2022-03-03] MEDS: POTASSIUM CHLORIDE 20 MEQ TABLET PO PRN (23:54)
[2022-03-04] MEDS: POTASSIUM CHLORIDE 20 MEQ TABLET PO PRN ×8 (00:54→22:27)
[2022-03-04 05:01] LABS: Basophils % 0.1 % (0.0-0.8); Hematocrit 39.4 VOL% (35.7-47.0); Hemoglobin 13.1 GM/DL (12.0-16.0); Immature Granulocytes % 0.7 %; Immature Granulocytes Absolute 0.05 #; Lymphocytes # 0.4 10*3/uL (1.4-4.0); Lymphocytes % 5.7 % (21.3-54.2); Mean Corpuscular HGB Conc 33.2 GM/DL (32-36); Mean Corpuscular Volume 93.6 FL (87-102); Mean Platelet Volume 12.3 FL (9.6-12.0); Neutrophils % 87.5 % (38.7-73.9); Platelet Count 145 T/CUMM (130-400); Red Blood Count 4.21 MC/CUMM (3.8-5.5); Red Cell Distribution Width 12.2 % (9.3-17.3); White Blood Count 7.5 T/CUMM (4-12)
[2022-03-04 05:31] LABS: Albumin 3.6 G/DL (3.4-5.0); Calcium 9.4 MG/DL (8.5-10.1); Osmolality,Calculated 289.2 MOS/KG (273-304); Potassium 2.7 MMOL/L (3.5-5.1)
[2022-03-04] MEDS: DEXAMETHASONE 4 MG/1 ML VIAL IV SCH (06:12)
[2022-03-04] MEDS: LEVOTHYROXINE 175 MCG TABLET PO SCH (06:14)
[2022-03-04] MEDS: LEVALBUTEROL 0.63 MG/3 ML NEB RESP TX SCH ×2 (07:27→15:00)
[2022-03-04] MEDS: metOLazone 2.5 MG TABLET PO SCH (09:19)
[2022-03-04] MEDS: DAPAGLIFLOZIN 10 MG TABLET PO SCH (09:19)
[2022-03-04] MEDS: PANTOPRAZOLE 40 MG TABLET PO SCH (09:19)
[2022-03-04] MEDS: ASPIRIN CHEW 81 MG TABLET PO SCH (09:19)
[2022-03-04] MEDS: ISOSORBIDE DINITRATE 10 MG TABLET PO SCH ×3 (09:20→21:27)
[2022-03-04] MEDS: AMIODARONE 200 MG TABLET PO SCH (09:20)
[2022-03-04] MEDS: DEXAMETHASONE 4 MG TABLET PO SCH ×2 (09:20→21:27)
[2022-03-04] MEDS: METOPROLOL SUCCINATE XL 25 MG TABLET PO SCH ×2 (09:20→21:27)
[2022-03-04] MEDS: hydrALAZINE 10 MG TABLET PO SCH ×3 (09:21→21:27)
[2022-03-04] MEDS: INSULIN LISPRO 100 UNIT/ML SUBCUT SCH ×4 (09:22→21:44)
[2022-03-04] MEDS: ENOXAPARIN 30 MG/0.3 ML SYRINGE SUBCUT SCH (09:23)
[2022-03-04] MEDS: BUDESONIDE/FORMOTEROL 160-4.5 INHALER 6 GM INH SCH (09:24)
[2022-03-05] MEDS: LEVALBUTEROL 0.63 MG/3 ML NEB RESP TX SCH ×2 (00:50→07:23)
[2022-03-05] MEDS: POTASSIUM CHLORIDE 20 MEQ TABLET PO PRN ×3 (04:20→09:46)
[2022-03-05 04:46] LABS: Basophils % 0.1 % (0.0-0.8); Hematocrit 38.3 VOL% (35.7-47.0); Hemoglobin 12.9 GM/DL (12.0-16.0); Immature Granulocytes % 0.7 %; Immature Granulocytes Absolute 0.08 #; Lymphocytes # 0.5 10*3/uL (1.4-4.0); Lymphocytes % 4.9 % (21.3-54.2); Mean Corpuscular HGB Conc 33.7 GM/DL (32-36); Mean Corpuscular Volume 91.4 FL (87-102); Mean Platelet Volume 11.7 FL (9.6-12.0); Monocytes % 6.8 % (1.7-12.7); Neutrophils % 87.5 % (38.7-73.9); Platelet Count 143 T/CUMM (130-400); Red Blood Count 4.19 MC/CUMM (3.8-5.5); Red Cell Distribution Width 12.4 % (9.3-17.3)
[2022-03-05 05:08] LABS: Lymphocytes 3 % (20-55); Microcytosis 1+; Segmented Neutrophils 94 % (50-85); Total Cells Counted 100
[2022-03-05 05:09] LABS: Ovalocytes Slight
[2022-03-05 05:10] LABS: Calcium 9.4 MG/DL (8.5-10.1); Osmolality,Calculated 297.5 MOS/KG (273-304); Potassium 2.8 MMOL/L (3.5-5.1)
[2022-03-05 05:16] LABS: Albumin 3.6 G/DL (3.4-5.0); Bilirubin,Total 0.6 MG/DL (0.20-1.00); Calcium 9.3 MG/DL (8.5-10.1); Osmolality,Calculated 296.5 MOS/KG (273-304); Potassium 2.8 MMOL/L (3.5-5.1); Total Protein 7.7 G/DL (6.4-8.2)
[2022-03-05] MEDS: LEVOTHYROXINE 175 MCG TABLET PO SCH (06:20)
[2022-03-05] MEDS: DAPAGLIFLOZIN 10 MG TABLET PO SCH (09:45)
[2022-03-05] MEDS: METOPROLOL SUCCINATE XL 25 MG TABLET PO SCH (09:45)
[2022-03-05] MEDS: ASPIRIN CHEW 81 MG TABLET PO SCH (09:45)
[2022-03-05] MEDS: hydrALAZINE 10 MG TABLET PO SCH (09:46)
[2022-03-05] MEDS: FUROSEMIDE 40 MG TABLET PO SCH (09:46)
[2022-03-05] MEDS: AMIODARONE 200 MG TABLET PO SCH (09:46)
[2022-03-05] MEDS: DEXAMETHASONE 4 MG TABLET PO SCH (09:46)
[2022-03-05] MEDS: ISOSORBIDE DINITRATE 10 MG TABLET PO SCH (09:46)
[2022-03-05] MEDS: ENOXAPARIN 30 MG/0.3 ML SYRINGE SUBCUT SCH (09:46)
[2022-03-05] MEDS: PANTOPRAZOLE 40 MG TABLET PO SCH (09:46)
[2022-03-05] MEDS: INSULIN LISPRO 100 UNIT/ML SUBCUT SCH ×2 (09:47→13:03)
[2022-03-05] MEDS: BUDESONIDE/FORMOTEROL 160-4.5 INHALER 6 GM INH SCH (09:48)
[2022-03-05] MEDS: metOLazone 2.5 MG TABLET PO SCH (09:52)
[2022-03-05] MEDS ORDERED: POTASSIUM CHLORIDE 20 MEQ TABLET PO ONE (10:18)
[2022-03-05] MEDS ORDERED: NON-FORMULARY MEDICATION (Tiotropium-Olodaterol [Stiolto Respimat] 4 GM mist) INH PRN (10:39)
[2022-03-05] MEDS ORDERED: traZODone 50 MG TABLET PO PRN (10:39)
[2022-03-05 12:15] VITALS: BP 105/61
[2022-03-05] MEDS ORDERED: GABAPENTIN 600 MG TABLET PO SCH (21:00)
[2022-03-06] MEDS ORDERED: CHOLECALCIFEROL 1,000 UNIT TABLET PO SCH (09:00)
[2022-03-06] MEDS ORDERED: ROSUVASTATIN 20 MG TABLET PO SCH (09:00)
[2022-03-06] MEDS ORDERED: NEBIVOLOL 5 MG TABLET PO SCH (09:00)
[2022-03-06] MEDS ORDERED: POTASSIUM CHLORIDE 20 MEQ TABLET PO SCH (09:00)
[2022-03-06] MEDS ORDERED: AMIODARONE 200 MG TABLET PO SCH (09:00)
== END 2022-03-05 14:23 | disposition home or self-care (01) | DRG 291 ==
LOC: N.ED 09:51 → N.EDINP 11:01 → SUATTDRO 11:01 → N.CC 11:30 → N.TELEN 02-28 18:50
PROVIDERS: ADMIT Internal Medicine; ATTEND Family Medicine